=== PATIENT | male | born 1950 | race Caucasian/White ===

== ENCOUNTER 2017-05-22 08:31 | Inpatient (IN) | payer OTHER ==
[2017-05-22 10:48] VITALS: BMI 26.6
--- NOTE | 2017-05-22 13:13 | HP ---
CIWA Score - CIWA Score Nausea/Vomitin-No Nausea/No Vomiting Muscle Tremors: 4-Moderate,w/Arms Extend Anxiety: 3 Agitation: 4-Moderately Restless Paroxysmal Sweats: 3 Orientation: 0-Oriented Tacttile Disturbances: 0-None Auditory Disturbances: 0-None Visual Disturbances: 0-None Headache: 0-None Present CIWA-Ar Total Score: 14 Admission ROS BHS - HPI Chief Complaint: I am here for detox Allergies/Adverse Reactions: Allergies Allergy/AdvReac Type Severity Reaction Status Date / Time No Known Allergies Allergy Verified 05/22/17 10:59 History of Present Illness: pt is a 67yr old male with a history of alcohol dependence seeking detox for treatment. Exam Limitations: No Limitations - Ebola screening Have you traveled outside of the country in the last 21 days: No Have you had contact with anyone from an Ebola affected area: No Have you been sick,other than usual withdrawal symptoms: No Do you have a fever: No - Review of Systems Constitutional: Chills, Diaphoresis, Loss of Appetite, Night Sweats, Changes in sleep EENT: reports: No Symptoms Reported, Tearing Respiratory: reports: No Symptoms reported Cardiac: reports: No Symptoms Reported GI: reports: Diarrhea, Poor Appetite, Poor Fluid Intake, Indigestion : reports: No Symptoms Reported Musculoskeletal: reports: No Symptoms Reported Integumentary: reports: Flushing, Sweating Neuro: reports: Seizure (last seizure 2010), Tingling, Tremors Endocrine: reports: Excessive Sweating, Flushing, Intolerance to Cold, Intolerance to Heat Hematology: reports: No Symptoms Reported Psychiatric: reports: Judgement Intact, Mood/Affect Appropiate, Orientated x3, Agitated, Anxious, Depressed Other Systems: Reviewed and Negative Patient History - Patient Medical History Hx Anemia: No Hx Asthma: No Hx Chronic Obstructive Pulmonary Disease (COPD): No Hx Cancer: No Hx Cardiac Disorders: No Hx Congestive Heart Failure: No Hx Hypertension: Yes (on meds) Hx Hypercholesterolemia: Yes Hx Pacemaker: No HX Cerebrovascular Accident: No Hx Seizures: Yes (in 2010) Hx Dementia: No Hx Diabetes: No Hx Gastrointestinal Disorders: Yes (Hx of GERD) Hx Liver Disease: No Hx Genitourinary Disorders: No Hx Sexually Transmitted Disorders: No Hx Renal Disease (ESRD): No Hx Thyroid Disease: No Hx Human Immunodeficiency Virus (HIV): No (negative) Hx Hepatitis C: No (negative) Hx Depression: Yes Hx Suicide Attempt: No Hx Bipolar Disorder: No Hx Schizophrenia: No - Patient Surgical History Past Surgical History: Yes Hx Neurologic Surgery: Yes (Pituitary gland benigntumor removed in 2010) Anesthesia Reaction: No - PPD History Previous Implant?: Yes Documented Results: Negative w/o proof Implanted On Prior [facility] Admission?: No PPD to be Administered?: Yes - Reproductive History Patient is a Female of Child Bearing Age (11 -55 yrs old): No - Smoking Cessation Smoking history: Never smoked Hx Chewing Tobacco Use: No Initiated information on smoking cessation: No - Substance & Tx. History Hx Alcohol Use: Yes Hx Substance Use: No Substance Use Type: Alcohol Hx Substance Use Treatment: Yes (last detox 04/2017 [facility]) - Substances Abused Alcohol Route: Oral Frequency: Daily Amount used: 1 pint vodka Age of first use: 16 Date of Last Use: 05/21/17 Family Disease History - Family Disease History Family Disease History: Heart Disease: Father (), Other: Mother ( ) Admission Physical Exam [facility] - Vital Signs Vital Signs: Vital Signs - 24 hr 05/22/17 10:46 Temperature 97.2 F L Pulse Rate 73 Respiratory 20 Rate Blood Pressure 166/91 - Physical General Appearance: Yes: Appropriately Dressed, Moderate Distress, Tremorous, Irritable, Sweating, Anxious HEENTM: Yes: Hearing grossly Normal, Normal Voice Respiratory: Yes: Lungs Clear, Normal Breath Sounds, No Respiratory Distress Neck: Yes: No masses,lesions,Nodules Breast: Yes: Within Normal Limits Cardiology: Yes: Regular Rhythm, Regular Rate, S1, S2 Abdominal: Yes: Normal Bowel Sounds, Non Tender, Soft Back: Yes: Within Normal Limits Musculoskeletal: Yes: full range of Motion Extremities: Yes: Normal Capillary Refill, Normal Inspection, Tremors Neurological: Yes: Fully Oriented, Alert, Normal Response Integumentary: Yes: Normal Color, Diaphoresis Lymphatic: Yes: Within Normal Limits - Diagnostic (1) Alcohol dependence with uncomplicated withdrawal Current Visit: Yes Status: Chronic (2) Hypertension Current Visit: Yes Status: Chronic Qualifiers: Hypertension type: essential hypertension Qualified Code(s): I10 - Essential (primary) hypertension; I10 - Essential (primary) hypertension; I10 - Essential (primary) hypertension (3) Hyperlipidemia Current Visit: Yes Status: Chronic Qualifiers: Hyperlipidemia type: pure hypercholesterolemia Qualified Code(s): E78.00 - Pure hypercholesterolemia, unspecified; E78.00 - Pure hypercholesterolemia, unspecified; E78.00 - Pure hypercholesterolemia, unspecified; E78.0 - Pure hypercholesterolemia (4) GERD (gastroesophageal reflux disease) Current Visit: Yes Status: Chronic Qualifiers: Esophagitis presence: without esophagitis Qualified Code(s): K21.9 - Gastro-esophageal reflux disease without esophagitis; K21.9 - Gastro- esophageal reflux disease without esophagitis; K21.9 - Gastro-esophageal reflux disease without esophagitis Cleared for Admission BHS - Detox or Rehab S Level of Care: Medically Managed Detox Regimen/Protocol: Librium S Breath Alcohol Content Breath Alcohol Content: 0 Urine Drug Screen - Results Drug Screen Negative: No Urine Drug Screen Results: BZO-Benzodiazepines
[2017-05-22] MEDS ORDERED: ACETAMINOPHEN 325 MG TABLET (FP) PO PRN (13:16)
[2017-05-22] MEDS ORDERED: guaiFENesin/D-METHORPHAN HB 10 ML UNIT-DOSE CUPS PO PRN (13:16)
[2017-05-22] MEDS ORDERED: MAG HYDROX/AL HYDROX/SIMETH 30 ML UNIT-DOSE CUP PO PRN (13:16)
[2017-05-22] MEDS ORDERED: MAGNESIUM CITRATE 300 ML BOTTLE PO PRN (13:16)
[2017-05-22] MEDS ORDERED: IBUPROFEN 400 MG TABLET (FP) PO PRN (13:16)
[2017-05-22] MEDS ORDERED: chlordiazePOXIDE HCL 25 MG CAPSULE PO PRN (13:16)
[2017-05-22] MEDS ORDERED: LOPERAMIDE HCL 2 MG CAPSULE PO PRN (13:16)
[2017-05-22] MEDS ORDERED: P-EPHED 60MG/TRIPROLIDI 2.5MG TABLET PO PRN (13:16)
[2017-05-22] MEDS ORDERED: MENTHOL/PHENOL 1 EACH UD MM PRN (13:16)
[2017-05-22] MEDS ORDERED: hydrOXYzine PAMOATE 50 MG CAPSULE (FP) PO PRN (13:16)
[2017-05-22] MEDS ORDERED: diphenhydrAMINE HCL 50 MG CAPSULE PO PRN (13:16)
[2017-05-22] MEDS ORDERED: MAGNESIUM HYDROX 2400MG/30ML ORAL SUSPENSION 30 ML CUP PO PRN (13:16)
[2017-05-22] MEDS ORDERED: chlordiazePOXIDE HCL 25 MG CAPSULE PO ONE (13:37)
[2017-05-22] MEDS: chlordiazePOXIDE HCL 25 MG CAPSULE PO SCH ×2 (17:28→22:33)
[2017-05-22 20:25] LABS: URINE APPEARANCE CLEAR; URINE BILIRUBIN NEGATIVE (NEGATIVE); URINE BLOOD NEGATIVE (NEGATIVE); URINE COLOR LTYELLOW; URINE GLUCOSE (UA) NEGATIVE (NEGATIVE); URINE KETONE NEGATIVE (NEGATIVE); URINE NITRITE NEGATIVE (NEGATIVE); URINE PROTEIN NEGATIVE (NEGATIVE)
[2017-05-22] MEDS: DOXAZOSIN MESYLATE 4 MG TABLET PO SCH (22:34)
[2017-05-22] MEDS: THIAMINE HCL 100 MG TABLET (FP) PO SCH (22:34)
[2017-05-22 22:40] LABS: URINE LEUK ESTERASE Negative (NEGATIVE)
[2017-05-23] MEDS: chlordiazePOXIDE HCL 25 MG CAPSULE PO SCH ×4 (05:02→22:36)
--- NOTE | 2017-05-23 09:29 | EKG ---
Test Reason : Blood Pressure : / mmHG Vent. Rate : 054 BPM Atrial Rate : 054 BPM P-R Int : 160 ms QRS Dur : 092 ms QT Int : 422 ms P-R-T Axes : 011 -03 -02 degrees QTc Int : 400 ms SINUS BRADYCARDIA CANNOT RULE OUT ANTERIOR INFARCT , AGE UNDETERMINED NO PREVIOUS ECGS AVAILABLE Confirmed by HARRISON THOMAS MD ([id number]) on 05/23/2017 9:29:17 AM Referred By: Confirmed By:HARRISON THOMAS MD
[2017-05-23 09:51] LABS: MCH 26.2 pg (25.7-33.7); MCHC 32.3 g/dl (32.0-35.9); MEAN PLT VOLUME 9.1 fl (7.5-11.1); PLATELET COUNT 239 K/MM3 (134-434); RDW 15.7 % (11.9-15.9); WHITE BLOOD COUNT 5.1 K/mm3 (4.0-10.0)
[2017-05-23 09:53] LABS: ANION GAP 8 (8-16); CALCIUM 8.8 mg/dL (8.5-10.1); CO2 26 mmol/L (21-32); GLUCOSE,RANDOM 112 mg/dL (74-106)
[2017-05-23 09:56] LABS: ALK PHOS 57 U/L (45-117); CREATININE 1.1 mg/dL (0.7-1.3); SGOT/AST 15 U/L (15-37); SGPT/ALT 14 U/L (12-78); TOT PROT 7.7 g/dl (6.4-8.2)
[2017-05-23] MEDS: PANTOPRAZOLE 40 MG TABLET (FP) PO SCH (10:35)
[2017-05-23] MEDS: LISINOPRIL 10 MG TABLET (FP) PO SCH (10:35)
[2017-05-23] MEDS: FINASTERIDE 5 MG TABLET (FP) PO SCH (10:36)
[2017-05-23] MEDS: FENOFIBRIC ACID 135 MG CAP PO SCH (10:36)
[2017-05-23] MEDS: PRENATAL VITAMINS W/ FOLIC ACID TABLET (FP) PO SCH (10:37)
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
--- NOTE | 2017-05-23 12:49 | PN ---
[facility] CIWA - CIWA Score Nausea/Vomitin-No Nausea/No Vomiting Muscle Tremors: 4-Moderate,w/Arms Extend Anxiety: 3 Agitation: 2 Paroxysmal Sweats: 3 Orientation: 0-Oriented Tacttile Disturbances: 2-Mild Itch/Numbness/Burn Auditory Disturbances: 3-Moderate Harsh/Frighten Visual Disturbances: 0-None Headache: 0-None Present CIWA-Ar Total Score: 17 BHS Progress Note (SOAP) Subjective: Tremors, Sweating, Diarrhea. Objective: PT. A & O X 3, OBSERVED AMBULATING ON UNIT. NO ACUTE DISTRESS. 05/23/17 12:47 Vital Signs Temperature 98.4 F 05/23/17 10:00 Pulse Rate 96 H 05/23/17 10:00 Respiratory Rate 18 05/23/17 10:00 Blood Pressure 111/72 05/23/17 10:00 O2 Sat by Pulse Oximetry (%) Laboratory Tests 05/22/17 05/23/17 05/23/17 19:43 06:00 06:00 WBC 5.1 RBC 5.27 Hgb 13.8 Hct 42.7 MCV 81.0 MCH 26.2 MCHC 32.3 RDW 15.7 Plt Count 239 MPV 9.1 Sodium 137 Potassium 3.7 Chloride 103 Carbon Dioxide 26 Anion Gap 8 BUN 11 Creatinine 1.1 Creat Clearance w eGFR > 60 Random Glucose 112 H Calcium 8.8 Total Bilirubin 1.0 AST 15 ALT 14 Alkaline Phosphatase 57 Total Protein 7.7 Albumin 4.0 Urine Color Ltyellow Urine Appearance Clear Urine pH 7.0 Ur Specific [place] 1.010 Urine Protein Negative Urine Glucose (UA) Negative Urine Ketones Negative Urine Blood Negative Urine Nitrite Negative Urine Bilirubin Negative Urine Urobilinogen 2.0 Ur Leukocyte Esterase Negative RPR Titer 05/23/17 06:00 WBC RBC Hgb Hct MCV MCH MCHC RDW Plt Count MPV Sodium Potassium Chloride Carbon Dioxide Anion Gap BUN Creatinine Creat Clearance w eGFR Random Glucose Calcium Total Bilirubin AST ALT Alkaline Phosphatase Total Protein Albumin Urine Color Urine Appearance Urine pH Ur Specific [place] Urine Protein Urine Glucose (UA) Urine Ketones Urine Blood Urine Nitrite Urine Bilirubin Urine Urobilinogen Ur Leukocyte Esterase RPR Titer Nonreactive LABS NOTED. Assessment: 05/23/17 12:48 WITHDRAWAL SYMPTOMS. Plan: CONTINUE DETOX. PRN IMMODIUM FOR DIARRHEA. INCREASE DAILY PO FLUID INTAKE.
[2017-05-23] MEDS ORDERED: GABAPENTIN 100 MG CAPSULE (FP) PO SCH (14:00)
[2017-05-23] MEDS: ESCITALOPRAM OXALATE 10 MG TABLET (FP) PO SCH (15:07)
[2017-05-23] MEDS: THIAMINE HCL 100 MG TABLET (FP) PO SCH (22:35)
[2017-05-23] MEDS: DOXAZOSIN MESYLATE 4 MG TABLET PO SCH (22:36)
[2017-05-24] MEDS: chlordiazePOXIDE HCL 25 MG CAPSULE PO SCH ×2 (05:06→10:39)
[2017-05-24] MEDS: ESCITALOPRAM OXALATE 10 MG TABLET (FP) PO SCH (10:39)
[2017-05-24] MEDS: FINASTERIDE 5 MG TABLET (FP) PO SCH (10:39)
[2017-05-24] MEDS: PRENATAL VITAMINS W/ FOLIC ACID TABLET (FP) PO SCH (10:39)
[2017-05-24] MEDS: LISINOPRIL 10 MG TABLET (FP) PO SCH (10:39)
[2017-05-24] MEDS: FENOFIBRIC ACID 135 MG CAP PO SCH (10:39)
[2017-05-24] MEDS: PANTOPRAZOLE 40 MG TABLET (FP) PO SCH (10:40)
--- NOTE | 2017-05-24 16:09 | PN ---
S CIWA - CIWA Score Nausea/Vomitin Muscle Tremors: 4-Moderate,w/Arms Extend Anxiety: 3 Agitation: 2 Paroxysmal Sweats: 3 Orientation: 0-Oriented Tacttile Disturbances: 2-Mild Itch/Numbness/Burn Auditory Disturbances: 0-None Visual Disturbances: 0-None Headache: 0-None Present CIWA-Ar Total Score: 16 BHS Progress Note (SOAP) Subjective: Diarrhea, Sweating, Tremors. Objective: PT. A & O X 3, OBSERVED AMBULATING ON UNIT. NO ACUTE DISTRESS. 05/24/17 16:08 Vital Signs Temperature 96.2 F L 05/24/17 13:39 Pulse Rate 84 05/24/17 13:39 Respiratory Rate 18 05/24/17 13:39 Blood Pressure 118/70 05/24/17 13:39 O2 Sat by Pulse Oximetry (%) Laboratory Tests 05/22/17 05/23/17 05/23/17 19:43 06:00 06:00 WBC 5.1 RBC 5.27 Hgb 13.8 Hct 42.7 MCV 81.0 MCH 26.2 MCHC 32.3 RDW 15.7 Plt Count 239 MPV 9.1 Sodium 137 Potassium 3.7 Chloride 103 Carbon Dioxide 26 Anion Gap 8 BUN 11 Creatinine 1.1 Creat Clearance w eGFR > 60 Random Glucose 112 H Calcium 8.8 Total Bilirubin 1.0 AST 15 ALT 14 Alkaline Phosphatase 57 Total Protein 7.7 Albumin 4.0 Urine Color Ltyellow Urine Appearance Clear Urine pH 7.0 Ur Specific [place] 1.010 Urine Protein Negative Urine Glucose (UA) Negative Urine Ketones Negative Urine Blood Negative Urine Nitrite Negative Urine Bilirubin Negative Urine Urobilinogen 2.0 Ur Leukocyte Esterase Negative RPR Titer 05/23/17 06:00 WBC RBC Hgb Hct MCV MCH MCHC RDW Plt Count MPV Sodium Potassium Chloride Carbon Dioxide Anion Gap BUN Creatinine Creat Clearance w eGFR Random Glucose Calcium Total Bilirubin AST ALT Alkaline Phosphatase Total Protein Albumin Urine Color Urine Appearance Urine pH Ur Specific [place] Urine Protein Urine Glucose (UA) Urine Ketones Urine Blood Urine Nitrite Urine Bilirubin Urine Urobilinogen Ur Leukocyte Esterase RPR Titer Nonreactive LABS NOTED. Assessment: 05/24/17 16:08 WITHDRAWAL SYMPTOMS. Plan: CONTINUE DETOX. PRN IMMODIUM FOR DIARRHEA. INCREASE DAILY PO FLUID INTAKE.
[2017-05-24] MEDS: chlordiazePOXIDE 5 MG CAPSULE PO SCH ×2 (18:00→22:26)
[2017-05-24] MEDS: THIAMINE HCL 100 MG TABLET (FP) PO SCH (22:26)
[2017-05-24] MEDS: DOXAZOSIN MESYLATE 4 MG TABLET PO SCH (22:26)
[2017-05-25] MEDS: chlordiazePOXIDE 5 MG CAPSULE PO SCH ×2 (05:34→10:17)
[2017-05-25] MEDS: PRENATAL VITAMINS W/ FOLIC ACID TABLET (FP) PO SCH (10:17)
[2017-05-25] MEDS: LISINOPRIL 10 MG TABLET (FP) PO SCH (10:17)
[2017-05-25] MEDS: FENOFIBRIC ACID 135 MG CAP PO SCH (10:17)
[2017-05-25] MEDS: PANTOPRAZOLE 40 MG TABLET (FP) PO SCH (10:18)
[2017-05-25] MEDS: ESCITALOPRAM OXALATE 10 MG TABLET (FP) PO SCH (10:18)
[2017-05-25] MEDS: FINASTERIDE 5 MG TABLET (FP) PO SCH (10:18)
--- NOTE | 2017-05-25 12:28 | PN ---
BHS Progress Note (SOAP) Subjective: SLIGHT ANXIETY,SWEATS,FATIGUE. Objective: 05/25/17 12:27 Vital Signs Temperature 98.0 F 05/25/17 10:08 Pulse Rate 77 05/25/17 10:08 Respiratory Rate 18 05/25/17 10:08 Blood Pressure 141/74 05/25/17 10:08 O2 Sat by Pulse Oximetry (%) Laboratory Last Values WBC 5.1 K/mm3 (4.0-10.0) 05/23/17 06:00 RBC 5.27 M/mm3 (4.00-5.60) 05/23/17 06:00 Hgb 13.8 GM/dL (11.7-16.9) 05/23/17 06:00 Hct 42.7 % (35.4-49) 05/23/17 06:00 MCV 81.0 fl (80-96) 05/23/17 06:00 MCH 26.2 pg (25.7-33.7) 05/23/17 06:00 MCHC 32.3 g/dl (32.0-35.9) 05/23/17 06:00 RDW 15.7 % (11.9-15.9) 05/23/17 06:00 Plt Count 239 K/MM3 (134-434) 05/23/17 06:00 MPV 9.1 fl (7.5-11.1) 05/23/17 06:00 Sodium 137 mmol/L (136-145) 05/23/17 06:00 Potassium 3.7 mmol/L (3.5-5.1) 05/23/17 06:00 Chloride 103 mmol/L (98-107) 05/23/17 06:00 Carbon Dioxide 26 mmol/L (21-32) 05/23/17 06:00 Anion Gap 8 (8-16) 05/23/17 06:00 BUN 11 mg/dL (7-18) 05/23/17 06:00 Creatinine 1.1 mg/dL (0.7-1.3) 05/23/17 06:00 Creat Clearance w eGFR > 60 (>60) 05/23/17 06:00 Random Glucose 112 mg/dL (74-106) H 05/23/17 06:00 Calcium 8.8 mg/dL (8.5-10.1) 05/23/17 06:00 Total Bilirubin 1.0 mg/dL (0.2-1.0) 05/23/17 06:00 AST 15 U/L (15-37) 05/23/17 06:00 ALT 14 U/L (12-78) 05/23/17 06:00 Alkaline Phosphatase 57 U/L (45-117) 05/23/17 06:00 Total Protein 7.7 g/dl (6.4-8.2) 05/23/17 06:00 Albumin 4.0 g/dl (3.4-5.0) 05/23/17 06:00 Urine Color Ltyellow 05/22/17 19:43 Urine Appearance Clear 05/22/17 19:43 Urine pH 7.0 (5.0-8.0) 05/22/17 19:43 Ur Specific [place] 1.010 (1.005-1.025) 05/22/17 19:43 Urine Protein Negative (NEGATIVE) 05/22/17 19:43 Urine Glucose (UA) Negative (NEGATIVE) 05/22/17 19:43 Urine Ketones Negative (NEGATIVE) 05/22/17 19:43 Urine Blood Negative (NEGATIVE) 05/22/17 19:43 Urine Nitrite Negative (NEGATIVE) 05/22/17 19:43 Urine Bilirubin Negative (NEGATIVE) 05/22/17 19:43 Urine Urobilinogen 2.0 mg/dL (0.2-1.0) 05/22/17 19:43 Ur Leukocyte Esterase Negative (NEGATIVE) 05/22/17 19:43 RPR Titer Nonreactive (NONREACTIVE) 05/23/17 06:00 Assessment: 05/25/17 12:27 WITHDRAWAL SX Plan: CONTINUE DETOX
[2017-05-25] MEDS: chlordiazePOXIDE HCL 10 MG CAPSULE PO SCH ×2 (17:12→22:25)
[2017-05-25] MEDS: DOXAZOSIN MESYLATE 4 MG TABLET PO SCH (22:25)
[2017-05-25] MEDS: THIAMINE HCL 100 MG TABLET (FP) PO SCH (22:26)
[2017-05-26] MEDS: chlordiazePOXIDE HCL 10 MG CAPSULE PO SCH ×2 (05:44→10:26)
[2017-05-26 09:47] VITALS: BP 120/62; PULSE 89; TEMP 97.4
[2017-05-26] MEDS: ESCITALOPRAM OXALATE 10 MG TABLET (FP) PO SCH (10:26)
[2017-05-26] MEDS: PRENATAL VITAMINS W/ FOLIC ACID TABLET (FP) PO SCH (10:26)
[2017-05-26] MEDS: FENOFIBRIC ACID 135 MG CAP PO SCH (10:26)
[2017-05-26] MEDS: LISINOPRIL 10 MG TABLET (FP) PO SCH (10:26)
[2017-05-26] MEDS: PANTOPRAZOLE 40 MG TABLET (FP) PO SCH (10:26)
[2017-05-26] MEDS: FINASTERIDE 5 MG TABLET (FP) PO SCH (10:26)
--- NOTE | 2017-05-26 13:43 | DS ---
[facility] Detox Discharge Summary Admission Date: 05/22/17 Discharge Date: 05/26/17 - History Present History: Alcohol Dependence Additional Comments: PATIENT GOING HOME AT THIS TIME TO ATTEND TO PERSONAL BUSINESS, BUT REPORTS THAT HE WILL RETURN SOON FOR ADMISSION TO [facility]. PATIENT WAS DISCHARGED FROM DETOX UNIT IN STABLE MEDICAL CONDITION. Pertinent Past History: HTN, History of Seizures, GERD, Hyperlipidemia, Depression. - Physical Exam Results Vital Signs: Vital Signs Temperature 97.4 F L 05/26/17 09:47 Pulse Rate 89 05/26/17 09:47 Respiratory Rate 18 05/26/17 09:47 Blood Pressure 120/62 05/26/17 09:47 O2 Sat by Pulse Oximetry (%) Pertinent Admission Physical Exam Findings: WITHDRAWAL SYMPTOMS. Laboratory Tests 05/22/17 05/23/17 05/23/17 19:43 06:00 06:00 WBC 5.1 RBC 5.27 Hgb 13.8 Hct 42.7 MCV 81.0 MCH 26.2 MCHC 32.3 RDW 15.7 Plt Count 239 MPV 9.1 Sodium 137 Potassium 3.7 Chloride 103 Carbon Dioxide 26 Anion Gap 8 BUN 11 Creatinine 1.1 Creat Clearance w eGFR > 60 Random Glucose 112 H Calcium 8.8 Total Bilirubin 1.0 AST 15 ALT 14 Alkaline Phosphatase 57 Total Protein 7.7 Albumin 4.0 Urine Color Ltyellow Urine Appearance Clear Urine pH 7.0 Ur Specific [place] 1.010 Urine Protein Negative Urine Glucose (UA) Negative Urine Ketones Negative Urine Blood Negative Urine Nitrite Negative Urine Bilirubin Negative Urine Urobilinogen 2.0 Ur Leukocyte Esterase Negative RPR Titer 05/23/17 06:00 WBC RBC Hgb Hct MCV MCH MCHC RDW Plt Count MPV Sodium Potassium Chloride Carbon Dioxide Anion Gap BUN Creatinine Creat Clearance w eGFR Random Glucose Calcium Total Bilirubin AST ALT Alkaline Phosphatase Total Protein Albumin Urine Color Urine Appearance Urine pH Ur Specific [place] Urine Protein Urine Glucose (UA) Urine Ketones Urine Blood Urine Nitrite Urine Bilirubin Urine Urobilinogen Ur Leukocyte Esterase RPR Titer Nonreactive LABS NOTED. - Treatment Hospital Course: Detox Protocol Followed, Detoxed Safely, Responded well, Discharged Condition Good, Rehab Referral Accepted Patient has Accepted a Rehab Referral to: [facility]. - Medication Discharge Medications: Ambulatory Orders Escitalopram Oxalate [Lexapro -] 10 mg PO DAILY 05/22/17 Finasteride [Proscar -] 5 mg PO DAILY 05/22/17 Pantoprazole Sodium [Protonix -] 40 mg PO DAILY 05/22/17 Doxazosin Mesylate [Cardura -] 8 mg PO HS #30 mg 05/26/17 Fenofibrate Nanocrystallized [Fenofibrate] 145 mg PO DAILY #30 mg 05/26/17 Lisinopril [Zestril] 30 mg PO DAILY #30 mg 05/26/17 - Diagnosis (1) Alcohol dependence with uncomplicated withdrawal Status: Acute (2) Depressive disorder Status: Chronic (3) GERD (gastroesophageal reflux disease) Status: Chronic Qualifiers: Esophagitis presence: without esophagitis Qualified Code(s): K21.9 - Gastro-esophageal reflux disease without esophagitis; K21.9 - Gastro- esophageal reflux disease without esophagitis; K21.9 - Gastro-esophageal reflux disease without esophagitis (4) Hyperlipidemia Status: Chronic Qualifiers: Hyperlipidemia type: pure hypercholesterolemia Qualified Code(s): E78.00 - Pure hypercholesterolemia, unspecified; E78.00 - Pure hypercholesterolemia, unspecified; E78.00 - Pure hypercholesterolemia, unspecified; E78.0 - Pure hypercholesterolemia (5) Hypertension Status: Chronic Qualifiers: Hypertension type: essential hypertension Qualified Code(s): I10 - Essential (primary) hypertension; I10 - Essential (primary) hypertension; I10 - Essential (primary) hypertension (6) Alcohol-induced mood disorder Status: Suspected - AMA Did Patient Leave Against Medical Advice: No
== END 2017-05-26 09:35 | disposition home or self-care (01) | DRG 775 ==
LOC: YASAS 08:31 → Y3N 13:14
PROVIDERS: ADMIT Internal Medicine; ATTEND Internal Medicine
PROC: HZ2ZZZZ Detoxification Services for Substance Abuse Treatment (ICD-10-PCS; principal; 2017-05-22)
DX: F10.230 Alcohol dependence with withdrawal, uncomplicated (principal); F10.24 Alcohol dependence with alcohol-induced mood disorder; F32.9 Major depressive disorder, single episode, unspecified; I10 Essential (primary) hypertension; E78.00 Pure hypercholesterolemia, unspecified; K21.9 Gastro-esophageal reflux disease without esophagitis
CPT/HCPCS: 36415; 80053; 81003; 85027; 86593; 93005; 93010

== ENCOUNTER 2017-07-27 15:06 | Inpatient (IN) | payer OTHER ==
[2017-07-27 15:29] VITALS: BMI 25.8
[2017-07-27] MEDS ORDERED: MAG HYDROX/AL HYDROX/SIMETH 30 ML UNIT-DOSE CUP PO PRN (15:35)
[2017-07-27] MEDS ORDERED: LOPERAMIDE HCL 2 MG CAPSULE PO PRN (15:35)
[2017-07-27] MEDS ORDERED: P-EPHED 60MG/TRIPROLIDI 2.5MG TABLET PO PRN (15:35)
[2017-07-27] MEDS ORDERED: guaiFENesin/D-METHORPHAN HB 10 ML UNIT-DOSE CUPS PO PRN (15:35)
[2017-07-27] MEDS ORDERED: MAGNESIUM CITRATE 300 ML BOTTLE PO PRN (15:35)
[2017-07-27] MEDS ORDERED: ACETAMINOPHEN 325 MG TABLET (FP) PO PRN (15:35)
[2017-07-27] MEDS ORDERED: MAGNESIUM HYDROX 2400MG/30ML ORAL SUSPENSION 30 ML CUP PO PRN (15:35)
[2017-07-27] MEDS ORDERED: MENTHOL/PHENOL 1 EACH UD MM PRN (15:35)
--- NOTE | 2017-07-27 15:38 | HP ---
CIWA Score - CIWA Score Nausea/Vomitin Muscle Tremors: 3 Anxiety: 4-Mod. Anxious/Guarded Agitation: 4-Moderately Restless Paroxysmal Sweats: 1-Minimal Palms Moist Orientation: 0-Oriented Tacttile Disturbances: 0-None Auditory Disturbances: 0-None Visual Disturbances: 0-None Headache: 0-None Present CIWA-Ar Total Score: 14 Admission ROS BHS - HPI Chief Complaint: withdrawal sx Allergies/Adverse Reactions: Allergies Allergy/AdvReac Type Severity Reaction Status Date / Time No Known Allergies Allergy Verified 07/27/17 15:30 History of Present Illness: 67 years old male with long history of alcohol dependence has gerd hypertension bph hyperlipidemia and depression is admitted to detox Exam Limitations: No Limitations - Ebola screening Have you traveled outside of the country in the last 21 days: No Have you had contact with anyone from an Ebola affected area: No Have you been sick,other than usual withdrawal symptoms: No Do you have a fever: No - Review of Systems Constitutional: Changes in sleep, Weight Stable EENT: reports: No Symptoms Reported Respiratory: reports: No Symptoms reported Cardiac: reports: No Symptoms Reported GI: reports: Nausea, Poor Fluid Intake, Vomiting, Indigestion, Abdominal cramping : reports: Urgency Musculoskeletal: reports: No Symptoms Reported Integumentary: reports: No Symptoms Reported Neuro: reports: Seizure (2009 alcohol withdrawal), Tremors Endocrine: reports: No Symptoms Reported Hematology: reports: No Symptoms Reported Psychiatric: reports: Judgement Intact, Orientated x3, Anxious, Depressed Other Systems: Reviewed and Negative Patient History - Patient Medical History Hx Anemia: No Hx Asthma: No Hx Chronic Obstructive Pulmonary Disease (COPD): No Hx Cancer: No Hx Cardiac Disorders: No Hx Congestive Heart Failure: No Hx Hypertension: Yes (on meds) Hx Hypercholesterolemia: Yes Hx Pacemaker: No HX Cerebrovascular Accident: No Hx Seizures: Yes (in 2010) Hx Dementia: No Hx Diabetes: No Hx Gastrointestinal Disorders: Yes (Hx of GERD) Hx Liver Disease: No Hx Genitourinary Disorders: No Hx Sexually Transmitted Disorders: No Hx Renal Disease (ESRD): No Hx Thyroid Disease: No Hx Human Immunodeficiency Virus (HIV): No (negative) Hx Hepatitis C: No (negative) Hx Depression: Yes Hx Suicide Attempt: No Hx Bipolar Disorder: No Hx Schizophrenia: No - Patient Surgical History Past Surgical History: Yes Hx Neurologic Surgery: Yes (Pituitary gland benigntumor removed in 2010) Hx Cataract Extraction: No Hx Cardiac Surgery: No Hx Lung Surgery: No Hx Breast Surgery: No Hx Breast Biopsy: No Hx Abdominal Surgery: No Hx Appendectomy: No Hx Cholecystectomy: No Hx Genitourinary Surgery: No Hx Orthopedic Surgery: No Anesthesia Reaction: No - PPD History Previous Implant?: Yes Documented Results: Negative w/proof Implanted On Prior [facility] Admission?: Yes Date: 05/24/17 PPD to be Administered?: No - Smoking Cessation Smoking history: Never smoked Hx Chewing Tobacco Use: No Initiated information on smoking cessation: No - Substance & Tx. History Hx Alcohol Use: Yes Hx Substance Use: No Substance Use Type: Alcohol Hx Substance Use Treatment: Yes ([facility]07/13/17) - Substances Abused Alcohol Route: Oral Frequency: Daily Family Disease History - Family Disease History Family Disease History: Heart Disease: Father (), Brother, Other: Mother () Admission Physical Exam BHS - Vital Signs Vital Signs: Vital Signs - 24 hr 07/27/17 15:26 Temperature 97 F L Pulse Rate 108 H Respiratory 20 Rate Blood Pressure 110/65 - Physical General Appearance: Yes: Appropriately Dressed, Mild Distress, Thin, Tremorous, Irritable, Sweating, Anxious HEENTM: Yes: Hearing grossly Normal, Normal ENT Inspection, Normocephalic, Normal Voice Respiratory: Yes: Chest Non-Tender, Lungs Clear, Normal Breath Sounds, No Respiratory Distress, No Accessory Muscle Use Neck: Yes: Supple, Trachea in good position Breast: Yes: Breasts Symetrical Cardiology: Yes: Regular Rhythm, S1, S2, Tachycardia Abdominal: Yes: Normal Bowel Sounds, Non Tender, Soft Genitourinary: Yes: Within Normal Limits Back: Yes: Normal Inspection Musculoskeletal: Yes: full range of Motion, Gait Steady Extremities: Yes: Normal Range of Motion, Non-Tender, Tremors Neurological: Yes: Fully Oriented, Alert, Motor Strength 5/5, Normal Response, Depressed Affect Integumentary: Yes: Warm Lymphatic: Yes: Within Normal Limits - Diagnostic (1) Depression (emotion) Current Visit: Yes Status: Suspected Qualifiers: Depression Type: dysthymia Qualified Code(s): F34.1 - Dysthymic disorder (2) BPH (benign prostatic hyperplasia) Current Visit: Yes Status: Chronic Qualifiers: Lower urinary tract symptom presence: symptoms present Lower urinary tract symptom detail: post-void dribbling Qualified Code(s): N40.1 - Benign prostatic hyperplasia with lower urinary tract symptoms; N39.43 - Post-void dribbling; N39.43 - Post-void dribbling (3) Alcohol dependence with uncomplicated withdrawal Current Visit: Yes Status: Acute (4) GERD (gastroesophageal reflux disease) Current Visit: Yes Status: Chronic Qualifiers: Esophagitis presence: without esophagitis Qualified Code(s): K21.9 - Gastro -esophageal reflux disease without esophagitis (5) Hyperlipidemia Current Visit: Yes Status: Chronic Qualifiers: Hyperlipidemia type: pure hypercholesterolemia Qualified Code(s): E78.00 - Pure hypercholesterolemia, unspecified (6) Hypertension Current Visit: Yes Status: Chronic Qualifiers: Hypertension type: essential hypertension Qualified Code(s): I10 - Essential (primary) hypertension Cleared for Admission [facility] - Detox or Rehab [facility] Level of Care: Medically Managed Detox Regimen/Protocol: Librium S Breath Alcohol Content Breath Alcohol Content: 0.319 Urine Drug Screen - Results Drug Screen Negative: Yes
[2017-07-27] MEDS ORDERED: METHOCARBAMOL 500 MG TABLET PO ONE ×2 (15:43→22:15)
[2017-07-27] MEDS: chlordiazePOXIDE HCL 25 MG CAPSULE PO PRN (17:56)
[2017-07-27] MEDS ORDERED: DOXAZOSIN MESYLATE 8 MG TABLET PO SCH (22:00)
[2017-07-27] MEDS: THIAMINE HCL 100 MG TABLET (FP) PO SCH (22:09)
[2017-07-27] MEDS: chlordiazePOXIDE HCL 25 MG CAPSULE PO SCH (22:12)
[2017-07-27 22:50] LABS: URINE APPEARANCE SLCLOUDY; URINE BILIRUBIN NEGATIVE (NEGATIVE); URINE BLOOD NEGATIVE (NEGATIVE); URINE COLOR YELLOW; URINE GLUCOSE (UA) NEGATIVE (NEGATIVE); URINE KETONE NEGATIVE (NEGATIVE); URINE LEUK ESTERASE NEGATIVE (NEGATIVE); URINE NITRITE NEGATIVE (NEGATIVE); URINE PROTEIN NEGATIVE (NEGATIVE)
[2017-07-28] MEDS: chlordiazePOXIDE HCL 25 MG CAPSULE PO SCH ×4 (05:34→22:24)
--- NOTE | 2017-07-28 07:34 | CONSULT ---
[facility] Psychiatric Consult - Data Date of interview: 07/28/17 Admission source: [facility] Identifying data: This is 67 years old male with no psychiatric hosp[ italization history intoxicated with : Alcohol Substance Abuse History: - Smoking Cessation. Smoking history: Never smoked. Hx Chewing Tobacco Use: No. Initiated information on smoking cessation: No. - Substance & Tx. History. Hx Alcohol Use: Yes. Hx Substance Use: No. Substance Use Type: Alcohol. Hx Substance Use Treatment: Yes ([facility]07/13/17). - Substances Abused. Alcohol. Route: Oral. Frequency: Daily Medical History: HTN, BPH, Hyperlipidemia, GERD Psychiatric History: Patient reports history of depression, reports taking prior to admission: Celexa 20mg poqd. Trazodone 50mmg po qhs Physical/Sexual Abuse/Trauma History: Denies Additional Comment: Celexa 20mg poqd. Trazodone 50mmg po qhs Mental Status Exam - Mental Status Exam Alert and Oriented to: Time Cognitive Function: Fair Patient Appearance: Unkempt Mood: Sad Affect: Flat Patient Behavior: Sedated Speech Pattern: Delayed Voice Loudness: Mildly Soft/Quiet Thought Process: Circumstantial Thought Disorder: Being Controlled Hallucinations: Denies Suicidal Ideation: Denies Homicidal Ideation: Denies Insight/Judgement: Fair Sleep: Difficulty falling asleep Appetite: Weight loss Muscle strength/Tone: Mild Hypotonicity Gait/Station: Shuffling Additional Comments: Celexa 20mg poqd. Trazodone 50mmg po qhs Psychiatric Findings - Problem List ([place] 1, 2,3) (1) Alcohol dependence with uncomplicated withdrawal Current Visit: Yes Status: Acute (2) Depressive disorder Current Visit: No Status: Chronic (3) Alcohol-induced mood disorder Current Visit: No Status: Suspected - Initial Treatment Plan Initial Treatment Plan: Celexa 20mg poqd. Trazodone 50mmg po qhs
[2017-07-28 09:56] LABS: MCH 25.5 pg (25.7-33.7); MCHC 31.9 g/dl (32.0-35.9); MEAN CELL VOLUME 79.9 fl (80-96); MEAN PLT VOLUME 8.7 fl (7.5-11.1); PLATELET COUNT 180 K/MM3 (134-434); RDW 15.2 % (11.9-15.9); WHITE BLOOD COUNT 4.3 K/mm3 (4.0-10.0)
--- NOTE | 2017-07-28 10:03 | PN ---
S CIWA - CIWA Score Nausea/Vomitin-Mild Nausea/No Vomiting Muscle Tremors: 4-Moderate,w/Arms Extend Anxiety: 3 Agitation: 3 Paroxysmal Sweats: 3 Orientation: 0-Oriented Tacttile Disturbances: 0-None Auditory Disturbances: 0-None Visual Disturbances: 0-None Headache: 0-None Present CIWA-Ar Total Score: 14 BHS Progress Note (SOAP) Subjective: nausea irritable diarrhea sweats shakes Objective: 07/28/17 10:02 Vital Signs Temperature 98.2 F 07/28/17 06:32 Pulse Rate 101 H 07/28/17 06:32 Respiratory Rate 20 07/28/17 06:32 Blood Pressure 111/60 07/28/17 06:32 O2 Sat by Pulse Oximetry (%) Laboratory Tests 07/27/17 18:30 Urine Color Yellow Urine Appearance Slcloudy Urine pH 6.0 Ur Specific [place] 1.015 Urine Protein Negative Urine Glucose (UA) Negative Urine Ketones Negative Urine Blood Negative Urine Nitrite Negative Urine Bilirubin Negative Urine Urobilinogen 2.0 labs pending aaox3 ambulating no acute distress Assessment: 07/28/17 10:02 withdrawal sx Plan: continue detox increase fluids labs pending
[2017-07-28 10:04] LABS: ALBUMIN 3.3 g/dl (3.4-5.0); ALK PHOS 57 U/L (45-117); ANION GAP 12 (8-16); BILIRUBIN,TOTAL 1.7 mg/dL (0.2-1.0); CALCIUM 8.1 mg/dL (8.5-10.1); CO2 26 mmol/L (21-32); CREATININE 1.2 mg/dL (0.7-1.3); GLUCOSE,RANDOM 138 mg/dL (74-106); SGOT/AST 24 U/L (15-37); SGPT/ALT 20 U/L (12-78); TOT PROT 6.9 g/dl (6.4-8.2)
[2017-07-28] MEDS: PRENATAL VITAMINS W/ FOLIC ACID TABLET (FP) PO SCH (10:12)
[2017-07-28] MEDS: CITALOPRAM HYDROBROMIDE 20 MG TABLET (FP) PO SCH (10:13)
[2017-07-28] MEDS: PANTOPRAZOLE 40 MG TABLET (FP) PO SCH (10:13)
[2017-07-28] MEDS: LOSARTAN POTASSIUM 50 MG TABLET (FP) PO SCH (11:29)
[2017-07-28] MEDS: chlordiazePOXIDE HCL 25 MG CAPSULE PO PRN (12:37)
[2017-07-28 17:23] LABS: URINE LEUK ESTERASE Negative (NEGATIVE)
[2017-07-28] MEDS: DOXAZOSIN MESYLATE 4 MG TABLET PO SCH (22:24)
[2017-07-28] MEDS: traZODone HCL 50 MG TABLET (FP) PO SCH (22:24)
[2017-07-28] MEDS: THIAMINE HCL 100 MG TABLET (FP) PO SCH (22:24)
--- NOTE | 2017-07-29 01:55 | EKG ---
Test Reason : Blood Pressure : / mmHG Vent. Rate : 106 BPM Atrial Rate : 106 BPM P-R Int : 158 ms QRS Dur : 076 ms QT Int : 326 ms P-R-T Axes : 052 -24 018 degrees QTc Int : 433 ms SINUS TACHYCARDIA OTHERWISE NORMAL ECG WHEN COMPARED WITH ECG OF 22-MAY-2017 15:02, VENT. RATE HAS INCREASED BY 52 BPM Confirmed by MAGALYS MILLS MD ([id number]) on 07/29/2017 1:55:13 AM Referred By: Confirmed By:MAGALYS MILLS MD
[2017-07-29] MEDS: chlordiazePOXIDE HCL 25 MG CAPSULE PO SCH ×3 (06:37→17:08)
[2017-07-29] MEDS: CITALOPRAM HYDROBROMIDE 20 MG TABLET (FP) PO SCH (10:10)
[2017-07-29] MEDS: LOSARTAN POTASSIUM 50 MG TABLET (FP) PO SCH (10:10)
[2017-07-29] MEDS: PANTOPRAZOLE 40 MG TABLET (FP) PO SCH (10:10)
[2017-07-29] MEDS: PRENATAL VITAMINS W/ FOLIC ACID TABLET (FP) PO SCH (10:10)
--- NOTE | 2017-07-29 10:16 | PN ---
BHS Progress Note (SOAP) Subjective: feeling better little sweats Objective: 07/29/17 10:16 Vital Signs Temperature 98.3 F 07/29/17 06:17 Pulse Rate 72 07/29/17 06:17 Respiratory Rate 18 07/29/17 06:17 Blood Pressure 112/76 07/29/17 06:17 O2 Sat by Pulse Oximetry (%)
--- NOTE | 2017-07-29 10:20 | PN ---
S CIWA - CIWA Score Nausea/Vomitin-No Nausea/No Vomiting Muscle Tremors: 4-Moderate,w/Arms Extend Anxiety: 3 Agitation: 3 Paroxysmal Sweats: 3 Orientation: 0-Oriented Tacttile Disturbances: 0-None Auditory Disturbances: 0-None Visual Disturbances: 0-None Headache: 0-None Present CIWA-Ar Total Score: 13 BHS Progress Note (SOAP) Subjective: sweats shakes interrupted sleep body aches Objective: 07/29/17 10:18 Vital Signs Temperature 98.3 F 07/29/17 06:17 Pulse Rate 72 07/29/17 06:17 Respiratory Rate 18 07/29/17 06:17 Blood Pressure 112/76 07/29/17 06:17 O2 Sat by Pulse Oximetry (%) Laboratory Tests 07/27/17 07/28/17 07/28/17 18:30 07:00 07:00 WBC 4.3 RBC 5.45 Hgb 13.9 Hct 43.5 MCV 79.9 L MCH 25.5 L MCHC 31.9 L RDW 15.2 Plt Count 180 D MPV 8.7 Sodium 138 Potassium 3.8 Chloride 100 Carbon Dioxide 26 Anion Gap 12 BUN 18 D Creatinine 1.2 Creat Clearance w eGFR > 60 Random Glucose 138 H D Calcium 8.1 L Total Bilirubin 1.7 H D AST 24 D ALT 20 D Alkaline Phosphatase 57 Total Protein 6.9 Albumin 3.3 L Urine Color Yellow Urine Appearance Slcloudy Urine pH 6.0 Ur Specific [place] 1.015 Urine Protein Negative Urine Glucose (UA) Negative Urine Ketones Negative Urine Blood Negative Urine Nitrite Negative Urine Bilirubin Negative Urine Urobilinogen 2.0 Ur Leukocyte Esterase Negative RPR Titer 07/28/17 07:00 WBC RBC Hgb Hct MCV MCH MCHC RDW Plt Count MPV Sodium Potassium Chloride Carbon Dioxide Anion Gap BUN Creatinine Creat Clearance w eGFR Random Glucose Calcium Total Bilirubin AST ALT Alkaline Phosphatase Total Protein Albumin Urine Color Urine Appearance Urine pH Ur Specific [place] Urine Protein Urine Glucose (UA) Urine Ketones Urine Blood Urine Nitrite Urine Bilirubin Urine Urobilinogen Ur Leukocyte Esterase RPR Titer Nonreactive aaox3 ambulating no acute distress Assessment: 07/29/17 10:19 withdrawal sx Plan: continue detox increase fluids
[2017-07-29] MEDS: chlordiazePOXIDE 5 MG CAPSULE PO SCH (22:23)
[2017-07-29] MEDS: THIAMINE HCL 100 MG TABLET (FP) PO SCH (22:23)
[2017-07-29] MEDS: traZODone HCL 50 MG TABLET (FP) PO SCH (22:23)
[2017-07-29] MEDS: DOXAZOSIN MESYLATE 4 MG TABLET PO SCH (22:24)
[2017-07-30] MEDS: chlordiazePOXIDE 5 MG CAPSULE PO SCH ×3 (06:19→17:27)
--- NOTE | 2017-07-30 10:07 | PN ---
BHS Progress Note (SOAP) Subjective: sweats feeling better Objective: 07/30/17 10:05 Vital Signs Temperature 98.1 F 07/30/17 06:12 Pulse Rate 64 07/30/17 06:12 Respiratory Rate 16 07/30/17 06:12 Blood Pressure 122/58 07/30/17 06:12 O2 Sat by Pulse Oximetry (%) aaox3 ambulating no acute distress Assessment: 07/30/17 10:05 mild withdrawal sx Plan: continue detox d/c in am
[2017-07-30] MEDS: PRENATAL VITAMINS W/ FOLIC ACID TABLET (FP) PO SCH (10:12)
[2017-07-30] MEDS: LOSARTAN POTASSIUM 50 MG TABLET (FP) PO SCH (10:12)
[2017-07-30] MEDS: PANTOPRAZOLE 40 MG TABLET (FP) PO SCH (10:12)
[2017-07-30] MEDS: CITALOPRAM HYDROBROMIDE 20 MG TABLET (FP) PO SCH (10:12)
[2017-07-30] MEDS: chlordiazePOXIDE HCL 10 MG CAPSULE PO SCH (22:05)
[2017-07-30] MEDS: THIAMINE HCL 100 MG TABLET (FP) PO SCH (22:05)
[2017-07-30] MEDS: traZODone HCL 50 MG TABLET (FP) PO SCH (22:05)
[2017-07-30] MEDS: DOXAZOSIN MESYLATE 4 MG TABLET PO SCH (22:05)
[2017-07-31] MEDS: chlordiazePOXIDE HCL 10 MG CAPSULE PO SCH (05:30)
--- NOTE | 2017-07-31 08:06 | DS ---
[facility] Detox Discharge Summary Admission Date: 07/27/17 Discharge Date: 07/31/17 - History Present History: Alcohol Dependence - Physical Exam Results Vital Signs: Vital Signs Temperature 96.8 F L 07/31/17 06:27 Pulse Rate 66 07/31/17 06:27 Respiratory Rate 16 07/31/17 06:27 Blood Pressure 130/63 07/31/17 06:27 O2 Sat by Pulse Oximetry (%) - Treatment Hospital Course: Detox Protocol Followed, Detoxed Safely, Responded well, Discharged Condition Good, Rehab Referral Accepted - Medication Discharge Medications: Ambulatory Orders Pantoprazole Sodium [Protonix -] 40 mg PO DAILY 05/22/17 Doxazosin Mesylate [Cardura -] 8 mg PO HS #30 mg 05/26/17 Fenofibrate Nanocrystallized [Fenofibrate] 145 mg PO DAILY #30 mg 05/26/17 Losartan Potassium [Cozaar -] 50 mg PO DAILY 07/27/17 Citalopram Hydrobromide [Celexa -] 20 mg PO DAILY #30 tablet 07/28/17 Trazodone HCl [Desyrel -] 50 mg PO HS #30 tablet 07/28/17 - Diagnosis (1) Alcohol dependence with uncomplicated withdrawal Current Visit: Yes Status: Chronic (2) BPH (benign prostatic hyperplasia) Current Visit: Yes Status: Chronic Qualifiers: Lower urinary tract symptom presence: symptoms present Lower urinary tract symptom detail: post-void dribbling Qualified Code(s): N40.1 - Benign prostatic hyperplasia with lower urinary tract symptoms; N39.43 - Post-void dribbling; N39.43 - Post-void dribbling (3) GERD (gastroesophageal reflux disease) Current Visit: Yes Status: Chronic Qualifiers: Esophagitis presence: without esophagitis Qualified Code(s): K21.9 - Gastro -esophageal reflux disease without esophagitis (4) Hyperlipidemia Current Visit: Yes Status: Chronic Qualifiers: Hyperlipidemia type: pure hypercholesterolemia Qualified Code(s): E78.00 - Pure hypercholesterolemia, unspecified (5) Hypertension Current Visit: Yes Status: Chronic Qualifiers: Hypertension type: essential hypertension Qualified Code(s): I10 - Essential (primary) hypertension (6) Depression (emotion) Current Visit: Yes Status: Suspected Qualifiers: Depression Type: dysthymia Qualified Code(s): F34.1 - Dysthymic disorder (7) Depressive disorder Current Visit: No Status: Chronic (8) Alcohol-induced mood disorder Current Visit: No Status: Suspected - AMA Did Patient Leave Against Medical Advice: No
[2017-07-31 09:31] VITALS: BP 148/76; PULSE 99; TEMP 97
[2017-07-31] MEDS: CITALOPRAM HYDROBROMIDE 20 MG TABLET (FP) PO SCH (10:33)
[2017-07-31] MEDS: PRENATAL VITAMINS W/ FOLIC ACID TABLET (FP) PO SCH (10:33)
[2017-07-31] MEDS: LOSARTAN POTASSIUM 50 MG TABLET (FP) PO SCH (10:33)
[2017-07-31] MEDS: PANTOPRAZOLE 40 MG TABLET (FP) PO SCH (10:34)
== END 2017-07-31 09:18 | disposition home or self-care (01) | DRG 897 ==
LOC: YASAS 15:06 → Y6N 16:41
PROVIDERS: ADMIT Internal Medicine; ATTEND Internal Medicine
PROC: HZ2ZZZZ Detoxification Services for Substance Abuse Treatment (ICD-10-PCS; principal; 2017-07-27)
DX: F10.230 Alcohol dependence with withdrawal, uncomplicated (principal); F10.24 Alcohol dependence with alcohol-induced mood disorder; F34.1 Dysthymic disorder; F32.9 Major depressive disorder, single episode, unspecified; I10 Essential (primary) hypertension; E78.5 Hyperlipidemia, unspecified; N40.1 Benign prostatic hyperplasia with lower urinary tract symptoms; N39.43 Post-void dribbling; K21.9 Gastro-esophageal reflux disease without esophagitis; R00.0 Tachycardia, unspecified; Z86.69 Personal history of other diseases of the nervous system and sense organs
CPT/HCPCS: 36415; 80053; 81003; 85027; 86593; 93005; 93010

== ENCOUNTER 2018-09-04 13:18 | Inpatient (IN) | payer OTHER ==
[2018-09-04 14:55] VITALS: BMI 27.0
--- NOTE | 2018-09-04 17:33 | HP ---
CIWA Score Nausea/Vomitin-Int. Nausea w/Dry Heave Muscle Tremors: 4-Moderate,w/Arms Extend Anxiety: 4-Mod. Anxious/Guarded Agitation: 3 Paroxysmal Sweats: No Perspiration Orientation: 0-Oriented Tacttile Disturbances: 0-None Auditory Disturbances: 0-None Visual Disturbances: 0-None Headache: 0-None Present CIWA-Ar Total Score: 15 - Admission Criteria [facility] Guidelines: Admission for Medically Managed Detox: Requires at least one of the followin. CIWA greater than 12 2. Seizures within the past 24 hours 3. Delirium tremens within the past 24 hours 4. Hallucinations within the past 24 hours 5. Acute intervention needed for co occurring medical disorder 6. Acute intervention needed for co occurring psychiatric disorder 7. Severe withdrawal that cannot be handled at a lower level of care (continued vomiting, continued diarrhea, abnormal vital signs) requiring intravenous medication and/or fluids 8. Patient presents the following: CIWA greater than 12, Seizures, delirium tremens or hallucinations in the past 12 hours (HX ALCOHOL WITHDRAWAL SEIZURES.) Admission Criteria Met: Admission criteria met Admission ROS [facility] Chief Complaint: ALCOHOL WITHDRAWAL SX/INTOXICATION; " I WANT TO DETOX" Allergies/Adverse Reactions: Allergies Allergy/AdvReac Type Severity Reaction Status Date / Time No Known Allergies Allergy Verified 09/04/18 15:52 History of Present Illness: PT IS A 68 Y/O MALE WITH A HX OF EXTENDED PERIODS OF INTERMITTENT ALCOHOL BINGES, LAST DRANK TODAY AND SEEKING DETOX TREATMENT. PT REPORTS MULTIPLE CD TREATMENT EPISODES AND LAST TREATMENT AT [facility] . PT REPORTS HX OF HTN, GERD,HYPERLIPIDEMIA AND DEPRESSION. PT REPORTS HE GOES TO AN OUTPATIENT TREATMENT AT [facility] ON [address] [place] [address]. PT REPORTS HE HAS A PCP, DR. HECTOR SHIPMAN AT [facility] ON [address] [place] [address]. Exam Limitations: Intoxication - Ebola screening Have you traveled outside of the country in the last 21 days: No Have you had contact with anyone from an Ebola affected area: No Have you been sick,other than usual withdrawal symptoms: No Do you have a fever: No - Review of Systems Constitutional: Chills, Loss of Appetite, Night Sweats, Changes in sleep (TAKES TRAZODONE HS), Unintentional Wgt. Loss EENT: reports: No Symptoms Reported Respiratory: reports: No Symptoms reported Cardiac: reports: Lightheadedness (WHEN INTOXICATED) GI: reports: Nausea, Poor Appetite, Poor Fluid Intake : reports: Frequency (HX BPH), Urgency (HX BPH) Musculoskeletal: reports: Back Pain Integumentary: reports: No Symptoms Reported Neuro: reports: Seizure (DUE TO ALCOHOL WITHDRAWAL IN 2010-"WHEN I TRIED TO STOP DRINKING ON MY OWN".) Endocrine: reports: No Symptoms Reported Hematology: reports: No Symptoms Reported Psychiatric: reports: Orientated x3, Depressed Other Systems: Reviewed and Negative Patient History - Patient Medical History Hx Anemia: No Hx Asthma: No Hx Chronic Obstructive Pulmonary Disease (COPD): No Hx Cancer: No Hx Cardiac Disorders: No Hx Congestive Heart Failure: No Hx Hypertension: Yes (ON MEDS) Hx Hypercholesterolemia: Yes (ON MEDS) Hx Pacemaker: No HX Cerebrovascular Accident: No Hx Seizures: No Hx Dementia: No Hx Diabetes: No Hx Gastrointestinal Disorders: Yes (acid reflux) Hx Liver Disease: No Hx Genitourinary Disorders: Yes (HX BPH) Hx Sexually Transmitted Disorders: No (DENIES) Hx Renal Disease (ESRD): No Hx Thyroid Disease: No Hx Human Immunodeficiency Virus (HIV): No (negative) Hx Hepatitis C: No (negative) Hx Depression: Yes Hx Suicide Attempt: No (DENIES) Hx Bipolar Disorder: No Hx Schizophrenia: No - Patient Surgical History Past Surgical History: Yes Hx Neurologic Surgery: Yes (Pituitary gland benigntumor removed in 2010) Hx Cataract Extraction: No Hx Cardiac Surgery: No Hx Lung Surgery: No Hx Breast Surgery: No Hx Breast Biopsy: No Hx Abdominal Surgery: No Hx Appendectomy: No Hx Cholecystectomy: No Hx Genitourinary Surgery: No Hx Section: No Hx Orthopedic Surgery: No Anesthesia Reaction: No - PPD History Previous Implant?: Yes Documented Results: Negative w/proof Implanted On Prior R Admission?: Yes Date: 05/24/17 Results: 0 mm PPD to be Administered?: Yes - Reproductive History Patient is a Female of Child Bearing Age (11 -55 yrs old): No - Smoking Cessation Smoking history: Never smoked Have you smoked in the past 12 months: No Hx Chewing Tobacco Use: No Initiated information on smoking cessation: No - Substance & Tx. History Hx Alcohol Use: Yes Substance Use Type: Alcohol Hx Substance Use Treatment: Yes ([facility] ) - Substances Abused Alcohol-vodka Route: Oral Frequency: Daily Amount used: 1 pt. Age of first use: 16 Date of Last Use: 09/04/18 Family Disease History - Family Disease History Family Disease History: Heart Disease: Father (), Brother, Other: Mother () Admission Physical Exam [facility] - Vital Signs Vital Signs: Vital Signs - 24 hr 09/04/18 14:52 Temperature 98.9 F Pulse Rate 97 H Respiratory 18 Rate Blood Pressure 158/96 - Physical General Appearance: Yes: Moderate Distress, Alcohol on Breath, Intoxicated, Anxious HEENTM: Yes: EOMI, Normocephalic, SANTO, Pharynx Normal Respiratory: Yes: Chest Non-Tender, Lungs Clear, Normal Breath Sounds, No Respiratory Distress Neck: Yes: No masses,lesions,Nodules, Supple, Trachea in good position Breast: Yes: Breast Exam Deferred Cardiology: Yes: Regular Rhythm, Regular Rate, S1, S2 Abdominal: Yes: Normal Bowel Sounds, Non Tender, Soft, Protuberent Genitourinary: Yes: Frequency, Uregency (HX BPH) Back: Yes: Within Normal Limits Musculoskeletal: Yes: full range of Motion, Gait Steady Extremities: Yes: Normal Range of Motion, Non-Tender, Tremors Neurological: Yes: mechanical car checker II-XII NML intact, Fully Oriented, Alert, Motor Strength 5/5 Integumentary: Yes: Dry, Warm Lymphatic: Yes: Within Normal Limits - Diagnostic (1) Alcohol dependence with uncomplicated withdrawal Current Visit: Yes Status: Acute (2) BPH (benign prostatic hyperplasia) Current Visit: Yes Status: Chronic Qualifiers: Lower urinary tract symptom detail: urinary frequency (3) GERD (gastroesophageal reflux disease) Current Visit: Yes Status: Chronic Qualifiers: Esophagitis presence: esophagitis presence not specified Qualified Code(s) : K21.9 - Gastro-esophageal reflux disease without esophagitis (4) Hyperlipidemia Current Visit: Yes Status: Chronic Qualifiers: Hyperlipidemia type: pure hypercholesterolemia Qualified Code(s): E78.00 - Pure hypercholesterolemia, unspecified (5) Hypertension Current Visit: Yes Status: Chronic Qualifiers: Hypertension type: essential hypertension Qualified Code(s): I10 - Essential (primary) hypertension Cleared for Admission [facility] - Detox or Rehab [facility] Level of Care: Medically Managed Detox Regimen/Protocol: Librium [facility] Breath Alcohol Content Breath Alcohol Content: 0.336 Urine Drug Screen - Results Drug Screen Negative: No Urine Drug Screen Results: BZO-Benzodiazepines
[2018-09-04] MEDS ORDERED: MAG HYDROX/AL HYDROX/SIMETH 30 ML UNIT-DOSE CUP PO PRN (17:58)
[2018-09-04] MEDS ORDERED: MENTHOL/PHENOL 1 EACH UD MM PRN (17:58)
[2018-09-04] MEDS ORDERED: P-EPHED 60MG/TRIPROLIDI 2.5MG TABLET PO PRN (17:58)
[2018-09-04] MEDS ORDERED: MAGNESIUM CITRATE 300 ML BOTTLE PO PRN (17:58)
[2018-09-04] MEDS ORDERED: LOPERAMIDE HCL 2 MG CAPSULE PO PRN (17:58)
[2018-09-04] MEDS ORDERED: ACETAMINOPHEN 325 MG TABLET (FP) PO PRN (17:58)
[2018-09-04] MEDS ORDERED: IBUPROFEN 400 MG TABLET (FP) PO PRN (17:58)
[2018-09-04] MEDS ORDERED: guaiFENesin/D-METHORPHAN HB 10 ML UNIT-DOSE CUPS PO PRN (17:58)
[2018-09-04] MEDS ORDERED: MAGNESIUM HYDROX 2400MG/30ML ORAL SUSPENSION 30 ML CUP PO PRN (17:58)
[2018-09-04] MEDS: chlordiazePOXIDE HCL 25 MG CAPSULE PO PRN (19:30)
[2018-09-04] MEDS ORDERED: cloNIDine HCL 0.1 MG TABLET PO ONE ×2 (21:00→23:45)
[2018-09-04] MEDS ORDERED: DOXAZOSIN MESYLATE 8 MG TABLET PO SCH (22:00)
[2018-09-04] MEDS ORDERED: MELATONIN 5 MG TABLETS PO PRN (22:00)
[2018-09-04] MEDS: chlordiazePOXIDE HCL 25 MG CAPSULE PO SCH (22:02)
[2018-09-04] MEDS: THIAMINE HCL 100 MG TABLET (FP) PO SCH (22:02)
[2018-09-05] MEDS: chlordiazePOXIDE HCL 25 MG CAPSULE PO SCH ×4 (05:36→22:13)
[2018-09-05] MEDS ORDERED: cloNIDine HCL 0.1 MG TABLET PO PRN (07:32)
[2018-09-05] MEDS: chlordiazePOXIDE HCL 25 MG CAPSULE PO PRN (07:34)
--- NOTE | 2018-09-05 07:47 | PN ---
S Progress Note Note: restarted on hctz and hydralazine home meds noted on external med profile client does not recall last dose taken rx filled 08/25/2018 clonidine prn for residual withdrawal sx's Vital Signs (72 hours) 09/04/18 09/04/18 09/05/18 14:52 21:02 00:30 Temperature 98.9 F 98.5 F Pulse Rate 97 H 100 H Respiratory 18 18 18 Rate Blood Pressure 158/96 179/97 H 09/05/18 09/05/18 09/05/18 03:31 06:23 06:30 Temperature 97.6 F Pulse Rate 72 Respiratory 18 18 18 Rate Blood Pressure 186/83 H 09/05/18 07:16 Temperature 97.5 F L Pulse Rate 73 Respiratory 18 Rate Blood Pressure 177/89 H
[2018-09-05] MEDS ORDERED: PATIENT'S OWN MEDICATION (NON-FORMULARY) (Hydrochlorothiazide [Hydrochlorothiazide] 12.5 M PO SCH (10:00)
[2018-09-05] MEDS: PANTOPRAZOLE 40 MG TABLET (FP) PO SCH (10:24)
[2018-09-05] MEDS: LOSARTAN POTASSIUM 50 MG TABLET (FP) PO SCH (10:24)
[2018-09-05] MEDS: PRENATAL VITAMINS W/ FOLIC ACID TABLET (FP) PO SCH (10:25)
[2018-09-05 11:05] LABS: HEMATOCRIT 39.5 % (35.4-49); HEMOGLOBIN 13.5 GM/dL (11.7-16.9); MCH 27.2 pg (25.7-33.7); MCHC 34.1 g/dl (32.0-35.9); MEAN CELL VOLUME 79.7 fl (80-96); MEAN PLT VOLUME 8.2 fl (7.5-11.1); PLATELET COUNT 207 K/MM3 (134-434); RBC 4.95 M/mm3 (4.00-5.60); RDW 16.3 % (11.9-15.9)
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
[2018-09-05] MEDS: hydrALAZINE HCL 10 MG TABLET PO SCH ×4 (11:17→23:04)
[2018-09-05 11:19] LABS: ALBUMIN 3.6 g/dl (3.4-5.0); ALK PHOS 63 U/L (45-117); ANION GAP 11 MMOL/L (8-16); BILIRUBIN,TOTAL 0.9 mg/dL (0.2-1); BLOOD UREA NITROGEN 19 mg/dL (7-18); CALCIUM 7.6 mg/dL (8.5-10.1); CHLORIDE 103 mmol/L (98-107); CO2 24 mmol/L (21-32); CREATININE 1.3 mg/dL (0.55-1.3); GLUCOSE,RANDOM 126 mg/dL (74-106); POTASSIUM 3.7 mmol/L (3.5-5.1); SGOT/AST 197 U/L (15-37); SGPT/ALT 78 U/L (13-61); SODIUM 138 mmol/L (136-145); TOT PROT 7.4 g/dl (6.4-8.2)
[2018-09-05] MEDS: HYDROCHLOROTHIAZIDE 12.5 MG CAPSULE (FP) PO SCH (13:14)
--- NOTE | 2018-09-05 13:25 | EKG ---
Test Reason : Blood Pressure : / mmHG Vent. Rate : 095 BPM Atrial Rate : 095 BPM P-R Int : 162 ms QRS Dur : 088 ms QT Int : 350 ms P-R-T Axes : 037 -23 027 degrees QTc Int : 439 ms NORMAL SINUS RHYTHM MODERATE VOLTAGE CRITERIA FOR LVH, MAY BE NORMAL VARIANT WHEN COMPARED WITH ECG OF 27-JUL-2017 17:39, NO SIGNIFICANT CHANGE WAS FOUND Confirmed by HARRISON THOMAS MD ([id number]) on 09/05/2018 1:24:51 PM Referred By: Confirmed By:HARRISON THOMAS MD
[2018-09-05] MEDS ORDERED: ONDANSETRON *ODT* 4 MG TABLET SL PRN (13:30)
--- NOTE | 2018-09-05 13:37 | PN ---
S CIWA - CIWA Score Nausea/Vomitin Muscle Tremors: 4-Moderate,w/Arms Extend Anxiety: 2 Agitation: 0-Normal Activity Paroxysmal Sweats: No Perspiration Orientation: 0-Oriented Tacttile Disturbances: 2-Mild Itch/Numbness/Burn Auditory Disturbances: 2-Mild Harshness/Frighten Visual Disturbances: 0-None Headache: 0-None Present CIWA-Ar Total Score: 13 BHS Progress Note (SOAP) Subjective: Body Aches, Nausea, Tremors. Objective: PATIENT A & O X 3, OBSERVED AMBULATING ON UNIT. IN NO ACUTE DISTRESS. 09/05/18 13:32 Vital Signs Temperature 96.7 F L 09/05/18 13:15 Pulse Rate 76 09/05/18 13:15 Respiratory Rate 18 09/05/18 13:15 Blood Pressure 155/76 09/05/18 13:15 O2 Sat by Pulse Oximetry (%) Laboratory Tests 09/05/18 09/05/18 09/05/18 07:50 07:50 07:50 WBC 4.0 RBC 4.95 Hgb 13.5 Hct 39.5 MCV 79.7 L MCH 27.2 MCHC 34.1 RDW 16.3 H Plt Count 207 MPV 8.2 Sodium 138 Potassium 3.7 Chloride 103 Carbon Dioxide 24 Anion Gap 11 BUN 19 H Creatinine 1.3 Creat Clearance w eGFR 54.57 Random Glucose 126 H Calcium 7.6 L Total Bilirubin 0.9 AST 197 H ALT 78 H Alkaline Phosphatase 63 Total Protein 7.4 Albumin 3.6 RPR Titer Nonreactive LABS NOTED. Assessment: 09/05/18 13:34 WITHDRAWAL SYMPTOMS. HYPERTENSION. Plan: CONTINUE DETOX. CLONIDINE, 0.1 MG PO X 1 FOR ELEVATED BLOOD PRESSURE DESPITE TREATMENT. D/C IBUPROFEN AND MAGNESIUM-CONTAINING MEDS. FOR ABNORMAL ADMISSION RENAL LAB VALUES. REPEAT AST ON 09/07/2018 FOR ELEVATED ADMISSION VALUE.
[2018-09-05] MEDS ORDERED: cloNIDine HCL 0.1 MG TABLET PO ONE (13:45)
[2018-09-05] MEDS: traZODone HCL 50 MG TABLET (FP) PO SCH (22:13)
[2018-09-05] MEDS: CYCLOBENZAPRINE HCL 10 MG TABLET (FP) PO PRN (22:13)
[2018-09-05] MEDS: THIAMINE HCL 100 MG TABLET (FP) PO SCH (22:13)
[2018-09-05] MEDS: DOXAZOSIN MESYLATE 4 MG TABLET PO SCH (22:13)
[2018-09-05 23:38] LABS: URINE APPEARANCE CLEAR; URINE BILIRUBIN NEGATIVE (<2.0 mg/dL); URINE COLOR STRAW; URINE GLUCOSE (UA) NEGATIVE (NEGATIVE); URINE KETONE NEGATIVE (NEGATIVE); URINE LEUK ESTERASE NEGATIVE (NEGATIVE); URINE NITRITE NEGATIVE (NEGATIVE); URINE PROTEIN NEGATIVE (NEGATIVE); URINE UROBILINOGEN NEGATIVE mg/dL (0.2-1.0)
[2018-09-06] MEDS: hydrALAZINE HCL 10 MG TABLET PO SCH ×4 (05:30→23:01)
[2018-09-06] MEDS: chlordiazePOXIDE HCL 25 MG CAPSULE PO SCH ×3 (05:30→17:01)
[2018-09-06] MEDS: PANTOPRAZOLE 40 MG TABLET (FP) PO SCH (10:02)
[2018-09-06] MEDS: HYDROCHLOROTHIAZIDE 12.5 MG CAPSULE (FP) PO SCH (10:02)
[2018-09-06] MEDS: LOSARTAN POTASSIUM 50 MG TABLET (FP) PO SCH (10:02)
[2018-09-06] MEDS: PRENATAL VITAMINS W/ FOLIC ACID TABLET (FP) PO SCH (10:02)
--- NOTE | 2018-09-06 10:34 | PN ---
S CIWA - CIWA Score Nausea/Vomitin-Mild Nausea/No Vomiting Muscle Tremors: 3 Anxiety: 2 Agitation: 2 Paroxysmal Sweats: 1-Minimal Palms Moist Orientation: 0-Oriented Tacttile Disturbances: 0-None Auditory Disturbances: 0-None Visual Disturbances: 0-None Headache: 2-Mild CIWA-Ar Total Score: 11 S Progress Note (SOAP) Subjective: tremor sweating longest sobriety 1 + year, relapse during the holidays patient wants to be sober with the support of friends and family patient wants to go to out patient chemical rehab facility "works better for me " Objective: 09/06/18 10:33 Vital Signs Temperature 97.8 F 09/06/18 09:15 Pulse Rate 93 H 09/06/18 09:15 Respiratory Rate 20 09/06/18 09:15 Blood Pressure 118/72 09/06/18 09:15 O2 Sat by Pulse Oximetry (%) Laboratory Last Values WBC 4.0 K/mm3 (4.0-10.0) 09/05/18 07:50 RBC 4.95 M/mm3 (4.00-5.60) 09/05/18 07:50 Hgb 13.5 GM/dL (11.7-16.9) 09/05/18 07:50 Hct 39.5 % (35.4-49) 09/05/18 07:50 MCV 79.7 fl (80-96) L 09/05/18 07:50 MCH 27.2 pg (25.7-33.7) 09/05/18 07:50 MCHC 34.1 g/dl (32.0-35.9) 09/05/18 07:50 RDW 16.3 % (11.9-15.9) H 09/05/18 07:50 Plt Count 207 K/MM3 (134-434) 09/05/18 07:50 MPV 8.2 fl (7.5-11.1) 09/05/18 07:50 Sodium 138 mmol/L (136-145) 09/05/18 07:50 Potassium 3.7 mmol/L (3.5-5.1) 09/05/18 07:50 Chloride 103 mmol/L (98-107) 09/05/18 07:50 Carbon Dioxide 24 mmol/L (21-32) 09/05/18 07:50 Anion Gap 11 MMOL/L (8-16) 09/05/18 07:50 BUN 19 mg/dL (7-18) H 09/05/18 07:50 Creatinine 1.3 mg/dL (0.55-1.3) 09/05/18 07:50 Creat Clearance w eGFR 54.57 (>60) 09/05/18 07:50 Random Glucose 126 mg/dL (74-106) H 09/05/18 07:50 Calcium 7.6 mg/dL (8.5-10.1) L 09/05/18 07:50 Total Bilirubin 0.9 mg/dL (0.2-1) 09/05/18 07:50 AST 197 U/L (15-37) H 09/05/18 07:50 ALT 78 U/L (13-61) H 09/05/18 07:50 Alkaline Phosphatase 63 U/L (45-117) 09/05/18 07:50 Total Protein 7.4 g/dl (6.4-8.2) 09/05/18 07:50 Albumin 3.6 g/dl (3.4-5.0) 09/05/18 07:50 Urine Color Straw 09/05/18 18:01 Urine Appearance Clear 09/05/18 18:01 Urine pH 7.0 (5.0-8.0) 09/05/18 18:01 Ur Specific [place] 1.005 (1.010-1.035) L 09/05/18 18:01 Urine Protein Negative (NEGATIVE) 09/05/18 18:01 Urine Glucose (UA) Negative (NEGATIVE) 09/05/18 18:01 Urine Ketones Negative (NEGATIVE) 09/05/18 18:01 Urine Blood Negative (NEGATIVE) 09/05/18 18:01 Urine Nitrite Negative (NEGATIVE) 09/05/18 18:01 Urine Bilirubin Negative (<2.0 mg/dL) 09/05/18 18:01 Urine Urobilinogen Negative mg/dL (0.2-1.0) 09/05/18 18:01 Ur Leukocyte Esterase Negative (NEGATIVE) 09/05/18 18:01 RPR Titer Nonreactive (NONREACTIVE) 09/05/18 07:50 lab noted low calcium Assessment: 01/27/19 10:35 withdrawal sx hypocalcemia Plan: continue detox oscal supplement bid
[2018-09-06] MEDS: CALCIUM 250MG/VIT-D 125 UNITS 1 COMBO TABLET PO SCH ×2 (11:34→22:28)
[2018-09-06] MEDS: CYCLOBENZAPRINE HCL 10 MG TABLET (FP) PO PRN (17:30)
[2018-09-06] MEDS: traZODone HCL 50 MG TABLET (FP) PO SCH (22:28)
[2018-09-06] MEDS: THIAMINE HCL 100 MG TABLET (FP) PO SCH (22:28)
[2018-09-06] MEDS: chlordiazePOXIDE 5 MG CAPSULE PO SCH (22:28)
[2018-09-06] MEDS: DOXAZOSIN MESYLATE 4 MG TABLET PO SCH (22:56)
[2018-09-07] MEDS: chlordiazePOXIDE 5 MG CAPSULE PO SCH ×3 (05:46→17:29)
[2018-09-07] MEDS: hydrALAZINE HCL 10 MG TABLET PO SCH ×4 (05:46→23:07)
--- NOTE | 2018-09-07 09:36 | PN ---
BHS Progress Note (SOAP) Subjective: feeling better mild tremor less sweating social with peers in day room Objective: 09/07/18 09:35 Vital Signs Temperature 97.4 F L 09/07/18 09:23 Pulse Rate 91 H 09/07/18 09:23 Respiratory Rate 18 09/07/18 09:23 Blood Pressure 100/50 L 09/07/18 09:23 O2 Sat by Pulse Oximetry (%) Laboratory Last Values WBC 4.0 K/mm3 (4.0-10.0) 09/05/18 07:50 RBC 4.95 M/mm3 (4.00-5.60) 09/05/18 07:50 Hgb 13.5 GM/dL (11.7-16.9) 09/05/18 07:50 Hct 39.5 % (35.4-49) 09/05/18 07:50 MCV 79.7 fl (80-96) L 09/05/18 07:50 MCH 27.2 pg (25.7-33.7) 09/05/18 07:50 MCHC 34.1 g/dl (32.0-35.9) 09/05/18 07:50 RDW 16.3 % (11.9-15.9) H 09/05/18 07:50 Plt Count 207 K/MM3 (134-434) 09/05/18 07:50 MPV 8.2 fl (7.5-11.1) 09/05/18 07:50 Sodium 138 mmol/L (136-145) 09/05/18 07:50 Potassium 3.7 mmol/L (3.5-5.1) 09/05/18 07:50 Chloride 103 mmol/L (98-107) 09/05/18 07:50 Carbon Dioxide 24 mmol/L (21-32) 09/05/18 07:50 Anion Gap 11 MMOL/L (8-16) 09/05/18 07:50 BUN 19 mg/dL (7-18) H 09/05/18 07:50 Creatinine 1.3 mg/dL (0.55-1.3) 09/05/18 07:50 Creat Clearance w eGFR 54.57 (>60) 09/05/18 07:50 Random Glucose 126 mg/dL (74-106) H 09/05/18 07:50 Calcium 7.6 mg/dL (8.5-10.1) L 09/05/18 07:50 Total Bilirubin 0.9 mg/dL (0.2-1) 09/05/18 07:50 AST 197 U/L (15-37) H 09/05/18 07:50 ALT 78 U/L (13-61) H 09/05/18 07:50 Alkaline Phosphatase 63 U/L (45-117) 09/05/18 07:50 Total Protein 7.4 g/dl (6.4-8.2) 09/05/18 07:50 Albumin 3.6 g/dl (3.4-5.0) 09/05/18 07:50 Urine Color Straw 09/05/18 18:01 Urine Appearance Clear 09/05/18 18:01 Urine pH 7.0 (5.0-8.0) 09/05/18 18:01 Ur Specific [place] 1.005 (1.010-1.035) L 09/05/18 18:01 Urine Protein Negative (NEGATIVE) 09/05/18 18:01 Urine Glucose (UA) Negative (NEGATIVE) 09/05/18 18:01 Urine Ketones Negative (NEGATIVE) 09/05/18 18:01 Urine Blood Negative (NEGATIVE) 09/05/18 18:01 Urine Nitrite Negative (NEGATIVE) 09/05/18 18:01 Urine Bilirubin Negative (<2.0 mg/dL) 09/05/18 18:01 Urine Urobilinogen Negative mg/dL (0.2-1.0) 09/05/18 18:01 Ur Leukocyte Esterase Negative (NEGATIVE) 09/05/18 18:01 RPR Titer Nonreactive (NONREACTIVE) 09/05/18 07:50 lab noted Assessment: 09/07/18 09:35 mild withdrawal sx Plan: continue detox
[2018-09-07] MEDS: PRENATAL VITAMINS W/ FOLIC ACID TABLET (FP) PO SCH (10:12)
[2018-09-07] MEDS: PANTOPRAZOLE 40 MG TABLET (FP) PO SCH (10:12)
[2018-09-07] MEDS: CALCIUM 250MG/VIT-D 125 UNITS 1 COMBO TABLET PO SCH ×2 (10:12→22:12)
[2018-09-07] MEDS: LOSARTAN POTASSIUM 50 MG TABLET (FP) PO SCH (10:12)
[2018-09-07] MEDS: HYDROCHLOROTHIAZIDE 12.5 MG CAPSULE (FP) PO SCH (10:12)
[2018-09-07] MEDS: THIAMINE HCL 100 MG TABLET (FP) PO SCH (22:12)
[2018-09-07] MEDS: DOXAZOSIN MESYLATE 4 MG TABLET PO SCH (22:12)
[2018-09-07] MEDS: chlordiazePOXIDE HCL 10 MG CAPSULE PO SCH (22:12)
[2018-09-07] MEDS: traZODone HCL 50 MG TABLET (FP) PO SCH (22:15)
[2018-09-08] MEDS: chlordiazePOXIDE HCL 10 MG CAPSULE PO SCH (05:15)
[2018-09-08] MEDS: hydrALAZINE HCL 10 MG TABLET PO SCH (05:16)
[2018-09-08 09:06] VITALS: BP 146/79; PULSE 116; TEMP 97.5
--- NOTE | 2018-09-08 10:05 | DS ---
[facility] Detox Discharge Summary Admission Date: 09/04/18 Discharge Date: 09/08/18 - History Present History: Alcohol Dependence Additional Comments: 68 years old male admitted on 09/04/18 for alcohol withdrawal stabilization completed detox regimen [facility] Pertinent Past History: alcohol withdrawal sx Laboratory Last Values WBC 4.0 K/mm3 (4.0-10.0) 09/05/18 07:50 RBC 4.95 M/mm3 (4.00-5.60) 09/05/18 07:50 Hgb 13.5 GM/dL (11.7-16.9) 09/05/18 07:50 Hct 39.5 % (35.4-49) 09/05/18 07:50 MCV 79.7 fl (80-96) L 09/05/18 07:50 MCH 27.2 pg (25.7-33.7) 09/05/18 07:50 MCHC 34.1 g/dl (32.0-35.9) 09/05/18 07:50 RDW 16.3 % (11.9-15.9) H 09/05/18 07:50 Plt Count 207 K/MM3 (134-434) 09/05/18 07:50 MPV 8.2 fl (7.5-11.1) 09/05/18 07:50 Sodium 138 mmol/L (136-145) 09/05/18 07:50 Potassium 3.7 mmol/L (3.5-5.1) 09/05/18 07:50 Chloride 103 mmol/L (98-107) 09/05/18 07:50 Carbon Dioxide 24 mmol/L (21-32) 09/05/18 07:50 Anion Gap 11 MMOL/L (8-16) 09/05/18 07:50 BUN 19 mg/dL (7-18) H 09/05/18 07:50 Creatinine 1.3 mg/dL (0.55-1.3) 09/05/18 07:50 Creat Clearance w eGFR 54.57 (>60) 09/05/18 07:50 Random Glucose 126 mg/dL (74-106) H 09/05/18 07:50 Calcium 7.6 mg/dL (8.5-10.1) L 09/05/18 07:50 Total Bilirubin 0.9 mg/dL (0.2-1) 09/05/18 07:50 AST 92 U/L (15-37) H 09/07/18 07:00 ALT 78 U/L (13-61) H 09/05/18 07:50 Alkaline Phosphatase 63 U/L (45-117) 09/05/18 07:50 Total Protein 7.4 g/dl (6.4-8.2) 09/05/18 07:50 Albumin 3.6 g/dl (3.4-5.0) 09/05/18 07:50 Urine Color Straw 09/05/18 18:01 Urine Appearance Clear 09/05/18 18:01 Urine pH 7.0 (5.0-8.0) 09/05/18 18:01 Ur Specific [place] 1.005 (1.010-1.035) L 09/05/18 18:01 Urine Protein Negative (NEGATIVE) 09/05/18 18:01 Urine Glucose (UA) Negative (NEGATIVE) 09/05/18 18:01 Urine Ketones Negative (NEGATIVE) 09/05/18 18:01 Urine Blood Negative (NEGATIVE) 09/05/18 18:01 Urine Nitrite Negative (NEGATIVE) 09/05/18 18:01 Urine Bilirubin Negative (<2.0 mg/dL) 09/05/18 18:01 Urine Urobilinogen Negative mg/dL (0.2-1.0) 09/05/18 18:01 Ur Leukocyte Esterase Negative (NEGATIVE) 09/05/18 18:01 RPR Titer Nonreactive (NONREACTIVE) 09/05/18 07:50 lab noted calcium rich food - Physical Exam Results Vital Signs: Vital Signs Temperature 97.5 F L 09/08/18 09:05 Pulse Rate 116 H 09/08/18 09:05 Respiratory Rate 18 09/08/18 09:05 Blood Pressure 146/79 09/08/18 09:05 O2 Sat by Pulse Oximetry (%) Pertinent Admission Physical Exam Findings: copy of medication list as well as copy of lab to patient informed follow up with primary care provider in the community - Treatment Hospital Course: Detox Protocol Followed, Detoxed Safely, Responded well, Discharged Condition Good, Rehab Referral Accepted Patient has Accepted a Rehab Referral to: [facility] / [facility] - Medication Discharge Medications: Ambulatory Orders Pantoprazole Sodium [Protonix -] 40 mg PO DAILY 05/22/17 Doxazosin Mesylate [Cardura -] 8 mg PO HS #30 mg 05/26/17 Fenofibrate Nanocrystallized [Fenofibrate] 145 mg PO DAILY #30 mg 05/26/17 Citalopram Hydrobromide [Celexa -] 20 mg PO DAILY #30 tablet 07/28/17 traZODone HCL [Desyrel -] 50 mg PO HS #30 tablet 07/28/17 Hydralazine HCl 10 mg PO Q6H 09/05/18 Calcium 250Mg/Vit-D 125 Units [Oscal 250 mg+D -] 1 combo PO BID 09/06/18 Hydrochlorothiazide 12.5 mg PO DAILY #14 tablet 09/07/18 Losartan Potassium [Cozaar -] 50 mg PO DAILY #14 tablet 09/07/18 - Diagnosis (1) Alcohol dependence with uncomplicated withdrawal Current Visit: Yes Status: Acute (2) Hypocalcemia Current Visit: Yes Status: Chronic (3) BPH (benign prostatic hyperplasia) Current Visit: Yes Status: Chronic Qualifiers: Lower urinary tract symptom detail: urinary frequency (4) GERD (gastroesophageal reflux disease) Current Visit: Yes Status: Chronic Qualifiers: Esophagitis presence: esophagitis presence not specified Qualified Code(s) : K21.9 - Gastro-esophageal reflux disease without esophagitis (5) Hyperlipidemia Current Visit: Yes Status: Chronic Qualifiers: Hyperlipidemia type: pure hypercholesterolemia Qualified Code(s): E78.00 - Pure hypercholesterolemia, unspecified (6) Hypertension Current Visit: Yes Status: Chronic Qualifiers: Hypertension type: essential hypertension Qualified Code(s): I10 - Essential (primary) hypertension - AMA Did Patient Leave Against Medical Advice: No
== END 2018-09-08 10:43 | disposition home or self-care (01) | DRG 897 ==
LOC: YASAS 13:18 → Y3N 18:22
PROVIDERS: ADMIT Neuromusculoskeletal Medicine & OMM; ATTEND Neuromusculoskeletal Medicine & OMM
PROC: HZ2ZZZZ Detoxification Services for Substance Abuse Treatment (ICD-10-PCS; principal; 2018-09-08)
DX: F10.230 Alcohol dependence with withdrawal, uncomplicated (principal); F10.24 Alcohol dependence with alcohol-induced mood disorder; F32.9 Major depressive disorder, single episode, unspecified; G47.00 Insomnia, unspecified; I10 Essential (primary) hypertension; E83.51 Hypocalcemia; E78.00 Pure hypercholesterolemia, unspecified; N40.0 Benign prostatic hyperplasia without lower urinary tract symptoms
CPT/HCPCS: 36415; 80053; 81003; 84450; 85027; 86593; 93005; 93010; J0735

== ENCOUNTER 2019-08-13 11:07 | Inpatient (IN) | payer OTHER ==
[2019-08-13 11:57] VITALS: BMI 28.0
--- NOTE | 2019-08-13 12:55 | HP ---
CIWA Score Nausea/Vomitin Muscle Tremors: 3 Anxiety: 3 Agitation: 3 Paroxysmal Sweats: 1-Minimal Palms Moist Orientation: 0-Oriented Tacttile Disturbances: 1-Very Mild Itch/Numbness Auditory Disturbances: 0-None Visual Disturbances: 0-None Headache: 2-Mild CIWA-Ar Total Score: 15 - Admission Criteria OASAS Guidelines: Admission for Medically Managed Detox: Requires at least one of the followin. CIWA greater than 12 2. Seizures within the past 24 hours 3. Delirium tremens within the past 24 hours 4. Hallucinations within the past 24 hours 5. Acute intervention needed for co occurring medical disorder 6. Acute intervention needed for co occurring psychiatric disorder 7. Severe withdrawal that cannot be handled at a lower level of care (continued vomiting, continued diarrhea, abnormal vital signs) requiring intravenous medication and/or fluids 8. 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 Cardiovascular: Yes: HTN, Hyperlipdemia Psych: Yes: Depression - Smoking History Smoking history: Never smoked Have you smoked in the past 12 months: No - Alcohol/Substance Use Hx Alcohol Use: Yes - Social History Usual Living Arrangement: Yes: Alone Occupation: retired Admission [facility] Chief Complaint: i need help to stop drinking alcohol Allergies/Adverse Reactions: Allergies Allergy/AdvReac Type Severity Reaction Status Date / Time No Known Allergies Allergy Verified 08/13/19 11:45 History of Present Illness: this 69 years old male with alcohol dependence,seeking help,last admission 09/04 to 09/08/18 alcohol related seizure syncope hypertension depression Exam Limitations: No Limitations - Ebola screening Have you traveled outside of the country in the last 21 days: No Have you had contact with anyone from an Ebola affected area: No - Review of Systems Constitutional: Loss of Appetite, Malaise, Night Sweats, Changes in sleep EENT: reports: No Symptoms Reported Respiratory: reports: No Symptoms reported Cardiac: reports: No Symptoms Reported GI: reports: No Symptoms Reported : reports: No Symptoms Reported Musculoskeletal: reports: Back Pain, Muscle Pain Integumentary: reports: Dryness Neuro: reports: Headache, Tremors Endocrine: reports: No Symptoms Reported Hematology: reports: No Symptoms Reported Psychiatric: reports: Judgement Intact, Mood/Affect Appropiate, Orientated x3, Depressed Other Systems: Reviewed and Negative Patient History - Patient Medical History Hx Anemia: No Hx Asthma: No Hx Chronic Obstructive Pulmonary Disease (COPD): No Hx Cancer: No Hx Cardiac Disorders: No Hx Congestive Heart Failure: No Hx Hypertension: Yes (ON MEDS) Hx Hypercholesterolemia: Yes (ON MEDS) Hx Pacemaker: No HX Cerebrovascular Accident: No Hx Seizures: No Hx Dementia: No Hx Diabetes: No Hx Gastrointestinal Disorders: Yes (acid reflux) Hx Liver Disease: No Hx Genitourinary Disorders: Yes (HX BPH) Hx Sexually Transmitted Disorders: No (DENIES) Hx Renal Disease (ESRD): No Hx Thyroid Disease: No Hx Human Immunodeficiency Virus (HIV): No (never been tested ,do not want to be tested) Hx Hepatitis C: No (negative) Hx Depression: Yes Hx Suicide Attempt: No (DENIES) Hx Bipolar Disorder: No Hx Schizophrenia: No Other Medical History: no suicidal,no homicidal - Patient Surgical History Past Surgical History: Yes Hx Neurologic Surgery: Yes (Pituitary gland benigntumor removed in 2010) Hx Cataract Extraction: No Hx Cardiac Surgery: No Hx Lung Surgery: No Hx Breast Surgery: No Hx Breast Biopsy: No Hx Abdominal Surgery: No Hx Appendectomy: No Hx Cholecystectomy: No Hx Genitourinary Surgery: No Hx Section: No Hx Orthopedic Surgery: No Anesthesia Reaction: No - PPD History Previous Implant?: Yes Documented Results: Negative w/proof Implanted On Prior [facility] Admission?: Yes Date: 09/06/18 Results: 0 mm PPD to be Administered?: No - Smoking Cessation Smoking history: Never smoked Have you smoked in the past 12 months: No Hx Chewing Tobacco Use: No - Substance & Tx. History Hx Alcohol Use: Yes Hx Substance Use: No Substance Use Type: Alcohol Hx Substance Use Treatment: Yes ([facility] 09/04/18 to 09/08/18) - Substances abused Alcohol Substance route: Oral Amount used: VODKA 1 PINT A DAY Age of first use: 16 Date of last use: 08/13/19 Admission Physical Exam BHS - Vital Signs Vital Signs: Vital Signs - 24 hr 01/03/20 11:42 Temperature 97.6 F Pulse Rate 95 H Respiratory 16 Rate Blood Pressure 166/81 - Physical General Appearance: Yes: Moderate Distress, Tremorous, Irritable, Sweating, Anxious HEENTM: Yes: Normal ENT Inspection, SANTO, Pharynx Normal Respiratory: Yes: Lungs Clear, Normal Breath Sounds, No Respiratory Distress Neck: Yes: Within Normal Limits, Supple, Trachea in good position Breast: Yes: Within Normal Limits Cardiology: Yes: Within Normal Limits, Regular Rhythm, Regular Rate, S1, S2 Abdominal: Yes: Within Normal Limits, Normal Bowel Sounds, Non Tender, Flat, Soft Genitourinary: Yes: Within Normal Limits Back: Yes: Muscle Spasm Musculoskeletal: Yes: Back pain, Muscle Pain Extremities: Yes: Tremors 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, Fully Oriented, Alert, Motor Strength 5/5 Integumentary: Yes: Dry Lymphatic: Yes: Within Normal Limits - Diagnostic (1) Alcohol dependence with uncomplicated withdrawal Current Visit: Yes Status: Acute (2) Alcohol intoxication Current Visit: Yes Status: Acute (3) Alcohol related seizure Current Visit: Yes Status: Acute (4) Syncope Current Visit: Yes Status: Acute (5) BPH (benign prostatic hyperplasia) Current Visit: No Status: Chronic Qualifiers: Lower urinary tract symptom detail: urinary frequency (6) GERD (gastroesophageal reflux disease) Current Visit: No Status: Chronic Qualifiers: Esophagitis presence: esophagitis presence not specified Qualified Code(s) : K21.9 - Gastro-esophageal reflux disease without esophagitis (7) Hyperlipidemia Current Visit: No Status: Chronic Qualifiers: Hyperlipidemia type: pure hypercholesterolemia Qualified Code(s): E78.00 - Pure hypercholesterolemia, unspecified (8) Hypertension Current Visit: No Status: Chronic Qualifiers: Hypertension type: essential hypertension Qualified Code(s): I10 - Essential (primary) hypertension (9) Depression (emotion) Current Visit: No Status: Suspected Qualifiers: Depression Type: dysthymia Qualified Code(s): F34.1 - Dysthymic disorder Cleared for Admission S - Detox or Rehab [facility] Level of Care: Medically Managed Detox Regimen/Protocol: Librium Breathalyzer - Breathalyzer Breathalyzer: 0.227 Urine Drug Screen - Test Device Lot number: [id number] Expiration date: 05/10/21 - Control Is test valid?: Yes - Results Drug screen NEGATIVE: No Urine drug screen results: BZO-Benzodiazepines Inpatient Rehab Admission - Rehab Decision to Admit Inpatient rehab admission?: No
[2019-08-13] MEDS ORDERED: MAG HYDROX/AL HYDROX/SIMETH 30 ML UNIT-DOSE CUP PO PRN (13:11)
[2019-08-13] MEDS ORDERED: MAGNESIUM CITRATE 300 ML BOTTLE PO PRN (13:11)
[2019-08-13] MEDS ORDERED: MENTHOL/PHENOL 1 EACH UD MM PRN (13:11)
[2019-08-13] MEDS ORDERED: IBUPROFEN 400 MG TABLET (FP) PO PRN (13:11)
[2019-08-13] MEDS ORDERED: METHOCARBAMOL 500 MG TABLET PO PRN (13:11)
[2019-08-13] MEDS ORDERED: BISMUTH SUBSALICYLATE 262 MG/15 ML BTL PO PRN (13:11)
[2019-08-13] MEDS ORDERED: MELATONIN 5 MG TABLETS PO PRN (13:11)
[2019-08-13] MEDS ORDERED: MAGNESIUM HYDROX 2400MG/30ML ORAL SUSPENSION 30 ML CUP PO PRN (13:11)
[2019-08-13] MEDS ORDERED: ACETAMINOPHEN 325 MG TABLET (FP) PO PRN ×2 (13:11)
[2019-08-13] MEDS ORDERED: hydrOXYzine PAMOATE 25 MG CAPSULE (FP) PO PRN (13:11)
[2019-08-13] MEDS: LOSARTAN POTASSIUM 50 MG TABLET (FP) PO SCH (15:13)
[2019-08-13] MEDS: HYDROCHLOROTHIAZIDE 12.5 MG CAPSULE (FP) PO SCH (15:13)
[2019-08-13] MEDS: chlordiazePOXIDE HCL 25 MG CAPSULE PO PRN (15:14)
[2019-08-13] MEDS: chlordiazePOXIDE HCL 25 MG CAPSULE PO SCH ×2 (17:22→22:15)
[2019-08-13 17:33] LABS: HEMATOCRIT 46.4 % (35.4-49); HEMOGLOBIN 14.9 GM/dL (11.7-16.9); MCHC 32.1 g/dl (32.0-35.9); MEAN PLT VOLUME 8.3 fl (7.5-11.1); PLATELET COUNT 363 K/MM3 (134-434); RBC 5.72 M/mm3 (4.00-5.60); RDW 16.4 % (11.9-15.9); WHITE BLOOD COUNT 4.4 K/mm3 (4.0-10.0)
[2019-08-13 17:44] LABS: ALBUMIN 4.2 g/dl (3.4-5.0); BILIRUBIN,TOTAL 0.3 mg/dL (0.2-1); BLOOD UREA NITROGEN 18.9 mg/dL (7-18); CALCIUM 8.5 mg/dL (8.5-10.1); CREATININE 1.5 mg/dL (0.55-1.3); POTASSIUM 3.8 mmol/L (3.5-5.1); TOT PROT 8.6 g/dl (6.4-8.2)
[2019-08-13] MEDS: THIAMINE HCL 100 MG TABLET (FP) PO SCH (22:15)
[2019-08-13] MEDS: CALCIUM 250MG/VIT-D 125 UNITS 1 COMBO TABLET PO SCH (22:15)
[2019-08-13] MEDS: DOXAZOSIN MESYLATE 4 MG TABLET PO SCH (22:15)
[2019-08-14] MEDS: chlordiazePOXIDE HCL 25 MG CAPSULE PO SCH ×4 (05:57→22:49)
[2019-08-14] MEDS: LOSARTAN POTASSIUM 50 MG TABLET (FP) PO SCH (10:32)
[2019-08-14] MEDS: PRENATAL VITAMINS W/ FOLIC ACID TABLET (FP) PO SCH (10:32)
[2019-08-14] MEDS: HYDROCHLOROTHIAZIDE 12.5 MG CAPSULE (FP) PO SCH (10:32)
[2019-08-14] MEDS: FAMOTIDINE 20 MG TABLET PO SCH (10:32)
[2019-08-14] MEDS: CALCIUM 250MG/VIT-D 125 UNITS 1 COMBO TABLET PO SCH ×2 (10:33→22:49)
[2019-08-14] MEDS: FENOFIBRIC ACID 135 MG CAP PO SCH (10:33)
[2019-08-14 10:35] LABS: URINE APPEARANCE CLEAR; URINE BILIRUBIN NEGATIVE (NEGATIVE); URINE COLOR YELLOW; URINE GLUCOSE (UA) NEGATIVE (NEGATIVE); URINE KETONE NEGATIVE (NEGATIVE); URINE LEUK ESTERASE NEGATIVE (NEGATIVE); URINE NITRITE NEGATIVE (NEGATIVE); URINE PROTEIN TRACE (NEGATIVE)
--- NOTE | 2019-08-14 12:18 | PN ---
S CIWA - CIWA Score Nausea/Vomitin Muscle Tremors: 4-Moderate,w/Arms Extend Anxiety: 3 Agitation: 3 Paroxysmal Sweats: 2 Orientation: 0-Oriented Tacttile Disturbances: 0-None Auditory Disturbances: 0-None Visual Disturbances: 0-None Headache: 1-Very Mild CIWA-Ar Total Score: 15 BHS Progress Note (SOAP) Subjective: pt states he still feels shaky- admitted yesterday for alcohol detox O: Vital Signs - 24 hr 08/13/19 08/13/19 08/13/19 14:46 17:24 21:46 Temperature 98.1 F 97.9 F 98.7 F Pulse Rate 85 90 92 H Respiratory 20 18 18 Rate Blood Pressure 160/120 H 167/91 130/72 08/14/19 08/14/19 08/14/19 00:30 03:39 07:20 Temperature 98.1 F Pulse Rate 84 Respiratory 18 18 18 Rate Blood Pressure 138/79 08/14/19 09:57 Temperature 97.1 F L Pulse Rate 79 Respiratory 16 Rate Blood Pressure 135/70 Laboratory Tests 08/13/19 08/13/19 08/14/19 13:05 13:05 07:20 WBC 4.4 RBC 5.72 H Hgb 14.9 Hct 46.4 D MCV 81.0 MCH 26.0 MCHC 32.1 RDW 16.4 H Plt Count 363 D MPV 8.3 Sodium 140 Potassium 3.8 Chloride 107 Carbon Dioxide 24 Anion Gap 9 BUN 18.9 H Creatinine 1.5 H Est GFR (CKD-EPI)AfAm 53.52 Est GFR (CKD-EPI)NonAf 46.17 POC Glucometer Random Glucose 115 H Calcium 8.5 Total Bilirubin 0.3 AST 109 H ALT 53 Alkaline Phosphatase 60 Total Protein 8.6 H Albumin 4.2 Urine Color Yellow Urine Appearance Clear Urine pH 7.0 Ur Specific [place] 1.024 Urine Protein Trace Urine Glucose (UA) Negative Urine Ketones Negative Urine Blood Negative Urine Nitrite Negative Urine Bilirubin Negative Urine Urobilinogen 1.0 Ur Leukocyte Esterase Negative 08/14/19 07:39 WBC RBC Hgb Hct MCV MCH MCHC RDW Plt Count MPV Sodium Potassium Chloride Carbon Dioxide Anion Gap BUN Creatinine Est GFR (CKD-EPI)AfAm Est GFR (CKD-EPI)NonAf POC Glucometer 115 Random Glucose Calcium Total Bilirubin AST ALT Alkaline Phosphatase Total Protein Albumin Urine Color Urine Appearance Urine pH Ur Specific [place] Urine Protein Urine Glucose (UA) Urine Ketones Urine Blood Urine Nitrite Urine Bilirubin Urine Urobilinogen Ur Leukocyte Esterase decreased GFR a/p AUD- continue alcohol detox protocol prn meds as needed
[2019-08-14] MEDS: chlordiazePOXIDE HCL 25 MG CAPSULE PO PRN (12:36)
--- NOTE | 2019-08-14 13:25 | PN ---
S CIWA - CIWA Score Nausea/Vomitin-Mild Nausea/No Vomiting Muscle Tremors: 3 Anxiety: 3 Agitation: 3 Paroxysmal Sweats: 2 Orientation: 0-Oriented Tacttile Disturbances: 0-None Auditory Disturbances: 0-None Visual Disturbances: 0-None Headache: 0-None Present CIWA-Ar Total Score: 12 BHS Progress Note (SOAP) Subjective: pt states he still feels tremulous- here for alcohol detox O: Vital Signs - 24 hr 08/13/19 08/13/19 08/13/19 14:46 17:24 21:46 Temperature 98.1 F 97.9 F 98.7 F Pulse Rate 85 90 92 H Respiratory 20 18 18 Rate Blood Pressure 160/120 H 167/91 130/72 08/14/19 08/14/19 08/14/19 00:30 03:39 07:20 Temperature 98.1 F Pulse Rate 84 Respiratory 18 18 18 Rate Blood Pressure 138/79 08/14/19 09:57 Temperature 97.1 F L Pulse Rate 79 Respiratory 16 Rate Blood Pressure 135/70 Laboratory Tests 08/13/19 08/13/19 08/14/19 13:05 13:05 07:20 WBC 4.4 RBC 5.72 H Hgb 14.9 Hct 46.4 D MCV 81.0 MCH 26.0 MCHC 32.1 RDW 16.4 H Plt Count 363 D MPV 8.3 Sodium 140 Potassium 3.8 Chloride 107 Carbon Dioxide 24 Anion Gap 9 BUN 18.9 H Creatinine 1.5 H Est GFR (CKD-EPI)AfAm 53.52 Est GFR (CKD-EPI)NonAf 46.17 POC Glucometer Random Glucose 115 H Calcium 8.5 Total Bilirubin 0.3 AST 109 H ALT 53 Alkaline Phosphatase 60 Total Protein 8.6 H Albumin 4.2 Urine Color Yellow Urine Appearance Clear Urine pH 7.0 Ur Specific [place] 1.024 Urine Protein Trace Urine Glucose (UA) Negative Urine Ketones Negative Urine Blood Negative Urine Nitrite Negative Urine Bilirubin Negative Urine Urobilinogen 1.0 Ur Leukocyte Esterase Negative 08/14/19 07:39 WBC RBC Hgb Hct MCV MCH MCHC RDW Plt Count MPV Sodium Potassium Chloride Carbon Dioxide Anion Gap BUN Creatinine Est GFR (CKD-EPI)AfAm Est GFR (CKD-EPI)NonAf POC Glucometer 115 Random Glucose Calcium Total Bilirubin AST ALT Alkaline Phosphatase Total Protein Albumin Urine Color Urine Appearance Urine pH Ur Specific [place] Urine Protein Urine Glucose (UA) Urine Ketones Urine Blood Urine Nitrite Urine Bilirubin Urine Urobilinogen Ur Leukocyte Esterase a/p AUD- continue alcohol detox prn meds for symptom management low GFR- hydration
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
[2019-08-14] MEDS: traZODone HCL 50 MG TABLET (FP) PO SCH (22:40)
[2019-08-14] MEDS: DOXAZOSIN MESYLATE 4 MG TABLET PO SCH (22:49)
[2019-08-14] MEDS: THIAMINE HCL 100 MG TABLET (FP) PO SCH (22:49)
--- NOTE | 2019-08-14 23:25 | EKG ---
Test Reason : Blood Pressure : / mmHG Vent. Rate : 075 BPM Atrial Rate : 075 BPM P-R Int : 188 ms QRS Dur : 092 ms QT Int : 394 ms P-R-T Axes : 043 -17 036 degrees QTc Int : 439 ms NORMAL SINUS RHYTHM MINIMAL VOLTAGE CRITERIA FOR LVH, MAY BE NORMAL VARIANT SEPTAL INFARCT , AGE UNDETERMINED ABNORMAL ECG WHEN COMPARED WITH ECG OF 04-SEP-2018 18:44, NO SIGNIFICANT CHANGE WAS FOUND Confirmed by LINA GLEZ, MAGALYS ([id number]) on 08/14/2019 11:25:08 PM Referred By: Confirmed By:MAGALYS MILLS MD
[2019-08-15] MEDS: chlordiazePOXIDE HCL 25 MG CAPSULE PO SCH ×4 (05:40→22:13)
[2019-08-15] MEDS: HYDROCHLOROTHIAZIDE 12.5 MG CAPSULE (FP) PO SCH (10:21)
[2019-08-15] MEDS: FAMOTIDINE 20 MG TABLET PO SCH (10:21)
[2019-08-15] MEDS: LOSARTAN POTASSIUM 50 MG TABLET (FP) PO SCH (10:21)
[2019-08-15] MEDS: PRENATAL VITAMINS W/ FOLIC ACID TABLET (FP) PO SCH (10:21)
[2019-08-15] MEDS: CALCIUM 250MG/VIT-D 125 UNITS 1 COMBO TABLET PO SCH ×2 (10:21→22:13)
[2019-08-15] MEDS: FENOFIBRIC ACID 135 MG CAP PO SCH (10:22)
--- NOTE | 2019-08-15 15:12 | PN ---
S CIWA - CIWA Score Nausea/Vomitin-Mild Nausea/No Vomiting Muscle Tremors: 2 Anxiety: 3 Agitation: 2 Paroxysmal Sweats: 2 Orientation: 0-Oriented Tacttile Disturbances: 0-None Auditory Disturbances: 0-None Visual Disturbances: 0-None Headache: 0-None Present CIWA-Ar Total Score: 10 S Progress Note (SOAP) Subjective: Tremor Objective: 08/15/19 15:10 Last Vital Signs Temp Pulse Resp BP Pulse Ox 98.2 F 104 H 16 131/72 08/15/19 13:58 08/15/19 13:58 08/15/19 13:58 08/15/19 13:58 Laboratory Tests 08/13/19 08/13/19 08/13/19 13:05 13:05 13:05 WBC 4.4 RBC 5.72 H Hgb 14.9 Hct 46.4 D MCV 81.0 MCH 26.0 MCHC 32.1 RDW 16.4 H Plt Count 363 D MPV 8.3 Sodium 140 Potassium 3.8 Chloride 107 Carbon Dioxide 24 Anion Gap 9 BUN 18.9 H Creatinine 1.5 H Est GFR (CKD-EPI)AfAm 53.52 Est GFR (CKD-EPI)NonAf 46.17 POC Glucometer Random Glucose 115 H Calcium 8.5 Total Bilirubin 0.3 AST 109 H ALT 53 Alkaline Phosphatase 60 Total Protein 8.6 H Albumin 4.2 Urine Color Urine Appearance Urine pH Ur Specific [place] Urine Protein Urine Glucose (UA) Urine Ketones Urine Blood Urine Nitrite Urine Bilirubin Urine Urobilinogen Ur Leukocyte Esterase RPR Titer Nonreactive 08/14/19 08/14/19 08/15/19 07:20 07:39 05:38 WBC RBC Hgb Hct MCV MCH MCHC RDW Plt Count MPV Sodium Potassium Chloride Carbon Dioxide Anion Gap BUN Creatinine Est GFR (CKD-EPI)AfAm Est GFR (CKD-EPI)NonAf POC Glucometer 115 154 Random Glucose Calcium Total Bilirubin AST ALT Alkaline Phosphatase Total Protein Albumin Urine Color Yellow Urine Appearance Clear Urine pH 7.0 Ur Specific [place] 1.024 Urine Protein Trace Urine Glucose (UA) Negative Urine Ketones Negative Urine Blood Negative Urine Nitrite Negative Urine Bilirubin Negative Urine Urobilinogen 1.0 Ur Leukocyte Esterase Negative RPR Titer Labs reviewed: UMM noted, hyperglycemia Assessment: 08/15/19 15:11 Withdrawal sxs Noted with UMM and hyperglycemia Plan: Continue detox UMM: encouraged PO water intake, repeat BMP Hyperglycemia: denies DM, repeat fasting glucose, check A1c
[2019-08-15] MEDS: DOXAZOSIN MESYLATE 4 MG TABLET PO SCH (22:13)
[2019-08-15] MEDS: THIAMINE HCL 100 MG TABLET (FP) PO SCH (22:13)
[2019-08-15] MEDS: traZODone HCL 50 MG TABLET (FP) PO SCH (22:13)
[2019-08-16] MEDS ORDERED: chlordiazePOXIDE HCL 10 MG CAPSULE PO PRN
[2019-08-16] MEDS: chlordiazePOXIDE HCL 10 MG CAPSULE PO SCH ×4 (06:15→22:07)
[2019-08-16 10:06] LABS: BLOOD UREA NITROGEN 23.6 mg/dL (7-18); CALCIUM 9.6 mg/dL (8.5-10.1); CREATININE 1.4 mg/dL (0.55-1.3); POTASSIUM 3.7 mmol/L (3.5-5.1)
--- NOTE | 2019-08-16 10:47 | PN ---
S CIWA - CIWA Score Nausea/Vomitin-Mild Nausea/No Vomiting Muscle Tremors: 1-None Visible, but [place] Anxiety: 1-Mildly Anxious Agitation: 1-Slight > Activity Paroxysmal Sweats: No Perspiration Orientation: 0-Oriented Tacttile Disturbances: 1-Very Mild Itch/Numbness Auditory Disturbances: 0-None Visual Disturbances: 1-Very Mild Sensitivity Headache: 2-Mild CIWA-Ar Total Score: 8 S Progress Note (SOAP) Subjective: alert,irritable,anxious,interrupted sleep,painin the body Objective: 08/16/19 10:45 Vital Signs Temperature 96.5 F L 08/16/19 09:17 Pulse Rate 108 H 08/16/19 09:17 Respiratory Rate 18 08/16/19 09:17 Blood Pressure 137/72 08/16/19 09:17 O2 Sat by Pulse Oximetry (%) Assessment: 08/16/19 10:47 withdrawal symptom Plan: continue detox librium regimen,diet modification advise,bgm bid
[2019-08-16] MEDS: CALCIUM 250MG/VIT-D 125 UNITS 1 COMBO TABLET PO SCH ×2 (10:48→22:07)
[2019-08-16] MEDS: FENOFIBRIC ACID 135 MG CAP PO SCH (10:48)
[2019-08-16] MEDS: LOSARTAN POTASSIUM 50 MG TABLET (FP) PO SCH (10:48)
[2019-08-16] MEDS: PRENATAL VITAMINS W/ FOLIC ACID TABLET (FP) PO SCH (10:48)
[2019-08-16] MEDS: HYDROCHLOROTHIAZIDE 12.5 MG CAPSULE (FP) PO SCH (10:48)
[2019-08-16] MEDS: FAMOTIDINE 20 MG TABLET PO SCH (10:48)
[2019-08-16] MEDS: DOXAZOSIN MESYLATE 4 MG TABLET PO SCH (22:07)
[2019-08-16] MEDS: THIAMINE HCL 100 MG TABLET (FP) PO SCH (22:07)
[2019-08-16] MEDS: traZODone HCL 50 MG TABLET (FP) PO SCH (22:09)
[2019-08-17] MEDS: chlordiazePOXIDE HCL 10 MG CAPSULE PO SCH ×2 (05:54→17:57)
--- NOTE | 2019-08-17 08:54 | PN ---
S CIWA - CIWA Score Nausea/Vomitin-No Nausea/No Vomiting Muscle Tremors: 1-None Visible, but [place] Anxiety: 1-Mildly Anxious Agitation: 1-Slight > Activity Paroxysmal Sweats: No Perspiration Orientation: 0-Oriented Tacttile Disturbances: 0-None Auditory Disturbances: 0-None Visual Disturbances: 0-None Headache: 0-None Present CIWA-Ar Total Score: 3 BHS Progress Note (SOAP) Subjective: pt states he is feeling fine- going home tomorrow- O: Vital Signs - 24 hr 08/16/19 08/16/19 08/16/19 09:17 17:18 21:10 Temperature 96.5 F L 97.9 F 97.7 F Pulse Rate 108 H 89 81 Respiratory 18 16 18 Rate Blood Pressure 137/72 131/67 143/78 08/17/19 08/17/19 08/17/19 00:30 03:30 06:19 Temperature 97.3 F L Pulse Rate 101 H Respiratory 18 18 18 Rate Blood Pressure 123/66 Laboratory Tests 08/13/19 08/13/19 08/13/19 13:05 13:05 13:05 WBC 4.4 RBC 5.72 H Hgb 14.9 Hct 46.4 D MCV 81.0 MCH 26.0 MCHC 32.1 RDW 16.4 H Plt Count 363 D MPV 8.3 Sodium 140 Potassium 3.8 Chloride 107 Carbon Dioxide 24 Anion Gap 9 BUN 18.9 H Creatinine 1.5 H Est GFR (CKD-EPI)AfAm 53.52 Est GFR (CKD-EPI)NonAf 46.17 POC Glucometer Random Glucose 115 H Hemoglobin A1c % Calcium 8.5 Total Bilirubin 0.3 AST 109 H ALT 53 Alkaline Phosphatase 60 Total Protein 8.6 H Albumin 4.2 Urine Color Urine Appearance Urine pH Ur Specific [place] Urine Protein Urine Glucose (UA) Urine Ketones Urine Blood Urine Nitrite Urine Bilirubin Urine Urobilinogen Ur Leukocyte Esterase RPR Titer Nonreactive 08/14/19 08/14/19 08/15/19 07:20 07:39 05:38 WBC RBC Hgb Hct MCV MCH MCHC RDW Plt Count MPV Sodium Potassium Chloride Carbon Dioxide Anion Gap BUN Creatinine Est GFR (CKD-EPI)AfAm Est GFR (CKD-EPI)NonAf POC Glucometer 115 154 Random Glucose Hemoglobin A1c % Calcium Total Bilirubin AST ALT Alkaline Phosphatase Total Protein Albumin Urine Color Yellow Urine Appearance Clear Urine pH 7.0 Ur Specific [place] 1.024 Urine Protein Trace Urine Glucose (UA) Negative Urine Ketones Negative Urine Blood Negative Urine Nitrite Negative Urine Bilirubin Negative Urine Urobilinogen 1.0 Ur Leukocyte Esterase Negative RPR Titer 08/16/19 08/16/19 08/16/19 08:15 08:15 16:34 WBC RBC Hgb Hct MCV MCH MCHC RDW Plt Count MPV Sodium 134 L Potassium 3.7 Chloride 101 Carbon Dioxide 21 Anion Gap 11 BUN 23.6 H Creatinine 1.4 H Est GFR (CKD-EPI)AfAm 58.17 Est GFR (CKD-EPI)NonAf 50.19 POC Glucometer 133 Random Glucose 136 H Hemoglobin A1c % 6.2 Calcium 9.6 Total Bilirubin AST ALT Alkaline Phosphatase Total Protein Albumin Urine Color Urine Appearance Urine pH Ur Specific [place] Urine Protein Urine Glucose (UA) Urine Ketones Urine Blood Urine Nitrite Urine Bilirubin Urine Urobilinogen Ur Leukocyte Esterase RPR Titer 08/17/19 05:53 WBC RBC Hgb Hct MCV MCH MCHC RDW Plt Count MPV Sodium Potassium Chloride Carbon Dioxide Anion Gap BUN Creatinine Est GFR (CKD-EPI)AfAm Est GFR (CKD-EPI)NonAf POC Glucometer 126 Random Glucose Hemoglobin A1c % Calcium Total Bilirubin AST ALT Alkaline Phosphatase Total Protein Albumin Urine Color Urine Appearance Urine pH Ur Specific [place] Urine Protein Urine Glucose (UA) Urine Ketones Urine Blood Urine Nitrite Urine Bilirubin Urine Urobilinogen Ur Leukocyte Esterase RPR Titer a/p: AUD- detox protocol- pt to be discharged tomorrow d/w counselor [employer] 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
[2019-08-17] MEDS: FAMOTIDINE 20 MG TABLET PO SCH (10:07)
[2019-08-17] MEDS: PRENATAL VITAMINS W/ FOLIC ACID TABLET (FP) PO SCH (10:07)
[2019-08-17] MEDS: HYDROCHLOROTHIAZIDE 12.5 MG CAPSULE (FP) PO SCH (10:07)
[2019-08-17] MEDS: FENOFIBRIC ACID 135 MG CAP PO SCH (10:07)
[2019-08-17] MEDS: CALCIUM 250MG/VIT-D 125 UNITS 1 COMBO TABLET PO SCH ×2 (10:07→21:57)
[2019-08-17] MEDS: LOSARTAN POTASSIUM 50 MG TABLET (FP) PO SCH (10:45)
[2019-08-17] MEDS: THIAMINE HCL 100 MG TABLET (FP) PO SCH (21:57)
[2019-08-17] MEDS: traZODone HCL 50 MG TABLET (FP) PO SCH (21:57)
[2019-08-17] MEDS: DOXAZOSIN MESYLATE 4 MG TABLET PO SCH (21:57)
[2019-08-18] MEDS ORDERED: chlordiazePOXIDE HCL 10 MG CAPSULE PO ONE (05:00)
--- NOTE | 2019-08-18 08:34 | DS ---
[facility] Detox Discharge Summary Admission Date: 08/13/19 Discharge Date: 08/18/19 - History Present History: Alcohol Dependence - Physical Exam Results Vital Signs: Vital Signs Temperature 97.2 F L 08/18/19 06:29 Pulse Rate 74 08/18/19 06:29 Respiratory Rate 18 08/18/19 06:29 Blood Pressure 140/85 08/18/19 06:29 O2 Sat by Pulse Oximetry (%) Pertinent Admission Physical Exam Findings: Vital Signs Temperature 97.2 F L 08/18/19 06:29 Pulse Rate 74 08/18/19 06:29 Respiratory Rate 18 08/18/19 06:29 Blood Pressure 140/85 08/18/19 06:29 O2 Sat by Pulse Oximetry (%) Laboratory Tests 08/13/19 08/13/19 08/13/19 13:05 13:05 13:05 WBC 4.4 RBC 5.72 H Hgb 14.9 Hct 46.4 D MCV 81.0 MCH 26.0 MCHC 32.1 RDW 16.4 H Plt Count 363 D MPV 8.3 Sodium 140 Potassium 3.8 Chloride 107 Carbon Dioxide 24 Anion Gap 9 BUN 18.9 H Creatinine 1.5 H Est GFR (CKD-EPI)AfAm 53.52 Est GFR (CKD-EPI)NonAf 46.17 POC Glucometer Random Glucose 115 H Hemoglobin A1c % Calcium 8.5 Total Bilirubin 0.3 AST 109 H ALT 53 Alkaline Phosphatase 60 Total Protein 8.6 H Albumin 4.2 Urine Color Urine Appearance Urine pH Ur Specific [place] Urine Protein Urine Glucose (UA) Urine Ketones Urine Blood Urine Nitrite Urine Bilirubin Urine Urobilinogen Ur Leukocyte Esterase RPR Titer Nonreactive 08/14/19 08/14/19 08/15/19 07:20 07:39 05:38 WBC RBC Hgb Hct MCV MCH MCHC RDW Plt Count MPV Sodium Potassium Chloride Carbon Dioxide Anion Gap BUN Creatinine Est GFR (CKD-EPI)AfAm Est GFR (CKD-EPI)NonAf POC Glucometer 115 154 Random Glucose Hemoglobin A1c % Calcium Total Bilirubin AST ALT Alkaline Phosphatase Total Protein Albumin Urine Color Yellow Urine Appearance Clear Urine pH 7.0 Ur Specific [place] 1.024 Urine Protein Trace Urine Glucose (UA) Negative Urine Ketones Negative Urine Blood Negative Urine Nitrite Negative Urine Bilirubin Negative Urine Urobilinogen 1.0 Ur Leukocyte Esterase Negative RPR Titer 08/16/19 08/16/1908/16/20 08:15 08:15 16:34 WBC RBC Hgb Hct MCV MCH MCHC RDW Plt Count MPV Sodium 134 L Potassium 3.7 Chloride 101 Carbon Dioxide 21 Anion Gap 11 BUN 23.6 H Creatinine 1.4 H Est GFR (CKD-EPI)AfAm 58.17 Est GFR (CKD-EPI)NonAf 50.19 POC Glucometer 133 Random Glucose 136 H Hemoglobin A1c % 6.2 Calcium 9.6 Total Bilirubin AST ALT Alkaline Phosphatase Total Protein Albumin Urine Color Urine Appearance Urine pH Ur Specific [place] Urine Protein Urine Glucose (UA) Urine Ketones Urine Blood Urine Nitrite Urine Bilirubin Urine Urobilinogen Ur Leukocyte Esterase RPR Titer 08/17/19 08/17/19 08/18/19 05:53 16:34 05:52 WBC RBC Hgb Hct MCV MCH MCHC RDW Plt Count MPV Sodium Potassium Chloride Carbon Dioxide Anion Gap BUN Creatinine Est GFR (CKD-EPI)AfAm Est GFR (CKD-EPI)NonAf POC Glucometer 126 142 144 Random Glucose Hemoglobin A1c % Calcium Total Bilirubin AST ALT Alkaline Phosphatase Total Protein Albumin Urine Color Urine Appearance Urine pH Ur Specific [place] Urine Protein Urine Glucose (UA) Urine Ketones Urine Blood Urine Nitrite Urine Bilirubin Urine Urobilinogen Ur Leukocyte Esterase RPR Titer aaox3 ambulating no acute distress - Treatment Hospital Course: Detox Protocol Followed, Detoxed Safely, Responded well, Discharged Condition Good, Rehab Referral Accepted Patient has Accepted a Rehab Referral to: pt referred to [facility] inpatient rehab - Medication Discharge Medications: Ambulatory Orders Pantoprazole Sodium [Protonix -] 40 mg PO DAILY 05/22/17 Doxazosin Mesylate [Cardura -] 8 mg PO HS #30 mg 05/26/17 Fenofibrate Nanocrystallized [Fenofibrate] 145 mg PO DAILY #30 mg 05/26/17 Citalopram Hydrobromide [Celexa -] 20 mg PO DAILY #30 tablet 07/28/17 traZODone HCL [Desyrel -] 50 mg PO HS #30 tablet 07/28/17 Hydralazine HCl 10 mg PO Q6H 09/05/18 Calcium 250Mg/Vit-D 125 Units [Oscal 250 mg+D -] 1 combo PO BID 09/06/18 Hydrochlorothiazide 12.5 mg PO DAILY #14 tablet 09/07/18 Losartan Potassium [Cozaar -] 50 mg PO DAILY #14 tablet 09/07/18 - Diagnosis (1) Alcohol dependence with uncomplicated withdrawal Current Visit: Yes Status: Chronic (2) Alcohol related seizure Current Visit: Yes Status: Acute (3) Syncope Current Visit: Yes Status: Acute (4) History of depression Current Visit: Yes Status: Chronic (5) Insomnia Current Visit: Yes Status: Chronic (6) Non-compliance Current Visit: Yes Status: Chronic (7) Alcohol-induced mood disorder Current Visit: Yes Status: Suspected (8) Alcohol dependence with uncomplicated withdrawal Current Visit: Yes Status: Chronic (9) BPH (benign prostatic hyperplasia) Current Visit: No Status: Chronic Qualifiers: Lower urinary tract symptom detail: urinary frequency (10) Depressive disorder Current Visit: No Status: Chronic (11) GERD (gastroesophageal reflux disease) Current Visit: No Status: Chronic Qualifiers: Esophagitis presence: esophagitis presence not specified Qualified Code(s) : K21.9 - Gastro-esophageal reflux disease without esophagitis (12) Hyperlipidemia Current Visit: No Status: Chronic Qualifiers: Hyperlipidemia type: pure hypercholesterolemia Qualified Code(s): E78.00 - Pure hypercholesterolemia, unspecified (13) Hypertension Current Visit: No Status: Chronic Qualifiers: Hypertension type: essential hypertension Qualified Code(s): I10 - Essential (primary) hypertension (14) Hypocalcemia Current Visit: No Status: Chronic (15) Depression (emotion) Current Visit: No Status: Suspected Qualifiers: Depression Type: dysthymia Qualified Code(s): F34.1 - Dysthymic disorder - AMA Did Patient Leave Against Medical Advice: No
[2019-08-18 09:12] VITALS: BP 144/76; PULSE 98; TEMP 96.6
[2019-08-18] MEDS: LOSARTAN POTASSIUM 50 MG TABLET (FP) PO SCH (10:11)
[2019-08-18] MEDS: PRENATAL VITAMINS W/ FOLIC ACID TABLET (FP) PO SCH (10:11)
[2019-08-18] MEDS: FENOFIBRIC ACID 135 MG CAP PO SCH (10:11)
[2019-08-18] MEDS: HYDROCHLOROTHIAZIDE 12.5 MG CAPSULE (FP) PO SCH (10:11)
[2019-08-18] MEDS: FAMOTIDINE 20 MG TABLET PO SCH (10:11)
[2019-08-18] MEDS: CALCIUM 250MG/VIT-D 125 UNITS 1 COMBO TABLET PO SCH (10:11)
== END 2019-08-18 13:15 | disposition other institution (70) | DRG 897 ==
LOC: YASAS 11:07 → Y6N 13:19
PROVIDERS: ADMIT Allergy & Immunology; ATTEND Allergy & Immunology
PROC: HZ2ZZZZ Detoxification Services for Substance Abuse Treatment (ICD-10-PCS; principal; 2019-08-13)
DX: F10.230 Alcohol dependence with withdrawal, uncomplicated (principal); G40.509 Epileptic seizures related to external causes, not intractable, without status epilepticus; N17.9 Acute kidney failure, unspecified; F10.24 Alcohol dependence with alcohol-induced mood disorder; F34.1 Dysthymic disorder; F32.9 Major depressive disorder, single episode, unspecified; E83.51 Hypocalcemia; E78.00 Pure hypercholesterolemia, unspecified; I10 Essential (primary) hypertension; K21.9 Gastro-esophageal reflux disease without esophagitis; N40.1 Benign prostatic hyperplasia with lower urinary tract symptoms; R35.0 Frequency of micturition; G47.00 Insomnia, unspecified; R73.9 Hyperglycemia, unspecified; Z91.19 Patient's noncompliance with other medical treatment and regimen
CPT/HCPCS: 36415; 80048; 80053; 81003; 82962; 83036; 85027; 86593; 93005; 93010

== ENCOUNTER 2019-09-14 09:45 | Inpatient (IN) | payer OTHER ==
[2019-09-14 10:28] VITALS: BMI 22.7
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
[2019-09-14] MEDS ORDERED: MAG HYDROX/AL HYDROX/SIMETH 30 ML UNIT-DOSE CUP PO PRN (11:28)
[2019-09-14] MEDS ORDERED: hydrOXYzine PAMOATE 25 MG CAPSULE (FP) PO PRN (11:28)
[2019-09-14] MEDS ORDERED: METHOCARBAMOL 500 MG TABLET PO PRN (11:28)
[2019-09-14] MEDS ORDERED: MAGNESIUM HYDROX 2400MG/30ML ORAL SUSPENSION 30 ML CUP PO PRN (11:28)
[2019-09-14] MEDS ORDERED: IBUPROFEN 400 MG TABLET (FP) PO PRN (11:28)
[2019-09-14] MEDS ORDERED: BISMUTH SUBSALICYLATE 262 MG/15 ML BTL PO PRN (11:28)
[2019-09-14] MEDS ORDERED: MAGNESIUM CITRATE 300 ML BOTTLE PO PRN (11:28)
[2019-09-14] MEDS ORDERED: chlordiazePOXIDE HCL 25 MG CAPSULE PO PRN (11:28)
[2019-09-14] MEDS ORDERED: MENTHOL/PHENOL 1 EACH UD MM PRN (11:28)
[2019-09-14] MEDS ORDERED: ACETAMINOPHEN 325 MG TABLET (FP) PO PRN ×2 (11:28)
[2019-09-14] MEDS: FLUCONAZOLE 100 MG TABLET (UD) PO SCH (12:31)
[2019-09-14] MEDS: CALCIUM 250MG/VIT-D 125 UNITS 1 COMBO TABLET PO SCH ×2 (12:31→22:05)
--- NOTE | 2019-09-14 14:10 | EKG ---
Test Reason : Blood Pressure : / mmHG Vent. Rate : 068 BPM Atrial Rate : 068 BPM P-R Int : 180 ms QRS Dur : 090 ms QT Int : 382 ms P-R-T Axes : 053 -25 008 degrees QTc Int : 406 ms NORMAL SINUS RHYTHM MODERATE VOLTAGE CRITERIA FOR LVH, MAY BE NORMAL VARIANT BORDERLINE ECG WHEN COMPARED WITH ECG OF 13-AUG-2019 13:38, NO SIGNIFICANT CHANGE WAS FOUND Confirmed by MD Wai, Venkata ([id number]) on 09/14/2019 2:09:49 PM Referred By: Confirmed By:Venkata Carreno MD
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
[2019-09-14 15:53] LABS: HEMATOCRIT 46.7 % (35.4-49); HEMOGLOBIN 15.4 GM/dL (11.7-16.9); MCH 26.6 pg (25.7-33.7); MCHC 32.9 g/dl (32.0-35.9); MEAN CELL VOLUME 80.9 fl (80-96); MEAN PLT VOLUME 8.5 fl (7.5-11.1); PLATELET COUNT 266 K/MM3 (134-434); RBC 5.77 M/mm3 (4.00-5.60); RDW 16.6 % (11.9-15.9); WHITE BLOOD COUNT 3.3 K/mm3 (4.0-10.0)
[2019-09-14 16:00] LABS: BILIRUBIN,TOTAL 0.4 mg/dL (0.2-1); BLOOD UREA NITROGEN 34.3 mg/dL (7-18); CALCIUM 8.5 mg/dL (8.5-10.1); POTASSIUM 4.1 mmol/L (3.5-5.1); TOT PROT 8.3 g/dl (6.4-8.2)
[2019-09-14] MEDS: chlordiazePOXIDE HCL 25 MG CAPSULE PO SCH ×2 (17:19→22:05)
[2019-09-14] MEDS: THIAMINE HCL 100 MG TABLET (FP) PO SCH (22:05)
[2019-09-14] MEDS: DOXAZOSIN MESYLATE 4 MG TABLET PO SCH (22:05)
[2019-09-14] MEDS: traZODone HCL 50 MG TABLET (FP) PO SCH (22:06)
[2019-09-15] MEDS: chlordiazePOXIDE HCL 25 MG CAPSULE PO SCH ×4 (05:34→22:09)
[2019-09-15] MEDS ORDERED: ONDANSETRON *ODT* 4 MG TABLET SL ONE (09:13)
--- NOTE | 2019-09-15 09:16 | PN ---
S CIWA - CIWA Score Nausea/Vomitin Muscle Tremors: 4-Moderate,w/Arms Extend Anxiety: 3 Agitation: 0-Normal Activity Paroxysmal Sweats: 2 Orientation: 0-Oriented Tacttile Disturbances: 0-None Auditory Disturbances: 0-None Visual Disturbances: 1-Very Mild Sensitivity Headache: 1-Very Mild CIWA-Ar Total Score: 14 S Progress Note (SOAP) Subjective: 69 years old male admitted on 09/14/19 for alcohol withdrawal sx management treating with librium detox regiment reports vomiting x 1 after breakfast undigested food zofran 4mg sl x 1 Objective: 09/15/19 09:16 Vital Signs Temperature 98.3 F 09/15/19 08:43 Pulse Rate 108 H 09/15/19 08:43 Respiratory Rate 18 09/15/19 08:43 Blood Pressure 166/86 09/15/19 08:43 O2 Sat by Pulse Oximetry (%) Laboratory Last Values WBC 3.3 K/mm3 (4.0-10.0) L 09/14/19 12:05 RBC 5.77 M/mm3 (4.00-5.60) H 09/14/19 12:05 Hgb 15.4 GM/dL (11.7-16.9) 09/14/19 12:05 Hct 46.7 % (35.4-49) 09/14/19 12:05 MCV 80.9 fl (80-96) 09/14/19 12:05 MCH 26.6 pg (25.7-33.7) 09/14/19 12:05 MCHC 32.9 g/dl (32.0-35.9) 09/14/19 12:05 RDW 16.6 % (11.9-15.9) H 09/14/19 12:05 Plt Count 266 K/MM3 (134-434) D 09/14/19 12:05 MPV 8.5 fl (7.5-11.1) 09/14/19 12:05 Sodium 134 mmol/L (136-145) L 09/14/19 12:05 Potassium 4.1 mmol/L (3.5-5.1) 09/14/19 12:05 Chloride 97 mmol/L (98-107) L 09/14/19 12:05 Carbon Dioxide 25 mmol/L (21-32) 09/14/19 12:05 Anion Gap 12 MMOL/L (8-16) 09/14/19 12:05 BUN 34.3 mg/dL (7-18) H 09/14/19 12:05 Creatinine 2.0 mg/dL (0.55-1.3) H 09/14/19 12:05 Est GFR (CKD-EPI)AfAm 37.79 09/14/19 12:05 Est GFR (CKD-EPI)NonAf 32.61 09/14/19 12:05 Random Glucose 142 mg/dL (74-106) H 09/14/19 12:05 Calcium 8.5 mg/dL (8.5-10.1) 09/14/19 12:05 Total Bilirubin 0.4 mg/dL (0.2-1) 09/14/19 12:05 AST 30 U/L (15-37) 09/14/19 12:05 ALT 21 U/L (13-61) 09/14/19 12:05 Alkaline Phosphatase 48 U/L (45-117) 09/14/19 12:05 Total Protein 8.3 g/dl (6.4-8.2) H 09/14/19 12:05 Albumin 4.0 g/dl (3.4-5.0) 09/14/19 12:05 RPR Titer Nonreactive (NONREACTIVE) 09/14/19 12:05 lab noted bun + creatinine elevation 09/15/19 09:21 patient has history of bun elevatoin since Aug 2018 and creatinine elevation since Aug 2019 repeat bun and creatinine Assessment: 09/15/19 09:21 alcohol withdrawal Plan: librium regiment
[2019-09-15] MEDS ORDERED: FENOFIBRIC ACID 135 MG CAP PO SCH ×2 (10:00→12:25)
[2019-09-15] MEDS: PRENATAL VITAMINS W/ FOLIC ACID TABLET (FP) PO SCH (10:07)
[2019-09-15] MEDS: FLUCONAZOLE 100 MG TABLET (UD) PO SCH (10:07)
[2019-09-15] MEDS: CALCIUM 250MG/VIT-D 125 UNITS 1 COMBO TABLET PO SCH ×2 (10:07→22:10)
[2019-09-15] MEDS: LOSARTAN POTASSIUM 50 MG TABLET (FP) PO SCH (10:08)
[2019-09-15] MEDS: PANTOPRAZOLE 40 MG TABLET PO SCH (10:08)
[2019-09-15] MEDS: HYDROCHLOROTHIAZIDE 12.5 MG CAPSULE (FP) PO SCH (10:08)
[2019-09-15] MEDS ORDERED: CITALOPRAM HYDROBROMIDE 20 MG TABLET PO SCH (11:45)
[2019-09-15] MEDS: hydrALAZINE HCL 10 MG TABLET PO SCH ×3 (12:13→23:07)
[2019-09-15] MEDS: traZODone HCL 50 MG TABLET (FP) PO SCH (22:09)
[2019-09-15] MEDS: DOXAZOSIN MESYLATE 4 MG TABLET PO SCH (22:09)
[2019-09-15] MEDS: THIAMINE HCL 100 MG TABLET (FP) PO SCH (22:09)
[2019-09-16] MEDS: hydrALAZINE HCL 10 MG TABLET PO SCH ×4 (06:07→23:31)
[2019-09-16] MEDS: chlordiazePOXIDE HCL 25 MG CAPSULE PO SCH ×4 (06:07→22:19)
--- NOTE | 2019-09-16 09:47 | PN ---
[facility] CIWA - CIWA Score Nausea/Vomitin-No Nausea/No Vomiting Muscle Tremors: 3 Anxiety: 3 Agitation: 1-Slight > Activity Paroxysmal Sweats: 2 Orientation: 0-Oriented Tacttile Disturbances: 0-None Auditory Disturbances: 0-None Visual Disturbances: 1-Very Mild Sensitivity Headache: 1-Very Mild CIWA-Ar Total Score: 11 S Progress Note (SOAP) Subjective: 69 years old male admitted on 09/14/19 for alcohol withdrawal sx management treating with librium detox regiment feeling ok today slept better last night encourage the patient returning to primary care provider for fenofabric dosage adjustment and renal function evaluation Objective: 09/16/19 09:48 Vital Signs Temperature 97.4 F L 09/16/19 06:31 Pulse Rate 98 H 09/16/19 06:31 Respiratory Rate 18 09/16/19 06:31 Blood Pressure 127/71 09/16/19 06:31 O2 Sat by Pulse Oximetry (%) Laboratory Last Values WBC 3.3 K/mm3 (4.0-10.0) L 09/14/19 12:05 RBC 5.77 M/mm3 (4.00-5.60) H 09/14/19 12:05 Hgb 15.4 GM/dL (11.7-16.9) 09/14/19 12:05 Hct 46.7 % (35.4-49) 09/14/19 12:05 MCV 80.9 fl (80-96) 09/14/19 12:05 MCH 26.6 pg (25.7-33.7) 09/14/19 12:05 MCHC 32.9 g/dl (32.0-35.9) 09/14/19 12:05 RDW 16.6 % (11.9-15.9) H 09/14/19 12:05 Plt Count 266 K/MM3 (134-434) D 09/14/19 12:05 MPV 8.5 fl (7.5-11.1) 09/14/19 12:05 Sodium 134 mmol/L (136-145) L 09/14/19 12:05 Potassium 4.1 mmol/L (3.5-5.1) 09/14/19 12:05 Chloride 97 mmol/L (98-107) L 09/14/19 12:05 Carbon Dioxide 25 mmol/L (21-32) 09/14/19 12:05 Anion Gap 12 MMOL/L (8-16) 09/14/19 12:05 BUN 34.3 mg/dL (7-18) H 09/14/19 12:05 Creatinine 2.0 mg/dL (0.55-1.3) H 09/14/19 12:05 Est GFR (CKD-EPI)AfAm 37.79 09/14/19 12:05 Est GFR (CKD-EPI)NonAf 32.61 09/14/19 12:05 Random Glucose 142 mg/dL (74-106) H 09/14/19 12:05 Calcium 8.5 mg/dL (8.5-10.1) 09/14/19 12:05 Total Bilirubin 0.4 mg/dL (0.2-1) 09/14/19 12:05 AST 30 U/L (15-37) 09/14/19 12:05 ALT 21 U/L (13-61) 09/14/19 12:05 Alkaline Phosphatase 48 U/L (45-117) 09/14/19 12:05 Total Protein 8.3 g/dl (6.4-8.2) H 09/14/19 12:05 Albumin 4.0 g/dl (3.4-5.0) 09/14/19 12:05 RPR Titer Nonreactive (NONREACTIVE) 09/14/19 12:05 lab noted bun and creatinine repeat pending Assessment: 09/16/19 09:48 alcohol withdrawal Plan: libirum regiment
[2019-09-16 10:04] LABS: BLOOD UREA NITROGEN 21.6 mg/dL (7-18); CREATININE 1.7 mg/dL (0.55-1.3)
[2019-09-16] MEDS: LOSARTAN POTASSIUM 50 MG TABLET (FP) PO SCH (10:17)
[2019-09-16] MEDS: HYDROCHLOROTHIAZIDE 12.5 MG CAPSULE (FP) PO SCH (10:17)
[2019-09-16] MEDS: PANTOPRAZOLE 40 MG TABLET PO SCH (10:17)
[2019-09-16] MEDS: PRENATAL VITAMINS W/ FOLIC ACID TABLET (FP) PO SCH (10:17)
[2019-09-16] MEDS: FLUCONAZOLE 100 MG TABLET (UD) PO SCH (10:18)
[2019-09-16] MEDS: FENOFIBRIC ACID 45 MG CAP PO SCH (10:18)
[2019-09-16] MEDS: CALCIUM 250MG/VIT-D 125 UNITS 1 COMBO TABLET PO SCH ×2 (10:18→22:19)
[2019-09-16] MEDS: THIAMINE HCL 100 MG TABLET (FP) PO SCH (22:19)
[2019-09-16] MEDS: DOXAZOSIN MESYLATE 4 MG TABLET PO SCH (22:19)
--- NOTE | 2019-09-16 23:04 | PN ---
[facility] Progress Note Note: Psychiatry Attending's note : Nurse called. Requested order for trazodone. Chart reviewed. Medication is confirmed. Trazodone 25 mg po hs. Re-ordered.
[2019-09-16] MEDS: traZODone HCL 50 MG TABLET (FP) PO SCH (23:13)
[2019-09-17] MEDS ORDERED: chlordiazePOXIDE HCL 10 MG CAPSULE PO PRN
[2019-09-17] MEDS: hydrALAZINE HCL 10 MG TABLET PO SCH ×4 (05:20→23:14)
[2019-09-17] MEDS: chlordiazePOXIDE HCL 10 MG CAPSULE PO SCH ×4 (05:20→22:22)
[2019-09-17] MEDS: PRENATAL VITAMINS W/ FOLIC ACID TABLET (FP) PO SCH (10:10)
[2019-09-17] MEDS: CALCIUM 250MG/VIT-D 125 UNITS 1 COMBO TABLET PO SCH ×2 (10:11→22:22)
[2019-09-17] MEDS: LOSARTAN POTASSIUM 50 MG TABLET (FP) PO SCH (10:11)
[2019-09-17] MEDS: PANTOPRAZOLE 40 MG TABLET PO SCH (10:11)
[2019-09-17] MEDS: HYDROCHLOROTHIAZIDE 12.5 MG CAPSULE (FP) PO SCH (10:11)
[2019-09-17] MEDS: FENOFIBRIC ACID 45 MG CAP PO SCH (10:14)
[2019-09-17] MEDS: FLUCONAZOLE 100 MG TABLET (UD) PO SCH (12:15)
--- NOTE | 2019-09-17 13:50 | PN ---
[facility] CIWA - CIWA Score Muscle Tremors: None Anxiety: 1-Mildly Anxious Agitation: 0-Normal Activity Paroxysmal Sweats: No Perspiration Orientation: 2-Disoriented Date<2 days Tacttile Disturbances: 0-None Auditory Disturbances: 0-None Visual Disturbances: 0-None Headache: 0-None Present S Progress Note (SOAP) Subjective: No complaints, asking if he is getting medication for thrush/tongue Objective: 09/17/19 13:49 Laboratory Tests 09/14/19 09/14/19 09/14/19 12:05 12:05 12:05 WBC 3.3 L RBC 5.77 H Hgb 15.4 Hct 46.7 MCV 80.9 MCH 26.6 MCHC 32.9 RDW 16.6 H Plt Count 266 D MPV 8.5 Sodium 134 L Potassium 4.1 Chloride 97 L Carbon Dioxide 25 Anion Gap 12 BUN 34.3 H Creatinine 2.0 H Est GFR (CKD-EPI)AfAm 37.79 Est GFR (CKD-EPI)NonAf 32.61 Random Glucose 142 H Calcium 8.5 Total Bilirubin 0.4 AST 30 ALT 21 Alkaline Phosphatase 48 Total Protein 8.3 H Albumin 4.0 RPR Titer Nonreactive 09/16/19 08:00 WBC RBC Hgb Hct MCV MCH MCHC RDW Plt Count MPV Sodium Potassium Chloride Carbon Dioxide Anion Gap BUN 21.6 H Creatinine 1.7 H Est GFR (CKD-EPI)AfAm 46.00 Est GFR (CKD-EPI)NonAf 39.69 Random Glucose Calcium Total Bilirubin AST ALT Alkaline Phosphatase Total Protein Albumin RPR Titer Vital Signs (72 hours) 09/14/19 09/14/19 09/15/19 16:30 20:32 00:31 Temperature 98.2 F 98.6 F Pulse Rate 92 H 94 H Respiratory 18 18 18 Rate Blood Pressure 129/75 150/86 09/15/19 09/15/19 09/15/19 03:34 06:01 08:43 Temperature 98.9 F 98.3 F Pulse Rate 107 H 108 H Respiratory 18 18 18 Rate Blood Pressure 142/82 166/86 09/15/19 09/15/19 09/15/19 12:09 12:57 16:41 Temperature 98.4 F 98.4 F Pulse Rate 118 H 113 H 114 H Respiratory 18 18 18 Rate Blood Pressure 152/83 145/92 144/80 09/15/19 09/16/19 09/16/19 20:56 00:35 03:45 Temperature 98.7 F Pulse Rate 110 H Respiratory 18 18 18 Rate Blood Pressure 158/85 09/16/19 09/16/19 09/16/19 06:31 08:56 12:41 Temperature 97.4 F L 97.3 F L 98.8 F Pulse Rate 98 H 108 H 97 H Respiratory 18 17 18 Rate Blood Pressure 127/71 113/72 125/70 09/16/19 09/16/19 09/17/19 16:36 21:28 00:30 Temperature 97.5 F L 98.4 F Pulse Rate 93 H 96 H Respiratory 18 18 18 Rate Blood Pressure 129/70 134/78 09/17/19 09/17/19 09/17/19 06:30 06:33 08:53 Temperature 97.0 F L 97.1 F L Pulse Rate 90 88 Respiratory 18 18 18 Rate Blood Pressure 107/69 124/69 PE 09/17/19 13:53 Gnl: WDWN, in no distress MS: awake, alert, normal language function HEENT: significant impovement in thrush on tongue Motor: moves all limbs symmetrically Gait: nl 09/17/19 13:54 Assessment: 09/17/19 13:54 1. Alcohol use disorder 09/17/19 13:54 2. oral lester on diflucan Plan: 1. continue alcohol withdrawal protocol 2. continue diflucan
--- NOTE | 2019-09-17 18:26 | PN ---
[facility] Progress Note Note: Psychiatry Attending's note (follow-up) : Chart reviewed. Patient is active and sociable. Doing well. Ambulatory and visble on the unit. Well-groomed. Remarkably improved. Adherent to treatment. Euthymic mood with normal range affect. Cognitively intact. Benign hospital course. No somatic complaints offered at this time. Slept well on trazodone 25 mg po hs. No adverse effects reported. Warm In Worker contacted [id number] # [id number] at [phone] : Unable to establish contact with the pharmacist. Kept indefinitely on hold. Patient declines to resume citalopram.
[2019-09-17] MEDS: THIAMINE HCL 100 MG TABLET (FP) PO SCH (22:22)
[2019-09-17] MEDS: MELATONIN 5 MG TABLETS PO PRN (22:23)
[2019-09-17] MEDS: traZODone HCL 50 MG TABLET (FP) PO SCH (22:24)
[2019-09-17] MEDS: DOXAZOSIN MESYLATE 4 MG TABLET PO SCH (22:24)
[2019-09-18] MEDS: hydrALAZINE HCL 10 MG TABLET PO SCH ×4 (05:37→23:40)
[2019-09-18] MEDS: chlordiazePOXIDE HCL 10 MG CAPSULE PO SCH ×2 (05:37→17:40)
[2019-09-18] MEDS: PRENATAL VITAMINS W/ FOLIC ACID TABLET (FP) PO SCH (10:06)
[2019-09-18] MEDS: CALCIUM 250MG/VIT-D 125 UNITS 1 COMBO TABLET PO SCH ×2 (10:06→22:07)
[2019-09-18] MEDS: FENOFIBRIC ACID 45 MG CAP PO SCH (10:06)
[2019-09-18] MEDS: HYDROCHLOROTHIAZIDE 12.5 MG CAPSULE (FP) PO SCH (10:06)
[2019-09-18] MEDS: PANTOPRAZOLE 40 MG TABLET PO SCH (10:06)
[2019-09-18] MEDS: LOSARTAN POTASSIUM 50 MG TABLET (FP) PO SCH (10:09)
[2019-09-18] MEDS: FLUCONAZOLE 100 MG TABLET (UD) PO SCH (10:51)
--- NOTE | 2019-09-18 10:59 | PN ---
S CIWA - CIWA Score Nausea/Vomitin-No Nausea/No Vomiting Muscle Tremors: None Anxiety: 2 Agitation: 0-Normal Activity Paroxysmal Sweats: 1-Minimal Palms Moist Orientation: 0-Oriented Tacttile Disturbances: 0-None Auditory Disturbances: 0-None Visual Disturbances: 0-None Headache: 0-None Present CIWA-Ar Total Score: 3 [facility] Progress Note (SOAP) Subjective: c/o mild withdrawal symptoms. Objective: 09/18/19 10:58 Vital Signs 09/18/19 09/18/19 09/18/19 03:30 06:37 08:37 Temperature 97.0 F L 96.5 F L Pulse Rate 73 81 Respiratory 16 18 18 Rate Blood Pressure 98/64 135/67 Laboratory Last Values WBC 3.3 K/mm3 (4.0-10.0) L 09/14/19 12:05 RBC 5.77 M/mm3 (4.00-5.60) H 09/14/19 12:05 Hgb 15.4 GM/dL (11.7-16.9) 09/14/19 12:05 Hct 46.7 % (35.4-49) 09/14/19 12:05 MCV 80.9 fl (80-96) 09/14/19 12:05 MCH 26.6 pg (25.7-33.7) 09/14/19 12:05 MCHC 32.9 g/dl (32.0-35.9) 09/14/19 12:05 RDW 16.6 % (11.9-15.9) H 09/14/19 12:05 Plt Count 266 K/MM3 (134-434) D 09/14/19 12:05 MPV 8.5 fl (7.5-11.1) 09/14/19 12:05 Sodium 134 mmol/L (136-145) L 09/14/19 12:05 Potassium 4.1 mmol/L (3.5-5.1) 09/14/19 12:05 Chloride 97 mmol/L (98-107) L 09/14/19 12:05 Carbon Dioxide 25 mmol/L (21-32) 09/14/19 12:05 Anion Gap 12 MMOL/L (8-16) 09/14/19 12:05 BUN 21.6 mg/dL (7-18) H 09/16/19 08:00 Creatinine 1.7 mg/dL (0.55-1.3) H 09/16/19 08:00 Est GFR (CKD-EPI)AfAm 46.00 09/16/19 08:00 Est GFR (CKD-EPI)NonAf 39.69 09/16/19 08:00 Random Glucose 142 mg/dL (74-106) H 09/14/19 12:05 Calcium 8.5 mg/dL (8.5-10.1) 09/14/19 12:05 Total Bilirubin 0.4 mg/dL (0.2-1) 09/14/19 12:05 AST 30 U/L (15-37) 09/14/19 12:05 ALT 21 U/L (13-61) 09/14/19 12:05 Alkaline Phosphatase 48 U/L (45-117) 09/14/19 12:05 Total Protein 8.3 g/dl (6.4-8.2) H 09/14/19 12:05 Albumin 4.0 g/dl (3.4-5.0) 09/14/19 12:05 RPR Titer Nonreactive (NONREACTIVE) 09/14/19 12:05 Labs noted. Assessment: 09/18/19 10:58 AOX 3, in no respiratory distress. Full ROM, ambulating in the unit. Mild Withdrawal symptoms. For d/c tomorrow. Plan: continue detox. D/C in AM.
[2019-09-18] MEDS: traZODone HCL 50 MG TABLET (FP) PO SCH (22:06)
[2019-09-18] MEDS: MELATONIN 5 MG TABLETS PO PRN (22:07)
[2019-09-18] MEDS: THIAMINE HCL 100 MG TABLET (FP) PO SCH (22:07)
[2019-09-18] MEDS: DOXAZOSIN MESYLATE 4 MG TABLET PO SCH (22:08)
[2019-09-19] MEDS ORDERED: chlordiazePOXIDE HCL 10 MG CAPSULE PO ONE (05:00)
[2019-09-19] MEDS: hydrALAZINE HCL 10 MG TABLET PO SCH (05:45)
[2019-09-19 06:57] VITALS: BP 114/70; PULSE 67; TEMP 96.9
--- NOTE | 2019-09-19 08:52 | DS ---
[facility] Detox Discharge Summary Admission Date: 09/14/19 Discharge Date: 09/19/19 - History Present History: Alcohol Dependence Additional Comments: 69 years old male admitted on 09/14/19 for alcohol withdrawal sx management treated with librium detox regiment patient has completed the librim regiment and tolerated well seen by psychiatrist mane kauffmanzaviktoriya patient is alert oriented x 3 speech clearly coherently ambulating steady gait cardiac s1s2 regular rate rhythm ekg indicated left ventricular hypertrophy patient is asypmtomatic no chest pain no shortness of breath no dizziness respiratory clear lungs bilaterally on auscultation skin warm and dry Pertinent Past History: time for discharge: 30 minutes - Physical Exam Results Vital Signs: Vital Signs Temperature 96.9 F L 09/19/19 06:56 Pulse Rate 67 09/19/19 06:56 Respiratory Rate 18 09/19/19 06:56 Blood Pressure 114/70 09/19/19 06:56 O2 Sat by Pulse Oximetry (%) Pertinent Admission Physical Exam Findings: alcohol withdrawal Laboratory Last Values WBC 3.3 K/mm3 (4.0-10.0) L 09/14/19 12:05 RBC 5.77 M/mm3 (4.00-5.60) H 09/14/19 12:05 Hgb 15.4 GM/dL (11.7-16.9) 09/14/19 12:05 Hct 46.7 % (35.4-49) 09/14/19 12:05 MCV 80.9 fl (80-96) 09/14/19 12:05 MCH 26.6 pg (25.7-33.7) 09/14/19 12:05 MCHC 32.9 g/dl (32.0-35.9) 09/14/19 12:05 RDW 16.6 % (11.9-15.9) H 09/14/19 12:05 Plt Count 266 K/MM3 (134-434) D 09/14/19 12:05 MPV 8.5 fl (7.5-11.1) 09/14/19 12:05 Sodium 134 mmol/L (136-145) L 09/14/19 12:05 Potassium 4.1 mmol/L (3.5-5.1) 09/14/19 12:05 Chloride 97 mmol/L (98-107) L 09/14/19 12:05 Carbon Dioxide 25 mmol/L (21-32) 09/14/19 12:05 Anion Gap 12 MMOL/L (8-16) 09/14/19 12:05 BUN 21.6 mg/dL (7-18) H 09/16/19 08:00 Creatinine 1.7 mg/dL (0.55-1.3) H 09/16/19 08:00 Est GFR (CKD-EPI)AfAm 46.00 09/16/19 08:00 Est GFR (CKD-EPI)NonAf 39.69 09/16/19 08:00 Random Glucose 142 mg/dL (74-106) H 09/14/19 12:05 Calcium 8.5 mg/dL (8.5-10.1) 09/14/19 12:05 Total Bilirubin 0.4 mg/dL (0.2-1) 09/14/19 12:05 AST 30 U/L (15-37) 09/14/19 12:05 ALT 21 U/L (13-61) 09/14/19 12:05 Alkaline Phosphatase 48 U/L (45-117) 09/14/19 12:05 Total Protein 8.3 g/dl (6.4-8.2) H 09/14/19 12:05 Albumin 4.0 g/dl (3.4-5.0) 09/14/19 12:05 RPR Titer Nonreactive (NONREACTIVE) 09/14/19 12:05 lab noted - Treatment Hospital Course: Detox Protocol Followed, Detoxed Safely, Responded well, Discharged Condition Good, Rehab Referral Accepted Patient has Accepted a Rehab Referral to: [facility] - Medication Discharge Medications: Ambulatory Orders Pantoprazole Sodium [Protonix -] 40 mg PO DAILY 05/22/17 Doxazosin Mesylate [Cardura -] 8 mg PO HS #30 mg 05/26/17 Fenofibrate Nanocrystallized [Fenofibrate] 145 mg PO DAILY #30 mg 05/26/17 Citalopram Hydrobromide [Celexa -] 20 mg PO DAILY #30 tablet 07/28/17 traZODone HCL [Desyrel -] 50 mg PO HS #30 tablet 07/28/17 Hydralazine HCl 10 mg PO Q6H 09/05/18 Calcium 250Mg/Vit-D 125 Units [Oscal 250 mg+D -] 1 combo PO BID 09/06/18 Hydrochlorothiazide 12.5 mg PO DAILY #14 tablet 09/07/18 Losartan Potassium [Cozaar -] 50 mg PO DAILY #14 tablet 09/07/18 - Diagnosis (1) Substance induced mood disorder Status: Suspected (2) Alcohol dependence with uncomplicated withdrawal Status: Acute (3) Renal insufficiency, mild Status: Chronic (4) BPH (benign prostatic hyperplasia) Status: Chronic Qualifiers: Lower urinary tract symptom presence: symptoms present Lower urinary tract symptom detail: urinary hesitancy Qualified Code(s): N40.1 - Benign prostatic hyperplasia with lower urinary tract symptoms; R39.11 - Hesitancy of micturition (5) GERD (gastroesophageal reflux disease) Status: Chronic Qualifiers: Esophagitis presence: esophagitis presence not specified Qualified Code(s) : K21.9 - Gastro-esophageal reflux disease without esophagitis (6) Hyperlipidemia Status: Chronic Qualifiers: Hyperlipidemia type: pure hypercholesterolemia Qualified Code(s): E78.00 - Pure hypercholesterolemia, unspecified (7) Hypertension Status: Chronic Qualifiers: Hypertension type: essential hypertension Qualified Code(s): I10 - Essential (primary) hypertension (8) Hypocalcemia Status: Chronic - AMA Did Patient Leave Against Medical Advice: No CIWA Score - CIWA Score Nausea/Vomitin-No Nausea/No Vomiting Muscle Tremors: None Anxiety: 1-Mildly Anxious Agitation: 0-Normal Activity Paroxysmal Sweats: No Perspiration Orientation: 0-Oriented Tacttile Disturbances: 0-None Auditory Disturbances: 0-None Visual Disturbances: 0-None Headache: 0-None Present CIWA-Ar Total Score: 1
== END 2019-09-19 08:40 | disposition home or self-care (01) | DRG 897 ==
LOC: YASAS 09:45 → Y3N 11:56
PROVIDERS: ADMIT Allergy & Immunology; ATTEND Allergy & Immunology
PROC: HZ2ZZZZ Detoxification Services for Substance Abuse Treatment (ICD-10-PCS; principal; 2019-09-14)
DX: F10.230 Alcohol dependence with withdrawal, uncomplicated (principal); B37.0 Candidal stomatitis; F19.24 Other psychoactive substance dependence with psychoactive substance-induced mood disorder; F32.9 Major depressive disorder, single episode, unspecified; I10 Essential (primary) hypertension; E78.5 Hyperlipidemia, unspecified; N40.0 Benign prostatic hyperplasia without lower urinary tract symptoms; N28.9 Disorder of kidney and ureter, unspecified; K21.9 Gastro-esophageal reflux disease without esophagitis; G47.00 Insomnia, unspecified; Z86.69 Personal history of other diseases of the nervous system and sense organs
CPT/HCPCS: 36415; 80053; 82565; 84520; 85027; 86593; 93005; 93010; Q0162

== ENCOUNTER 2020-05-15 11:14 | Inpatient (IN) | payer OTHER ==
--- NOTE | 2020-05-15 11:40 | BHS.RME ---
Substance Use & Tx History - Substance Use History Alcohol Substance amount: 1 pint vodka Frequency of use: Daily Substance route: Oral Date of Last Use: 05/15/20 (started age 16) Physical/Psych/Mental Status - Behavior General Behavior: Increased activity (restlessness, agitation) Eye Contact: Normal - Cooperativeness Cooperativeness: Cooperative - Thinking Thought Processes: Tight, Logical, Goal Directed - Physical Health Problems Is patient presently having any pain?: No Does patient presently have any injuries (include location): No Does patient currently have a fever: No Is patient : No CIWA Nausea/Vomitin Muscle Tremors: 3 Anxiety: 3 Agitation: 2 Paroxysmal Sweats: 2 Orientation: 2-Disoriented Date<2 days Tacttile Disturbances: 1-Very Mild Itch/Numbness Auditory Disturbances: 0-None Visual Disturbances: 0-None Headache: 1-Very Mild CIWA-Ar Total Score: 16
--- NOTE | 2020-05-15 12:14 | HP ---
CIWA Score Nausea/Vomitin Muscle Tremors: 3 Anxiety: 3 Agitation: 2 Paroxysmal Sweats: 2 Orientation: 2-Disoriented Date<2 days Tacttile Disturbances: 1-Very Mild Itch/Numbness Auditory Disturbances: 0-None Visual Disturbances: 0-None Headache: 1-Very Mild CIWA-Ar Total Score: 16 - Admission Criteria OASAS Guidelines: Admission for Medically Managed Detox: Requires at least one of the followin. CIWA greater than 12 2. Seizures within the past 24 hours 3. Delirium tremens within the past 24 hours 4. Hallucinations within the past 24 hours 5. Acute intervention needed for co occurring medical disorder 6. Acute intervention needed for co occurring psychiatric disorder 7. Severe withdrawal that cannot be handled at a lower level of care (continued vomiting, continued diarrhea, abnormal vital signs) requiring intravenous medication and/or fluids 8. Admitting History and Physical - Admission Chief Complaint: Mr. Howard presents to [facility] stating he is here because "I need to do this because I can't control my drinking right now". He requests admission to detox. History of Present Illness: Mr. Howard presents to [facility] stating he is here because "I need to do this because I can't control my drinking right now". He requests admission to detox. He was last here in October of 2019 when he completed detox. Post discharge he went home and was abstinent for 6 months. 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, Syncope Cardiovascular: Yes: HTN, Hyperlipdemia Psych: Yes: Depression - Smoking History Smoking history: Never smoked Have you smoked in the past 12 months: No - Alcohol/Substance Use Hx Alcohol Use: Yes History of Substance Use: reports: None - Social History ADL: Independent Occupation: retired History of Recent Travel: No Admission ROS S - HPI Allergies/Adverse Reactions: Allergies Allergy/AdvReac Type Severity Reaction Status Date / Time No Known Allergies Allergy Verified 10/22/19 11:36 Exam Limitations: No Limitations - Ebola screening Have you traveled outside of the country in the last 21 days: No Have you been sick,other than usual withdrawal symptoms: No Do you have a fever: No - Review of Systems Constitutional: Changes in sleep (trouble staying asleep) EENT: reports: No Symptoms Reported Respiratory: reports: No Symptoms reported Cardiac: reports: No Symptoms Reported GI: reports: No Symptoms Reported : reports: No Symptoms Reported Musculoskeletal: reports: No Symptoms Reported Integumentary: reports: No Symptoms Reported Neuro: reports: No Symptoms reported Endocrine: reports: No Symptoms Reported Hematology: reports: No Symptoms Reported Psychiatric: reports: Anxious Patient History - Patient Medical History Hx Anemia: No Hx Asthma: No Hx Chronic Obstructive Pulmonary Disease (COPD): No Hx Cancer: No Hx Cardiac Disorders: No Hx Congestive Heart Failure: No Hx Hypertension: Yes Hx Hypercholesterolemia: Yes (ON MEDS) Hx Pacemaker: No HX Cerebrovascular Accident: No Hx Seizures: Yes (ALCOHOL RLT SEIZURE 2010) Hx Dementia: No Hx Diabetes: No Hx Gastrointestinal Disorders: No Hx Liver Disease: No Hx Genitourinary Disorders: No Hx Sexually Transmitted Disorders: No Hx Renal Disease (ESRD): No Hx Thyroid Disease: No Hx Human Immunodeficiency Virus (HIV): No (never been tested,do not want the test) Hx Hepatitis C: No (negative) Hx Depression: Yes Hx Suicide Attempt: No Hx Bipolar Disorder: No Hx Schizophrenia: No - Patient Surgical History Past Surgical History: Yes Hx Neurologic Surgery: Yes (Pituitary gland benigntumor removed in 2010) Hx Cataract Extraction: No Hx Cardiac Surgery: No Hx Lung Surgery: No Hx Breast Surgery: No Hx Breast Biopsy: No Hx Abdominal Surgery: No Hx Appendectomy: No Hx Cholecystectomy: No Hx Genitourinary Surgery: No Hx Section: No Hx Orthopedic Surgery: No Anesthesia Reaction: No - PPD History Date: 10/24/19 Results: 0 mm - Smoking Cessation Smoking history: Never smoked Have you smoked in the past 12 months: No Hx Chewing Tobacco Use: No Initiated information on smoking cessation: No Admission Physical Exam S - Physical General Appearance: Yes: Nourished, Appropriately Dressed, Tremorous HEENTM: Yes: EOMI, Hearing grossly Normal, Normocephalic, Normal Voice Respiratory: Yes: Lungs Clear, No Respiratory Distress, No Accessory Muscle Use Neck: Yes: Within Normal Limits, Supple Breast: Yes: Breast Exam Deferred Cardiology: Yes: Regular Rhythm, Regular Rate Abdominal: Yes: Normal Bowel Sounds, Non Tender, Soft, Protuberent Genitourinary: Yes: Other Back: Yes: Normal Inspection Musculoskeletal: Yes: Gait Steady Extremities: Yes: Normal Inspection, Non-Tender Neurological: Yes: Alert, Normal Response Integumentary: Yes: Within Normal Limits - Diagnostic (1) Alcohol dependence with uncomplicated withdrawal Current Visit: Yes Status: Acute (2) Depressive disorder Current Visit: Yes Status: Chronic Comment: By history. (3) Hypertension Current Visit: Yes Status: Chronic Qualifiers: Hypertension type: essential hypertension Qualified Code(s): I10 - Essential (primary) hypertension Cleared for Admission [facility] - Detox or Rehab [facility] Level of Care: Medically Managed Detox Regimen/Protocol: Librium Breathalyzer - Breathalyzer Breathalyzer: 0.241 Urine Drug Screen - Test Device Lot number: [id number] Expiration date: 07/10/21 - Control Is test valid?: Yes - Results Drug screen NEGATIVE: No Inpatient Rehab Admission - Rehab Decision to Admit Inpatient rehab admission?: No
[2020-05-15 12:20] VITALS: BMI 29.2
[2020-05-15] MEDS ORDERED: ACETAMINOPHEN 325 MG TABLET (FP) PO PRN ×2 (12:25)
[2020-05-15] MEDS ORDERED: ONDANSETRON *ODT* 4 MG TABLET SL PRN (12:25)
[2020-05-15] MEDS ORDERED: BISMUTH SUBSALICYLATE 262 MG/15 ML BTL PO PRN (12:25)
[2020-05-15] MEDS ORDERED: MAGNESIUM HYDROX 2400MG/30ML ORAL SUSPENSION 30 ML CUP PO PRN (12:25)
[2020-05-15] MEDS ORDERED: IBUPROFEN 400 MG TABLET (FP) PO PRN (12:25)
[2020-05-15] MEDS ORDERED: MAGNESIUM CITRATE 300 ML BOTTLE PO PRN (12:25)
[2020-05-15] MEDS ORDERED: METHOCARBAMOL 500 MG TABLET PO PRN (12:25)
[2020-05-15] MEDS ORDERED: MAG HYDROX/AL HYDROX/SIMETH 30 ML UNIT-DOSE CUP PO PRN (12:25)
[2020-05-15] MEDS ORDERED: MENTHOL/PHENOL 1 EACH UD MM PRN (12:25)
[2020-05-15] MEDS ORDERED: chlordiazePOXIDE HCL 25 MG CAPSULE PO PRN (12:25)
[2020-05-15] MEDS ORDERED: chlordiazePOXIDE HCL 25 MG CAPSULE ONE (12:31)
[2020-05-15] MEDS ORDERED: chlordiazePOXIDE HCL 25 MG CAPSULE PO ONE (12:33)
[2020-05-15] MEDS ORDERED: PATIENT'S OWN MEDICATION (NON-FORMULARY) (Sitagliptin Phos/Metformin Hcl [Janumet 50-1,000 PO SCH (13:15)
[2020-05-15] MEDS: metFORMIN HCL 500 MG TABLET (FP) PO SCH (13:39)
[2020-05-15] MEDS: LOSARTAN POTASSIUM 50 MG TABLET PO SCH (13:39)
[2020-05-15] MEDS: TAMSULOSIN HCL 0.4 MG CAP PO SCH (13:39)
[2020-05-15] MEDS: amLODIPine BESYLATE 5 MG TABLET (FP) PO SCH (13:39)
[2020-05-15] MEDS: PANTOPRAZOLE 40 MG TABLET PO SCH (13:39)
[2020-05-15] MEDS: HYDROCHLOROTHIAZIDE 12.5 MG CAPSULE (FP) PO SCH (13:39)
[2020-05-15] MEDS ORDERED: hydrOXYzine PAMOATE 25 MG CAPSULE (FP) PO SCH (14:00)
[2020-05-15] MEDS ORDERED: hydrOXYzine PAMOATE 25 MG CAPSULE (FP) PO PRN (15:18)
[2020-05-15] MEDS: sitaGLIPtin PHOSPHATE 50 MG TABLET PO SCH (15:34)
[2020-05-15] MEDS: chlordiazePOXIDE HCL 25 MG CAPSULE PO SCH ×2 (16:37→22:06)
[2020-05-15 18:04] LABS: HEMATOCRIT 42.9 % (35.4-49); HEMOGLOBIN 14.2 GM/dL (11.7-16.9); MCH 26.8 pg (25.7-33.7); MCHC 33.2 g/dl (32.0-35.9); MEAN CELL VOLUME 80.9 fl (80-96); MEAN PLT VOLUME 8.2 fl (7.5-11.1); PLATELET COUNT 311 K/MM3 (134-434); RDW 18.3 % (11.9-15.9); WHITE BLOOD COUNT 5.2 K/mm3 (4.0-10.0)
[2020-05-15 18:17] LABS: ALBUMIN 4.5 g/dl (3.4-5.0); BILIRUBIN,TOTAL 0.6 mg/dL (0.2-1); BLOOD UREA NITROGEN 33.7 mg/dL (7-18); CREATININE 3.9 mg/dL (0.55-1.3); POTASSIUM 4.1 mmol/L (3.5-5.1); TOT PROT 8.4 g/dl (6.4-8.2)
[2020-05-15] MEDS: MELATONIN 5 MG TABLETS PO SCH (22:06)
[2020-05-15] MEDS: THIAMINE HCL 100 MG TABLET (FP) PO SCH (22:06)
[2020-05-16] MEDS: chlordiazePOXIDE HCL 25 MG CAPSULE PO SCH ×4 (05:44→22:14)
[2020-05-16] MEDS: sitaGLIPtin PHOSPHATE 50 MG TABLET PO SCH (07:52)
[2020-05-16] MEDS: metFORMIN HCL 500 MG TABLET (FP) PO SCH (07:52)
--- NOTE | 2020-05-16 09:45 | CONSULT ---
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 Refer to addiction counselor's summary for further information Medical History: Significant for hypertension, obesity, dyslipidemia, GERD, withdrawal-related seizures, BPH (benign prostatic hyperplasia) and a history of neurosurgery (excision of a benign pituitary tumor) in 2010 Psychiatric History: Patient is known for multiple previous admissions to this facility. He reports that after the of his ex in 2017, he was started on Gabapentin and antidepressant medication by his primary care physician for depression. Reports only one previous psychiatric hospitalization in 2017 at [facility] for depression. He continues to have his psychotropic medications prescribed by his primary care physician. He is currently on Pristiq 50 mg/day and Trazadone 50 mg/hs. Denies previous suicidal attempt. At present, denies depressive symptoms, S/H ideations. However, reports feeling anxious and sleeping poorly Physical/Sexual Abuse/Trauma History: Denies history of abuse as a child or DV relationship as an adult. of ex in 2017 is reported by patient as a significant stressor. Told card writer hand that even though they were , they remained friends Mental Status Exam - Mental Status Exam Alert and Oriented to: Time, Place, Person Cognitive Function: Fair Patient Appearance: Disheveled Mood: Anxious Affect: Appropriate Patient Behavior: Cooperative Speech Pattern: Clear Voice Loudness: Normal Thought Process: Intact, Goal Oriented Hallucinations: Denies Suicidal Ideation: Denies Homicidal Ideation: Denies Insight/Judgement: Poor Sleep: Poorly Appetite: Poor Muscle strength/Tone: Normal Gait/Station: Normal Psychiatric Findings - Problem List ([place] 1, 2,3) (1) MDD (major depressive disorder), recurrent episode, moderate Current Visit: No Status: Chronic (2) Alcohol-induced sleep disorder Current Visit: No Status: Acute (3) Hypertension Current Visit: Yes Status: Chronic Qualifiers: Hypertension type: essential hypertension Qualified Code(s): I10 - Essential (primary) hypertension (4) BPH (benign prostatic hyperplasia) Current Visit: No Status: Chronic Qualifiers: Lower urinary tract symptom presence: symptoms present Lower urinary tract symptom detail: urinary hesitancy Qualified Code(s): N40.1 - Benign prostatic hyperplasia with lower urinary tract symptoms; R39.11 - Hesitancy of micturition (5) GERD (gastroesophageal reflux disease) Current Visit: No Status: Chronic Qualifiers: Esophagitis presence: esophagitis presence not specified Qualified Code(s): K21.9 - Gastro-esophageal reflux disease without esophagitis (6) Hyperlipidemia Current Visit: No Status: Chronic Qualifiers: Hyperlipidemia type: pure hypercholesterolemia Qualified Code(s): E78.00 - Pure hypercholesterolemia, unspecified (7) Alcohol related seizure Current Visit: No Status: Resolved (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 2) Start Effexor XR 75 mg po daily(equivalent to Pristiq 50 mg not formulary at this facility). 3) Continue inpatient detoxification
--- NOTE | 2020-05-16 09:48 | PN ---
S CIWA - CIWA Score Nausea/Vomitin-Mild Nausea/No Vomiting Muscle Tremors: 2 Anxiety: 2 Agitation: 2 Paroxysmal Sweats: No Perspiration Orientation: 0-Oriented Tacttile Disturbances: 0-None Auditory Disturbances: 0-None Visual Disturbances: 0-None Headache: 2-Mild CIWA-Ar Total Score: 9 BHS Progress Note (SOAP) Subjective: alert,irritable,anxious,interrupted sleep,tremor,aching pain Objective: 05/16/20 12:31 Vital Signs Temperature 98.7 F 05/16/20 09:16 Pulse Rate 106 H 05/16/20 09:16 Respiratory Rate 18 05/16/20 09:16 Blood Pressure 156/91 05/16/20 09:16 O2 Sat by Pulse Oximetry (%) 98 05/16/20 09:16 05/16/20 12:31 Laboratory Last Values WBC 5.2 K/mm3 (4.0-10.0) 05/15/20 12:30 RBC 5.30 M/mm3 (4.00-5.60) 05/15/20 12:30 Hgb 14.2 GM/dL (11.7-16.9) 05/15/20 12:30 Hct 42.9 % (35.4-49) 05/15/20 12:30 MCV 80.9 fl (80-96) 05/15/20 12:30 MCH 26.8 pg (25.7-33.7) 05/15/20 12:30 MCHC 33.2 g/dl (32.0-35.9) 05/15/20 12:30 RDW 18.3 % (11.9-15.9) H 05/15/20 12:30 Plt Count 311 K/MM3 (134-434) 05/15/20 12:30 MPV 8.2 fl (7.5-11.1) 05/15/20 12:30 Sodium 135 mmol/L (136-145) L 05/15/20 12:30 Potassium 4.1 mmol/L (3.5-5.1) 05/15/20 12:30 Chloride 101 mmol/L (98-107) 05/15/20 12:30 Carbon Dioxide 20 mmol/L (21-32) L 05/15/20 12:30 Anion Gap 14 MMOL/L (8-16) 05/15/20 12:30 BUN 33.7 mg/dL (7-18) H 05/15/20 12:30 Creatinine 3.9 mg/dL (0.55-1.3) H 05/15/20 12:30 Est GFR (CKD-EPI)AfAm 16.74 05/15/20 12:30 Est GFR (CKD-EPI)NonAf 14.44 05/15/20 12:30 POC Glucometer 134 UNITS (80-120) 05/16/20 05:46 Random Glucose 111 mg/dL (74-106) H 05/15/20 12:30 Calcium 8.0 mg/dL (8.5-10.1) L 05/15/20 12:30 Total Bilirubin 0.6 mg/dL (0.2-1) 05/15/20 12:30 AST 41 U/L (15-37) H 05/15/20 12:30 ALT 23 U/L (13-61) 05/15/20 12:30 Alkaline Phosphatase 52 U/L (45-117) 05/15/20 12:30 Total Protein 8.4 g/dl (6.4-8.2) H 05/15/20 12:30 Albumin 4.5 g/dl (3.4-5.0) 05/15/20 12:30 Syphilis Serology Non-reactive (NONREACTIVE) 05/15/20 12:30 COVID-19 (RADHA) Not detected (Not Detected) 05/15/20 13:35 HIV Ag/Ab Combo Qual Negative (NEGATIVE) 05/15/20 12:30 Assessment: 05/16/20 12:32 withdrawal symptom Plan: continue detox librium regimen,bun 33.7,creatinine 3.9,r/o renal insufficiency will d/c metformin,bgm achs with insulin coverage sliding scale, repeat bmp in am
[2020-05-16] MEDS: amLODIPine BESYLATE 5 MG TABLET (FP) PO SCH (10:25)
[2020-05-16] MEDS: LOSARTAN POTASSIUM 50 MG TABLET PO SCH (10:25)
[2020-05-16] MEDS: HYDROCHLOROTHIAZIDE 12.5 MG CAPSULE (FP) PO SCH (10:25)
[2020-05-16] MEDS: VENLAFAXINE HCL 75 MG E.R. CAPSULES PO SCH (10:25)
[2020-05-16] MEDS: PRENATAL VITAMINS W/ FOLIC ACID TABLET (FP) PO SCH (10:26)
[2020-05-16] MEDS: TAMSULOSIN HCL 0.4 MG CAP PO SCH (10:26)
[2020-05-16] MEDS: PANTOPRAZOLE 40 MG TABLET PO SCH (10:26)
--- NOTE | 2020-05-16 12:52 | PN ---
BHS Progress Note Note: due to renal insufficiency,d/c ibuprofen,diet luis felipe,no concentrated sweet,januvia adjusted to25 mgs instead of 50 mgs po daily,d/c metformin,d/c magnesium product, bgm achs with insulin coverage sliding scale,repeat bpm in am,close monitoring
[2020-05-16] MEDS: INSULIN (NOVOLOG) ASPART 100 UNITS/ML 10ML VIAL SQ SCH ×2 (17:00→22:15)
[2020-05-16] MEDS: THIAMINE HCL 100 MG TABLET (FP) PO SCH (22:14)
[2020-05-16] MEDS: MELATONIN 5 MG TABLETS PO SCH (22:15)
[2020-05-16] MEDS: traZODone HCL 50 MG TABLET (FP) PO SCH (22:16)
[2020-05-17] MEDS: chlordiazePOXIDE HCL 25 MG CAPSULE PO SCH ×4 (05:33→22:21)
[2020-05-17] MEDS: INSULIN (NOVOLOG) ASPART 100 UNITS/ML 10ML VIAL SQ SCH ×4 (06:35→22:22)
[2020-05-17] MEDS: VENLAFAXINE HCL 75 MG E.R. CAPSULES PO SCH (10:51)
[2020-05-17] MEDS: amLODIPine BESYLATE 5 MG TABLET (FP) PO SCH (10:51)
[2020-05-17] MEDS: PRENATAL VITAMINS W/ FOLIC ACID TABLET (FP) PO SCH (10:51)
[2020-05-17] MEDS: TAMSULOSIN HCL 0.4 MG CAP PO SCH (10:51)
[2020-05-17] MEDS: LOSARTAN POTASSIUM 50 MG TABLET PO SCH (10:51)
[2020-05-17] MEDS: HYDROCHLOROTHIAZIDE 12.5 MG CAPSULE (FP) PO SCH (10:51)
[2020-05-17] MEDS: PANTOPRAZOLE 40 MG TABLET PO SCH (10:51)
--- NOTE | 2020-05-17 11:14 | PN ---
S CIWA - CIWA Score Nausea/Vomitin-No Nausea/No Vomiting Muscle Tremors: 2 Anxiety: 1-Mildly Anxious Agitation: 2 Paroxysmal Sweats: 2 Orientation: 0-Oriented Tacttile Disturbances: 0-None Auditory Disturbances: 0-None Visual Disturbances: 0-None Headache: 0-None Present CIWA-Ar Total Score: 7 BHS Progress Note (SOAP) Subjective: restless mild shakes Objective: 05/17/20 11:13 Vital Signs Temperature 97.5 F L 05/17/20 05:54 Pulse Rate 93 H 05/17/20 05:54 Respiratory Rate 18 05/17/20 05:54 Blood Pressure 125/81 05/17/20 05:54 O2 Sat by Pulse Oximetry (%) 97 05/17/20 05:54 Laboratory Tests 05/15/20 05/15/20 05/15/20 12:30 12:30 12:30 WBC 5.2 RBC 5.30 Hgb 14.2 Hct 42.9 MCV 80.9 MCH 26.8 MCHC 33.2 RDW 18.3 H Plt Count 311 MPV 8.2 Sodium 135 L Potassium 4.1 Chloride 101 Carbon Dioxide 20 L Anion Gap 14 BUN 33.7 H Creatinine 3.9 H Est GFR (CKD-EPI)AfAm 16.74 Est GFR (CKD-EPI)NonAf 14.44 POC Glucometer Random Glucose 111 H Calcium 8.0 L Total Bilirubin 0.6 AST 41 H ALT 23 Alkaline Phosphatase 52 Total Protein 8.4 H Albumin 4.5 Syphilis Serology Non-reactive COVID-19 (RADHA) HIV Ag/Ab Combo Qual 05/15/20 05/15/20 05/15/20 12:30 13:02 13:35 WBC RBC Hgb Hct MCV MCH MCHC RDW Plt Count MPV Sodium Potassium Chloride Carbon Dioxide Anion Gap BUN Creatinine Est GFR (CKD-EPI)AfAm Est GFR (CKD-EPI)NonAf POC Glucometer 104 Random Glucose Calcium Total Bilirubin AST ALT Alkaline Phosphatase Total Protein Albumin Syphilis Serology COVID-19 (RADHA) Not detected HIV Ag/Ab Combo Qual Negative 05/15/20 05/16/20 05/16/20 16:35 05:46 16:45 WBC RBC Hgb Hct MCV MCH MCHC RDW Plt Count MPV Sodium Potassium Chloride Carbon Dioxide Anion Gap BUN Creatinine Est GFR (CKD-EPI)AfAm Est GFR (CKD-EPI)NonAf POC Glucometer 133 134 136 Random Glucose Calcium Total Bilirubin AST ALT Alkaline Phosphatase Total Protein Albumin Syphilis Serology COVID-19 (RADHA) HIV Ag/Ab Combo Qual 05/17/20 05:31 WBC RBC Hgb Hct MCV MCH MCHC RDW Plt Count MPV Sodium Potassium Chloride Carbon Dioxide Anion Gap BUN Creatinine Est GFR (CKD-EPI)AfAm Est GFR (CKD-EPI)NonAf POC Glucometer 115 Random Glucose Calcium Total Bilirubin AST ALT Alkaline Phosphatase Total Protein Albumin Syphilis Serology COVID-19 (RADHA) HIV Ag/Ab Combo Qual labs noted; repeated labs pending results aaox3 ambulating no acute distress Assessment: 05/17/20 11:13 withdrawals Plan: continue detox pending labs results
[2020-05-17 11:40] LABS: BLOOD UREA NITROGEN 25.3 mg/dL (7-18); CALCIUM 8.7 mg/dL (8.5-10.1); CREATININE 1.9 mg/dL (0.55-1.3); POTASSIUM 3.9 mmol/L (3.5-5.1)
[2020-05-17] MEDS ORDERED: INSULIN SLIDING SCALE (NOVOLOG) 1 VIAL SQ ONE (17:38)
[2020-05-17] MEDS: traZODone HCL 50 MG TABLET (FP) PO SCH (22:21)
[2020-05-17] MEDS: THIAMINE HCL 100 MG TABLET (FP) PO SCH (22:22)
[2020-05-17] MEDS: MELATONIN 5 MG TABLETS PO SCH (22:24)
[2020-05-18] MEDS ORDERED: chlordiazePOXIDE HCL 10 MG CAPSULE PO PRN
[2020-05-18] MEDS: chlordiazePOXIDE HCL 10 MG CAPSULE PO SCH ×4 (06:50→22:06)
[2020-05-18] MEDS: INSULIN (NOVOLOG) ASPART 100 UNITS/ML 10ML VIAL SQ SCH ×4 (06:51→22:07)
[2020-05-18] MEDS: TAMSULOSIN HCL 0.4 MG CAP PO SCH (10:16)
[2020-05-18] MEDS: amLODIPine BESYLATE 5 MG TABLET (FP) PO SCH (10:16)
[2020-05-18] MEDS: PRENATAL VITAMINS W/ FOLIC ACID TABLET (FP) PO SCH (10:16)
[2020-05-18] MEDS: LOSARTAN POTASSIUM 50 MG TABLET PO SCH (10:16)
[2020-05-18] MEDS: VENLAFAXINE HCL 75 MG E.R. CAPSULES PO SCH (10:16)
[2020-05-18] MEDS: HYDROCHLOROTHIAZIDE 12.5 MG CAPSULE (FP) PO SCH (10:16)
[2020-05-18] MEDS: PANTOPRAZOLE 40 MG TABLET PO SCH (10:16)
--- NOTE | 2020-05-18 10:48 | PN ---
S CIWA - CIWA Score Nausea/Vomitin-No Nausea/No Vomiting Muscle Tremors: 2 Anxiety: 1-Mildly Anxious Agitation: 1-Slight > Activity Paroxysmal Sweats: No Perspiration Orientation: 0-Oriented Tacttile Disturbances: 0-None Auditory Disturbances: 0-None Visual Disturbances: 0-None Headache: 0-None Present CIWA-Ar Total Score: 4 BHS Progress Note (SOAP) Subjective: feeling better little sweats Objective: 05/18/20 10:47 Vital Signs Temperature 97.3 F L 05/18/20 08:54 Pulse Rate 99 H 05/18/20 08:54 Respiratory Rate 18 05/18/20 08:54 Blood Pressure 127/73 05/18/20 08:54 O2 Sat by Pulse Oximetry (%) 96 05/18/20 08:54 Laboratory Tests 05/15/20 05/15/20 05/15/20 12:30 12:30 12:30 WBC 5.2 RBC 5.30 Hgb 14.2 Hct 42.9 MCV 80.9 MCH 26.8 MCHC 33.2 RDW 18.3 H Plt Count 311 MPV 8.2 Sodium 135 L Potassium 4.1 Chloride 101 Carbon Dioxide 20 L Anion Gap 14 BUN 33.7 H Creatinine 3.9 H Est GFR (CKD-EPI)AfAm 16.74 Est GFR (CKD-EPI)NonAf 14.44 POC Glucometer Random Glucose 111 H Calcium 8.0 L Total Bilirubin 0.6 AST 41 H ALT 23 Alkaline Phosphatase 52 Total Protein 8.4 H Albumin 4.5 Syphilis Serology Non-reactive COVID-19 (RADHA) HIV Ag/Ab Combo Qual 05/15/20 05/15/20 05/15/20 12:30 13:02 13:35 WBC RBC Hgb Hct MCV MCH MCHC RDW Plt Count MPV Sodium Potassium Chloride Carbon Dioxide Anion Gap BUN Creatinine Est GFR (CKD-EPI)AfAm Est GFR (CKD-EPI)NonAf POC Glucometer 104 Random Glucose Calcium Total Bilirubin AST ALT Alkaline Phosphatase Total Protein Albumin Syphilis Serology COVID-19 (RADHA) Not detected HIV Ag/Ab Combo Qual Negative 05/15/20 05/16/20 05/16/20 16:35 05:46 07:00 WBC RBC Hgb Hct MCV MCH MCHC RDW Plt Count MPV Sodium 132 L Potassium 3.9 Chloride 97 L Carbon Dioxide 27 Anion Gap 8 BUN 25.3 H Creatinine 1.9 H Est GFR (CKD-EPI)AfAm 39.93 Est GFR (CKD-EPI)NonAf 34.45 POC Glucometer 133 134 Random Glucose 119 H Calcium 8.7 Total Bilirubin AST ALT Alkaline Phosphatase Total Protein Albumin Syphilis Serology COVID-19 (RADHA) HIV Ag/Ab Combo Qual 05/16/20 05/17/20 05/17/20 16:45 05:31 11:48 WBC RBC Hgb Hct MCV MCH MCHC RDW Plt Count MPV Sodium Potassium Chloride Carbon Dioxide Anion Gap BUN Creatinine Est GFR (CKD-EPI)AfAm Est GFR (CKD-EPI)NonAf POC Glucometer 136 115 132 Random Glucose Calcium Total Bilirubin AST ALT Alkaline Phosphatase Total Protein Albumin Syphilis Serology COVID-19 (RADHA) HIV Ag/Ab Combo Qual 05/17/20 05/18/20 16:44 05:57 WBC RBC Hgb Hct MCV MCH MCHC RDW Plt Count MPV Sodium Potassium Chloride Carbon Dioxide Anion Gap BUN Creatinine Est GFR (CKD-EPI)AfAm Est GFR (CKD-EPI)NonAf POC Glucometer 157 108 Random Glucose Calcium Total Bilirubin AST ALT Alkaline Phosphatase Total Protein Albumin Syphilis Serology COVID-19 (RADHA) HIV Ag/Ab Combo Qual repeated labs showing improvement aaox3 ambulating no acute distress Assessment: 05/18/20 10:48 withdrawals Plan: continue detox increase fluids
[2020-05-18] MEDS ORDERED: INSULIN SLIDING SCALE (NOVOLOG) 1 VIAL SQ ONE (17:48)
[2020-05-18] MEDS: traZODone HCL 50 MG TABLET (FP) PO SCH (22:06)
[2020-05-18] MEDS: THIAMINE HCL 100 MG TABLET (FP) PO SCH (22:07)
[2020-05-18] MEDS: MELATONIN 5 MG TABLETS PO SCH (23:22)
[2020-05-19] MEDS ORDERED: chlordiazePOXIDE HCL 10 MG CAPSULE PO SCH (05:00)
[2020-05-19] MEDS: INSULIN (NOVOLOG) ASPART 100 UNITS/ML 10ML VIAL SQ SCH ×2 (07:27→12:03)
[2020-05-19 10:00] VITALS: BP 163/75; PULSE 54; TEMP 98.6
[2020-05-19] MEDS: PRENATAL VITAMINS W/ FOLIC ACID TABLET (FP) PO SCH (10:35)
[2020-05-19] MEDS: HYDROCHLOROTHIAZIDE 12.5 MG CAPSULE (FP) PO SCH (10:35)
[2020-05-19] MEDS: amLODIPine BESYLATE 5 MG TABLET (FP) PO SCH (10:35)
[2020-05-19] MEDS: PANTOPRAZOLE 40 MG TABLET PO SCH (10:35)
[2020-05-19] MEDS: VENLAFAXINE HCL 75 MG E.R. CAPSULES PO SCH (10:35)
[2020-05-19] MEDS: TAMSULOSIN HCL 0.4 MG CAP PO SCH (10:35)
--- NOTE | 2020-05-19 10:49 | DS ---
[facility] Detox Discharge Summary Admission Date: 05/15/20 Discharge Date: 05/19/20 - History Present History: Alcohol Dependence - Physical Exam Results Vital Signs: Vital Signs Temperature 98.6 F 05/19/20 09:15 Pulse Rate 54 L 05/19/20 09:15 Respiratory Rate 17 05/19/20 09:15 Blood Pressure 163/75 05/19/20 09:15 O2 Sat by Pulse Oximetry (%) 100 05/19/20 09:15 Pertinent Admission Physical Exam Findings: Vital Signs Temperature 98.6 F 05/19/20 09:15 Pulse Rate 54 L 05/19/20 09:15 Respiratory Rate 17 05/19/20 09:15 Blood Pressure 163/75 05/19/20 09:15 O2 Sat by Pulse Oximetry (%) 100 05/19/20 09:15 Laboratory Tests 05/15/20 05/15/20 05/15/20 12:30 12:30 12:30 WBC 5.2 RBC 5.30 Hgb 14.2 Hct 42.9 MCV 80.9 MCH 26.8 MCHC 33.2 RDW 18.3 H Plt Count 311 MPV 8.2 Sodium 135 L Potassium 4.1 Chloride 101 Carbon Dioxide 20 L Anion Gap 14 BUN 33.7 H Creatinine 3.9 H Est GFR (CKD-EPI)AfAm 16.74 Est GFR (CKD-EPI)NonAf 14.44 POC Glucometer Random Glucose 111 H Calcium 8.0 L Total Bilirubin 0.6 AST 41 H ALT 23 Alkaline Phosphatase 52 Total Protein 8.4 H Albumin 4.5 Syphilis Serology Non-reactive COVID-19 (RADHA) HIV Ag/Ab Combo Qual 05/15/20 05/15/20 05/15/20 12:30 13:02 13:35 WBC RBC Hgb Hct MCV MCH MCHC RDW Plt Count MPV Sodium Potassium Chloride Carbon Dioxide Anion Gap BUN Creatinine Est GFR (CKD-EPI)AfAm Est GFR (CKD-EPI)NonAf POC Glucometer 104 Random Glucose Calcium Total Bilirubin AST ALT Alkaline Phosphatase Total Protein Albumin Syphilis Serology COVID-19 (RADHA) Not detected HIV Ag/Ab Combo Qual Negative 05/15/20 05/16/20 05/16/20 16:35 05:46 07:00 WBC RBC Hgb Hct MCV MCH MCHC RDW Plt Count MPV Sodium 132 L Potassium 3.9 Chloride 97 L Carbon Dioxide 27 Anion Gap 8 BUN 25.3 H Creatinine 1.9 H Est GFR (CKD-EPI)AfAm 39.93 Est GFR (CKD-EPI)NonAf 34.45 POC Glucometer 133 134 Random Glucose 119 H Calcium 8.7 Total Bilirubin AST ALT Alkaline Phosphatase Total Protein Albumin Syphilis Serology COVID-19 (RADHA) HIV Ag/Ab Combo Qual 05/16/20 05/17/20 05/17/20 16:45 05:31 11:48 WBC RBC Hgb Hct MCV MCH MCHC RDW Plt Count MPV Sodium Potassium Chloride Carbon Dioxide Anion Gap BUN Creatinine Est GFR (CKD-EPI)AfAm Est GFR (CKD-EPI)NonAf POC Glucometer 136 115 132 Random Glucose Calcium Total Bilirubin AST ALT Alkaline Phosphatase Total Protein Albumin Syphilis Serology COVID-19 (RADHA) HIV Ag/Ab Combo Qual 05/17/20 05/18/20 05/18/20 16:44 05:57 11:19 WBC RBC Hgb Hct MCV MCH MCHC RDW Plt Count MPV Sodium Potassium Chloride Carbon Dioxide Anion Gap BUN Creatinine Est GFR (CKD-EPI)AfAm Est GFR (CKD-EPI)NonAf POC Glucometer 157 108 126 Random Glucose Calcium Total Bilirubin AST ALT Alkaline Phosphatase Total Protein Albumin Syphilis Serology COVID-19 (RADHA) HIV Ag/Ab Combo Qual 05/18/20 05/19/20 16:48 05:27 WBC RBC Hgb Hct MCV MCH MCHC RDW Plt Count MPV Sodium Potassium Chloride Carbon Dioxide Anion Gap BUN Creatinine Est GFR (CKD-EPI)AfAm Est GFR (CKD-EPI)NonAf POC Glucometer 160 114 Random Glucose Calcium Total Bilirubin AST ALT Alkaline Phosphatase Total Protein Albumin Syphilis Serology COVID-19 (RADHA) HIV Ag/Ab Combo Qual labs noted aaox3 ambulating no acute distress lungs CTA - Treatment Hospital Course: Detox Protocol Followed, Detoxed Safely, Responded well, Discharged Condition Good, Rehab Referral Accepted - Medication Discharge Medications: Ambulatory Orders Pantoprazole Sodium [Protonix -] 40 mg PO DAILY 05/22/17 traZODone HCL [Desyrel -] 50 mg PO HS #30 tablet 07/28/17 Hydrochlorothiazide 12.5 mg PO DAILY #14 tablet 09/07/18 Losartan Potassium [Cozaar -] 50 mg PO DAILY #14 tablet 09/07/18 Desvenlafaxine Succinate [Pristiq] 50 mg PO DAILY 10/22/19 Amlodipine Besylate 5 mg PO DAILY 05/15/20 Fenofibrate Nanocrystallized [Fenofibrate] 145 mg PO DAILY 05/15/20 Gabapentin [Neurontin -] 100 mg PO Q8H 05/15/20 Sitagliptin Phos/Metformin HCl [Janumet 50-1,000 mg Tablet] 1 each PO DAILY 05/15/20 Tamsulosin HCl [Flomax] 0.4 mg PO DAILY 05/15/20 - Diagnosis (1) Alcohol dependence with uncomplicated withdrawal Current Visit: Yes Status: Chronic (2) Alcohol-induced anxiety disorder Current Visit: Yes Status: Chronic (3) Depressive disorder Current Visit: Yes Status: Chronic (4) Hypertension Current Visit: Yes Status: Chronic Qualifiers: Hypertension type: essential hypertension Qualified Code(s): I10 - Essential (primary) hypertension (5) Pituitary cyst Current Visit: Yes Status: Chronic (6) Alcohol-induced sleep disorder Current Visit: No Status: Acute (7) Azotemia Current Visit: No Status: Acute (8) Obesity Current Visit: No Status: Acute (9) Syncope Current Visit: No Status: Acute (10) Alcohol dependence with uncomplicated intoxication Current Visit: No Status: Chronic (11) Alcohol dependence with uncomplicated withdrawal Current Visit: No Status: Chronic (12) BPH (benign prostatic hyperplasia) Current Visit: No Status: Chronic Qualifiers: Lower urinary tract symptom presence: symptoms present Lower urinary tract symptom detail: urinary hesitancy Qualified Code(s): N40.1 - Benign prostatic hyperplasia with lower urinary tract symptoms; R39.11 - Hesitancy of micturition (13) GERD (gastroesophageal reflux disease) Current Visit: No Status: Chronic Qualifiers: Esophagitis presence: esophagitis presence not specified Qualified Code(s): K21.9 - Gastro-esophageal reflux disease without esophagitis (14) Hyperlipidemia Current Visit: No Status: Chronic Qualifiers: Hyperlipidemia type: pure hypercholesterolemia Qualified Code(s): E78.00 - Pure hypercholesterolemia, unspecified (15) Hypocalcemia Current Visit: No Status: Chronic (16) Insomnia Current Visit: No Status: Chronic (17) MDD (major depressive disorder), recurrent episode, moderate Current Visit: No Status: Chronic (18) Non-compliance Current Visit: No Status: Chronic (19) Renal insufficiency, mild Current Visit: No Status: Chronic (20) Alcohol-induced mood disorder Current Visit: No Status: Suspected (21) Depression (emotion) Current Visit: No Status: Suspected Qualifiers: Depression Type: dysthymia Qualified Code(s): F34.1 - Dysthymic disorder (22) Substance induced mood disorder Current Visit: No Status: Suspected (23) Alcohol related seizure Current Visit: No Status: Resolved (24) History of depression Current Visit: No Status: Resolved - AMA Did Patient Leave Against Medical Advice: No
[2020-05-20] MEDS ORDERED: chlordiazePOXIDE HCL 10 MG CAPSULE PO ONE (05:00)
== END 2020-05-19 12:42 | disposition other institution (70) | DRG 897 ==
LOC: YASAS 11:14 → Y6N 12:11
PROVIDERS: ADMIT Allergy & Immunology; ATTEND Allergy & Immunology
PROC: HZ2ZZZZ Detoxification Services for Substance Abuse Treatment (ICD-10-PCS; principal; 2020-05-15)
DX: F10.230 Alcohol dependence with withdrawal, uncomplicated (principal); F10.24 Alcohol dependence with alcohol-induced mood disorder; F10.280 Alcohol dependence with alcohol-induced anxiety disorder; F10.282 Alcohol dependence with alcohol-induced sleep disorder; F32.9 Major depressive disorder, single episode, unspecified; E78.00 Pure hypercholesterolemia, unspecified; E83.51 Hypocalcemia; I10 Essential (primary) hypertension; K21.9 Gastro-esophageal reflux disease without esophagitis; N28.9 Disorder of kidney and ureter, unspecified; N40.1 Benign prostatic hyperplasia with lower urinary tract symptoms; R39.11 Hesitancy of micturition; R79.89 Other specified abnormal findings of blood chemistry; Z86.018 Personal history of other benign neoplasm; Z86.69 Personal history of other diseases of the nervous system and sense organs
CPT/HCPCS: 36415; 80048; 80053; 82962; 85027; 86780; 87389; U0003

== ENCOUNTER 2020-12-27 10:00 | Inpatient (IN) | payer OTHER ==
[2020-12-27 10:23] VITALS: BMI 28.6
[2020-12-27] MEDS ORDERED: ACETAMINOPHEN 325 MG TABLET (FP) PO PRN ×2 (11:07)
[2020-12-27] MEDS ORDERED: MAG HYDROX/AL HYDROX/SIMETH 30 ML UNIT-DOSE CUP PO PRN (11:07)
[2020-12-27] MEDS ORDERED: BISMUTH SUBSALICYLATE 262 MG/15 ML BTL PO PRN (11:07)
[2020-12-27] MEDS ORDERED: MENTHOL/PHENOL 1 EACH UD MM PRN (11:07)
[2020-12-27] MEDS ORDERED: IBUPROFEN 400 MG TABLET (FP) PO PRN (11:07)
[2020-12-27] MEDS ORDERED: ONDANSETRON *ODT* 4 MG TABLET SL PRN (11:07)
[2020-12-27] MEDS ORDERED: MAGNESIUM HYDROX 2400MG/30ML ORAL SUSPENSION 30 ML CUP PO PRN (11:07)
[2020-12-27] MEDS ORDERED: MAGNESIUM CITRATE 300 ML BOTTLE PO PRN (11:07)
[2020-12-27] MEDS ORDERED: LORazepam 1 MG TABLET PO PRN (11:07)
[2020-12-27] MEDS ORDERED: METHOCARBAMOL 500 MG TABLET PO PRN (11:07)
[2020-12-27] MEDS: PRENATAL VITAMINS W/ FOLIC ACID TABLET (FP) PO SCH (11:54)
[2020-12-27 12:52] LABS: HEMATOCRIT 44.7 % (35.4-49); HEMOGLOBIN 14.9 GM/dL (11.7-16.9); MCHC 33.3 g/dl (32.0-35.9); MEAN PLT VOLUME 8.9 fl (7.5-11.1); PLATELET COUNT 344 K/MM3 (134-434); RBC 5.74 M/mm3 (4.00-5.60); RDW 15.3 % (11.9-15.9); WHITE BLOOD COUNT 6.4 K/mm3 (4.0-10.0)
[2020-12-27 13:11] LABS: ALBUMIN 3.9 g/dl (3.4-5.0); BLOOD UREA NITROGEN 8.7 mg/dL (7-18); CALCIUM 9.2 mg/dL (8.5-10.1)
[2020-12-27 13:14] LABS: CREATININE 1.1 mg/dL (0.55-1.3)
[2020-12-27 13:17] LABS: BILIRUBIN,TOTAL 0.2 mg/dL (0.2-1); TOT PROT 7.8 g/dl (6.4-8.2)
[2020-12-27] MEDS: hydrOXYzine PAMOATE 25 MG CAPSULE (FP) PO SCH ×3 (14:05→22:20)
[2020-12-27] MEDS: GABAPENTIN 100 MG CAPSULE PO SCH ×2 (14:05→22:20)
[2020-12-27] MEDS: LORazepam 2 MG TABLET PO SCH ×2 (17:20→22:20)
[2020-12-27] MEDS: traZODone HCL 50 MG TABLET (FP) PO SCH (22:20)
[2020-12-27] MEDS: MELATONIN 5 MG TABLETS PO SCH (22:20)
[2020-12-27] MEDS: THIAMINE HCL 100 MG TABLET (FP) PO SCH (22:20)
[2020-12-28] MEDS: hydrOXYzine PAMOATE 25 MG CAPSULE (FP) PO SCH ×5 (05:58→22:11)
[2020-12-28] MEDS: GABAPENTIN 100 MG CAPSULE PO SCH ×3 (05:58→22:11)
[2020-12-28] MEDS: LORazepam 2 MG TABLET PO SCH ×4 (05:59→22:11)
[2020-12-28] MEDS: PRENATAL VITAMINS W/ FOLIC ACID TABLET (FP) PO SCH (10:18)
[2020-12-28] MEDS: VENLAFAXINE HCL 75 MG E.R. CAPSULES PO SCH (10:18)
[2020-12-28] MEDS ORDERED: LOSARTAN POTASSIUM 50 MG TABLET PO SCH (12:45)
[2020-12-28] MEDS ORDERED: amLODIPine BESYLATE 5 MG TABLET (FP) PO SCH (12:45)
[2020-12-28] MEDS: TAMSULOSIN HCL 0.4 MG CAP PO SCH (13:51)
[2020-12-28] MEDS ORDERED: cloNIDine HCL 0.1 MG TABLET PO PRN (14:51)
[2020-12-28] MEDS ORDERED: cloNIDine HCL 0.1 MG TABLET PO ONE (15:00)
[2020-12-28] MEDS: THIAMINE HCL 100 MG TABLET (FP) PO SCH (22:11)
[2020-12-28] MEDS: traZODone HCL 50 MG TABLET (FP) PO SCH (22:11)
[2020-12-28] MEDS: MELATONIN 5 MG TABLETS PO SCH (22:12)
[2020-12-29] MEDS: LORazepam 1 MG TABLET PO SCH ×4 (05:26→22:17)
[2020-12-29] MEDS: GABAPENTIN 100 MG CAPSULE PO SCH ×3 (05:26→22:16)
[2020-12-29] MEDS: hydrOXYzine PAMOATE 25 MG CAPSULE (FP) PO SCH ×5 (05:26→22:18)
[2020-12-29] MEDS: amLODIPine BESYLATE 10 MG TABLET (FP) PO SCH (10:19)
[2020-12-29] MEDS: LOSARTAN POTASSIUM 50 MG TABLET PO SCH (10:19)
[2020-12-29] MEDS: VENLAFAXINE HCL 75 MG E.R. CAPSULES PO SCH (10:19)
[2020-12-29] MEDS: PRENATAL VITAMINS W/ FOLIC ACID TABLET (FP) PO SCH (10:21)
[2020-12-29] MEDS: TAMSULOSIN HCL 0.4 MG CAP PO SCH (13:40)
[2020-12-29] MEDS: HYDROCHLOROTHIAZIDE 12.5 MG CAPSULE (FP) PO SCH (15:12)
[2020-12-29] MEDS: THIAMINE HCL 100 MG TABLET (FP) PO SCH (22:16)
[2020-12-29] MEDS: MELATONIN 5 MG TABLETS PO SCH (22:16)
[2020-12-29] MEDS: traZODone HCL 50 MG TABLET (FP) PO SCH (22:16)
[2020-12-30] MEDS ORDERED: LORazepam 0.5 MG TABLET PO PRN
[2020-12-30] MEDS: GABAPENTIN 100 MG CAPSULE PO SCH ×3 (05:58→22:31)
[2020-12-30] MEDS: hydrOXYzine PAMOATE 25 MG CAPSULE (FP) PO SCH ×5 (05:58→22:28)
[2020-12-30] MEDS: LORazepam 0.5 MG TABLET PO SCH ×4 (06:01→22:28)
[2020-12-30 06:07] LABS: SARS-CoV-2 NAA Not Detected (Not Detected)
[2020-12-30] MEDS: TAMSULOSIN HCL 0.4 MG CAP PO SCH (10:19)
[2020-12-30] MEDS: PRENATAL VITAMINS W/ FOLIC ACID TABLET (FP) PO SCH (10:19)
[2020-12-30] MEDS: amLODIPine BESYLATE 10 MG TABLET (FP) PO SCH (10:19)
[2020-12-30] MEDS: VENLAFAXINE HCL 75 MG E.R. CAPSULES PO SCH (10:21)
[2020-12-30] MEDS: HYDROCHLOROTHIAZIDE 12.5 MG CAPSULE (FP) PO SCH (10:21)
[2020-12-30] MEDS: LOSARTAN POTASSIUM 50 MG TABLET PO SCH (10:21)
[2020-12-30] MEDS: traZODone HCL 50 MG TABLET (FP) PO SCH (22:27)
[2020-12-30] MEDS: MELATONIN 5 MG TABLETS PO SCH (22:28)
[2020-12-30] MEDS: THIAMINE HCL 100 MG TABLET (FP) PO SCH (22:28)
[2020-12-31] MEDS ORDERED: LORazepam 0.5 MG TABLET PO ONE (05:00)
[2020-12-31] MEDS: GABAPENTIN 100 MG CAPSULE PO SCH (06:02)
[2020-12-31] MEDS: hydrOXYzine PAMOATE 25 MG CAPSULE (FP) PO SCH ×2 (06:02→09:12)
[2020-12-31] MEDS: HYDROCHLOROTHIAZIDE 12.5 MG CAPSULE (FP) PO SCH (09:12)
[2020-12-31] MEDS: PRENATAL VITAMINS W/ FOLIC ACID TABLET (FP) PO SCH (09:12)
[2020-12-31] MEDS: TAMSULOSIN HCL 0.4 MG CAP PO SCH (09:12)
[2020-12-31] MEDS: LOSARTAN POTASSIUM 50 MG TABLET PO SCH (09:12)
[2020-12-31] MEDS: amLODIPine BESYLATE 10 MG TABLET (FP) PO SCH (09:12)
[2020-12-31] MEDS: VENLAFAXINE HCL 75 MG E.R. CAPSULES PO SCH (09:12)
[2020-12-31 09:32] VITALS: TEMP 98.2
[2020-12-31 11:20] VITALS: BP 160/93; PULSE 102
== END 2020-12-31 11:06 | disposition home or self-care (01) | DRG 897 ==
LOC: YASAS 10:00 → Y6N 11:01
PROVIDERS: ADMIT Allergy & Immunology; ATTEND Allergy & Immunology
PROC: HZ2ZZZZ Detoxification Services for Substance Abuse Treatment (ICD-10-PCS; principal; 2020-12-27)
DX: F10.230 Alcohol dependence with withdrawal, uncomplicated (principal); F33.1 Major depressive disorder, recurrent, moderate; F10.24 Alcohol dependence with alcohol-induced mood disorder; F10.282 Alcohol dependence with alcohol-induced sleep disorder; F19.24 Other psychoactive substance dependence with psychoactive substance-induced mood disorder; F34.1 Dysthymic disorder; E78.00 Pure hypercholesterolemia, unspecified; E11.9 Type 2 diabetes mellitus without complications; Z79.84 Long term (current) use of oral hypoglycemic drugs; I10 Essential (primary) hypertension; N40.1 Benign prostatic hyperplasia with lower urinary tract symptoms; R39.11 Hesitancy of micturition; N28.9 Disorder of kidney and ureter, unspecified; Z86.69 Personal history of other diseases of the nervous system and sense organs
CPT/HCPCS: 36415; 80053; 82962; 85027; 86780; C9803; J0735; U0003; U0005

== ENCOUNTER 2021-01-30 09:06 | Inpatient (IN) | payer OTHER ==
[2021-01-30 09:37] VITALS: BMI 26.2
[2021-01-30] MEDS ORDERED: BISMUTH SUBSALICYLATE 262 MG/15 ML BTL PO PRN (10:31)
[2021-01-30] MEDS ORDERED: MAGNESIUM CITRATE 300 ML BOTTLE PO PRN (10:31)
[2021-01-30] MEDS ORDERED: MAG HYDROX/AL HYDROX/SIMETH 30 ML UNIT-DOSE CUP PO PRN (10:31)
[2021-01-30] MEDS ORDERED: METHOCARBAMOL 500 MG TABLET PO PRN (10:31)
[2021-01-30] MEDS ORDERED: ONDANSETRON *ODT* 4 MG TABLET SL PRN (10:31)
[2021-01-30] MEDS ORDERED: MAGNESIUM HYDROX 2400MG/30ML ORAL SUSPENSION 30 ML CUP PO PRN (10:31)
[2021-01-30] MEDS ORDERED: ACETAMINOPHEN 325 MG TABLET (FP) PO PRN ×2 (10:31)
[2021-01-30] MEDS ORDERED: MENTHOL/PHENOL 1 EACH UD MM PRN (10:31)
[2021-01-30] MEDS ORDERED: IBUPROFEN 400 MG TABLET (FP) PO PRN (10:31)
[2021-01-30] MEDS: PRENATAL VITAMINS W/ FOLIC ACID TABLET (FP) PO SCH (11:34)
[2021-01-30] MEDS: TAMSULOSIN HCL 0.4 MG CAP PO SCH (11:34)
[2021-01-30] MEDS: amLODIPine BESYLATE 10 MG TABLET (FP) PO SCH (11:34)
[2021-01-30 13:24] LABS: HEMATOCRIT 43.3 % (35.4-49); HEMOGLOBIN 14.1 GM/dL (11.7-16.9); MCH 25.6 pg (25.7-33.7); MCHC 32.7 g/dl (32.0-35.9); MEAN CELL VOLUME 78.4 fl (80-96); MEAN PLT VOLUME 8.3 fl (7.5-11.1); PLATELET COUNT 385 10^3/uL (134-434); RBC 5.52 M/mm3 (4.00-5.60); RDW 16.8 % (11.9-15.9)
[2021-01-30 13:45] LABS: CALCIUM 9.2 mg/dL (8.5-10.1)
[2021-01-30 13:47] LABS: CREATININE 1.2 mg/dL (0.55-1.3)
[2021-01-30 13:48] LABS: BILIRUBIN,TOTAL 0.7 mg/dL (0.2-1); TOT PROT 7.8 g/dl (6.4-8.2)
[2021-01-30 13:51] LABS: BLOOD UREA NITROGEN 5.3 mg/dL (7-18)
[2021-01-30] MEDS: hydrOXYzine PAMOATE 25 MG CAPSULE (FP) PO SCH ×3 (14:56→22:27)
[2021-01-30] MEDS ORDERED: traZODone HCL 50 MG TABLET (FP) PO SCH (22:00)
[2021-01-30] MEDS ORDERED: MELATONIN 5 MG TABLETS PO SCH (22:00)
[2021-01-30] MEDS ORDERED: THIAMINE HCL 100 MG TABLET (FP) PO SCH (22:00)
[2021-01-31] MEDS: hydrOXYzine PAMOATE 25 MG CAPSULE (FP) PO SCH ×3 (05:30→13:21)
[2021-01-31] MEDS ORDERED: sitaGLIPtin PHOSPHATE 50 MG TABLET PO SCH (07:00)
[2021-01-31] MEDS ORDERED: metFORMIN HCL 500 MG TABLET (FP) PO SCH (07:00)
[2021-01-31] MEDS: TAMSULOSIN HCL 0.4 MG CAP PO SCH (09:06)
[2021-01-31] MEDS ORDERED: LOSARTAN POTASSIUM 50 MG TABLET PO SCH (10:00)
[2021-01-31] MEDS ORDERED: HYDROCHLOROTHIAZIDE 12.5 MG CAPSULE (FP) PO SCH (10:00)
[2021-01-31] MEDS ORDERED: PATIENT'S OWN MEDICATION (NON-FORMULARY) (Sitagliptin Phos/Metformin Hcl [Janumet 50-1,000 PO SCH (10:00)
[2021-01-31] MEDS ORDERED: PANTOPRAZOLE 40 MG TABLET PO SCH (10:00)
[2021-01-31] MEDS ORDERED: FENOFIBRIC ACID 135 MG CAP PO SCH (10:00)
[2021-01-31] MEDS: amLODIPine BESYLATE 10 MG TABLET (FP) PO SCH (10:06)
[2021-01-31] MEDS: PRENATAL VITAMINS W/ FOLIC ACID TABLET (FP) PO SCH (10:06)
[2021-01-31 12:48] VITALS: BP 117/66; PULSE 87; TEMP 96.4
== END 2021-01-31 15:56 | disposition other institution (70) | DRG 897 ==
LOC: YASAS 09:06 → UNDOADMIN 10:29 → Y3N 10:29
PROVIDERS: ADMIT Allergy & Immunology; ATTEND Allergy & Immunology
PROC: HZ2ZZZZ Detoxification Services for Substance Abuse Treatment (ICD-10-PCS; principal; 2021-01-30)
DX: F10.230 Alcohol dependence with withdrawal, uncomplicated (principal); F11.20 Opioid dependence, uncomplicated; F10.24 Alcohol dependence with alcohol-induced mood disorder; F10.282 Alcohol dependence with alcohol-induced sleep disorder; F19.24 Other psychoactive substance dependence with psychoactive substance-induced mood disorder; F32.9 Major depressive disorder, single episode, unspecified; I10 Essential (primary) hypertension; E11.9 Type 2 diabetes mellitus without complications; E78.5 Hyperlipidemia, unspecified; G47.00 Insomnia, unspecified; K21.9 Gastro-esophageal reflux disease without esophagitis; N40.1 Benign prostatic hyperplasia with lower urinary tract symptoms; R39.11 Hesitancy of micturition; Z91.19 Patient's noncompliance with other medical treatment and regimen; Z79.84 Long term (current) use of oral hypoglycemic drugs
CPT/HCPCS: 36415; 80053; 82962; 85027; 86780; C9803; U0003; U0005

== ENCOUNTER 2023-06-17 16:33 | Inpatient (IN) | payer OTHER ==
[2023-06-17 17:19] VITALS: BMI 27.1
[2023-06-17] MEDS ORDERED: MAG HYDROX/AL HYDROX/SIMETH 30 ML UNIT-DOSE CUP PO PRN (18:16)
[2023-06-17] MEDS ORDERED: ACETAMINOPHEN 325 MG TABLET (FP) PO PRN (18:16)
[2023-06-17] MEDS ORDERED: ONDANSETRON *ODT* 4 MG TABLET SL PRN (18:16)
[2023-06-17] MEDS ORDERED: IBUPROFEN 600 MG TABLET (FP) PO PRN (18:16)
[2023-06-17] MEDS ORDERED: LOPERAMIDE HCL 2 MG CAPSULE PO PRN (18:16)
[2023-06-17] MEDS ORDERED: BISMUTH SUBSALICYLATE 524 MG/30 ML PO PRN (18:16)
[2023-06-17] MEDS ORDERED: LORazepam 2 MG TABLET PO ONE (18:16)
[2023-06-17] MEDS ORDERED: IBUPROFEN 400 MG TABLET (FP) PO PRN (18:16)
[2023-06-17] MEDS ORDERED: NALOXONE HCL (KLOXXADO) 8 MG SPRAY NS PRN (18:16)
[2023-06-17] MEDS ORDERED: LORazepam 1 MG TABLET PO PRN (18:16)
[2023-06-17] MEDS ORDERED: NALOXONE HCL 0.4 MG/ML VIAL IM PRN (18:16)
[2023-06-17] MEDS ORDERED: BENZOCAINE/MENTHOL (CHLORASEPTIC ) LOZENGE MM PRN (18:16)
[2023-06-17] MEDS ORDERED: DICYCLOMINE HCL 10 MG CAPSULE PO PRN (18:16)
[2023-06-17] MEDS ORDERED: BENZONATATE 200 MG CAPSULE PO PRN (18:16)
[2023-06-17] MEDS ORDERED: MAGNESIUM HYDROX 2400MG/30ML ORAL SUSPENSION 30 ML CUP PO PRN (18:16)
[2023-06-17] MEDS ORDERED: POLYETHYLENE GLYCOL (HEALTHYLAX) 3350 17 GM PACKET PO PRN (18:16)
[2023-06-17] MEDS ORDERED: guaiFENesin 600 MG TABLET.ER (FP) PO PRN (18:16)
[2023-06-17] MEDS ORDERED: ACETAMINOPHEN 325 MG TABLET (FP) ONE (19:00)
[2023-06-17] MEDS: THIAMINE HCL 100 MG TABLET (FP) PO SCH (22:22)
[2023-06-17] MEDS: MELATONIN 5 MG TABLETS PO SCH (22:22)
[2023-06-17] MEDS: BACLOFEN 10 MG TABLET (FP) PO PRN (22:22)
[2023-06-17] MEDS: LORazepam 1 MG TABLET PO SCH (23:02)
[2023-06-18] MEDS: hydrOXYzine PAMOATE 25 MG CAPSULE (FP) PO PRN (05:44)
[2023-06-18] MEDS: BACLOFEN 10 MG TABLET (FP) PO PRN ×2 (05:45→22:37)
[2023-06-18] MEDS: LORazepam 1 MG TABLET PO SCH ×4 (05:45→22:35)
[2023-06-18] MEDS: metFORMIN HCL 500 MG TABLET (FP) PO SCH ×2 (06:07→17:28)
[2023-06-18] MEDS: sitaGLIPtin PHOSPHATE 50 MG TABLET PO SCH (06:07)
[2023-06-18] MEDS: amLODIPine BESYLATE 10 MG TABLET (FP) PO SCH (09:08)
[2023-06-18] MEDS: TAMSULOSIN HCL 0.4 MG CAP PO SCH (09:08)
[2023-06-18] MEDS: PANTOPRAZOLE 40 MG TABLET PO SCH (09:09)
[2023-06-18] MEDS: HYDROCHLOROTHIAZIDE 12.5 MG CAPSULE (FP) PO SCH (09:09)
[2023-06-18] MEDS: PRENATAL VITAMINS W/ FOLIC ACID TABLET (FP) PO SCH (10:19)
[2023-06-18] MEDS: LOSARTAN POTASSIUM 50 MG TABLET PO SCH (10:19)
[2023-06-18] MEDS: FENOFIBRIC ACID 135 MG CAP PO SCH (10:42)
[2023-06-18 11:38] LABS: HEMATOCRIT 42.3 % (35.4-49); HEMOGLOBIN 14.5 GM/dL (11.7-16.9); MCH 26.1 pg (25.7-33.7); MCHC 34.2 g/dl (32.0-35.9); MEAN CELL VOLUME 76.3 fl (80-96); MEAN PLT VOLUME 8.3 fl (7.5-11.1); PLATELET COUNT 275 10^3/uL (134-434); RBC 5.54 M/mm3 (4.00-5.60); RDW 16.1 % (11.9-15.9); WHITE BLOOD COUNT 5.3 K/mm3 (4.0-10.0)
[2023-06-18] MEDS ORDERED: PNEUMOC 20-VAL CONJ-DIP CRM/PF 0.5 ML SYRINGE IM ONE (12:00)
[2023-06-18 12:41] LABS: CHLORIDE 104 mmol/L (98-107); SODIUM 137 mmol/L (136-145)
[2023-06-18 12:44] LABS: ANION GAP 9 mmol/L (4-13); BLOOD UREA NITROGEN 11.5 mg/dL (7-18); CALCIUM 8.4 mg/dL (8.5-10.1); CO2 24 mmol/L (21-32); GLUCOSE,RANDOM 113 mg/dL (74-106)
[2023-06-18 12:45] LABS: ALBUMIN 3.7 g/dl (3.4-5.0)
[2023-06-18 12:47] LABS: SGPT/ALT 28 U/L (13-61)
[2023-06-18 12:48] LABS: CREATININE 1.2 mg/dL (0.55-1.3); SGOT/AST 40 U/L (15-37)
[2023-06-18 12:49] LABS: BILIRUBIN,TOTAL 0.9 mg/dL (0.2-1); TOT PROT 7.4 g/dl (6.4-8.2)
[2023-06-18 12:50] LABS: ALK PHOS 43 U/L (45-117)
[2023-06-18] MEDS: LACTULOSE 20 GM/30 ML UDC (FOR ORAL USE ONLY) PO SCH ×2 (13:29→22:35)
[2023-06-18] MEDS: LISINOPRIL 10 MG TABLET PO SCH (13:29)
[2023-06-18] MEDS ORDERED: LOSARTAN POTASSIUM 50 MG TABLET PO ONE (18:19)
[2023-06-18] MEDS: traZODone HCL 50 MG TABLET (FP) PO SCH (22:35)
[2023-06-18] MEDS: MELATONIN 5 MG TABLETS PO SCH (22:35)
[2023-06-18] MEDS: THIAMINE HCL 100 MG TABLET (FP) PO SCH (22:35)
[2023-06-19] MEDS: LACTULOSE 20 GM/30 ML UDC (FOR ORAL USE ONLY) PO SCH ×3 (05:42→21:59)
[2023-06-19] MEDS: LORazepam 1 MG TABLET PO SCH ×4 (05:43→22:01)
[2023-06-19] MEDS: hydrOXYzine PAMOATE 25 MG CAPSULE (FP) PO PRN ×2 (05:45→22:00)
[2023-06-19] MEDS: metFORMIN HCL 500 MG TABLET (FP) PO SCH ×2 (06:09→17:19)
[2023-06-19] MEDS: sitaGLIPtin PHOSPHATE 50 MG TABLET PO SCH (06:09)
[2023-06-19] MEDS: TAMSULOSIN HCL 0.4 MG CAP PO SCH (09:30)
[2023-06-19] MEDS: PANTOPRAZOLE 40 MG TABLET PO SCH (09:31)
[2023-06-19] MEDS: amLODIPine BESYLATE 10 MG TABLET (FP) PO SCH (09:31)
[2023-06-19] MEDS: LOSARTAN POTASSIUM 50 MG TABLET PO SCH (09:31)
[2023-06-19] MEDS: LISINOPRIL 10 MG TABLET PO SCH (09:32)
[2023-06-19] MEDS: HYDROCHLOROTHIAZIDE 12.5 MG CAPSULE (FP) PO SCH (09:32)
[2023-06-19] MEDS: PRENATAL VITAMINS W/ FOLIC ACID TABLET (FP) PO SCH (09:32)
[2023-06-19] MEDS: FENOFIBRIC ACID 135 MG CAP PO SCH (09:33)
[2023-06-19] MEDS ORDERED: LISINOPRIL 10 MG TABLET PO ONE (14:00)
[2023-06-19] MEDS: THIAMINE HCL 100 MG TABLET (FP) PO SCH (22:00)
[2023-06-19] MEDS: traZODone HCL 50 MG TABLET (FP) PO SCH (22:00)
[2023-06-19] MEDS: MELATONIN 5 MG TABLETS PO SCH (22:03)
[2023-06-20] MEDS ORDERED: LORazepam 0.5 MG TABLET PO PRN
[2023-06-20] MEDS: LORazepam 0.5 MG TABLET PO SCH ×3 (05:33→17:10)
[2023-06-20] MEDS: LACTULOSE 20 GM/30 ML UDC (FOR ORAL USE ONLY) PO SCH ×3 (05:33→17:37)
[2023-06-20] MEDS: metFORMIN HCL 500 MG TABLET (FP) PO SCH ×2 (06:17→17:13)
[2023-06-20] MEDS: sitaGLIPtin PHOSPHATE 50 MG TABLET PO SCH (06:17)
[2023-06-20] MEDS: LISINOPRIL 10 MG TABLET PO SCH (09:22)
[2023-06-20] MEDS: amLODIPine BESYLATE 10 MG TABLET (FP) PO SCH (09:22)
[2023-06-20] MEDS: HYDROCHLOROTHIAZIDE 12.5 MG CAPSULE (FP) PO SCH (09:22)
[2023-06-20] MEDS: TAMSULOSIN HCL 0.4 MG CAP PO SCH (09:22)
[2023-06-20] MEDS: FENOFIBRIC ACID 135 MG CAP PO SCH (09:22)
[2023-06-20] MEDS: PANTOPRAZOLE 40 MG TABLET PO SCH (09:22)
[2023-06-20] MEDS: LOSARTAN POTASSIUM 50 MG TABLET PO SCH (09:22)
[2023-06-20] MEDS: PRENATAL VITAMINS W/ FOLIC ACID TABLET (FP) PO SCH (09:23)
[2023-06-20 17:05] VITALS: BP 144/79; PULSE 113; RESP 18; TEMP 97.5
[2023-06-20] MEDS ORDERED: METOPROLOL TARTRATE 25 MG TABLET (FP) PO ONE ×2 (18:03→19:30)
[2023-06-21] MEDS ORDERED: LORazepam 0.5 MG TABLET PO ONE (05:00)
== END 2023-06-20 19:33 | disposition home or self-care (01) | DRG 897 ==
LOC: YASAS 16:33 → Y3N 18:25
PROVIDERS: ADMIT Allergy & Immunology; ATTEND Surgery
PROC: HZ2ZZZZ Detoxification Services for Substance Abuse Treatment (ICD-10-PCS; principal; 2023-06-17)
DX: F10.230 Alcohol dependence with withdrawal, uncomplicated (principal); E72.20 Disorder of urea cycle metabolism, unspecified; F19.24 Other psychoactive substance dependence with psychoactive substance-induced mood disorder; E78.5 Hyperlipidemia, unspecified; E78.00 Pure hypercholesterolemia, unspecified; I10 Essential (primary) hypertension; K21.9 Gastro-esophageal reflux disease without esophagitis; E11.59 Type 2 diabetes mellitus with other circulatory complications; Z79.84 Long term (current) use of oral hypoglycemic drugs; N40.1 Benign prostatic hyperplasia with lower urinary tract symptoms; R39.11 Hesitancy of micturition
CPT/HCPCS: 36415; 80053; 80307; 82140; 82962; 85027; 86780; 87635; 90677; J0475

== ENCOUNTER 2023-09-09 09:34 | Inpatient (IN) | payer OTHER, BC ==
[2023-09-09 09:59] VITALS: BMI 31.3
[2023-09-09] MEDS ORDERED: guaiFENesin 600 MG TABLET.ER (FP) PO PRN (10:56)
[2023-09-09] MEDS ORDERED: BENZONATATE 200 MG CAPSULE PO PRN (10:56)
[2023-09-09] MEDS ORDERED: BENZOCAINE/MENTHOL (CHLORASEPTIC ) LOZENGE MM PRN (10:56)
[2023-09-09] MEDS ORDERED: IBUPROFEN 600 MG TABLET (FP) PO PRN (10:56)
[2023-09-09] MEDS ORDERED: POLYETHYLENE GLYCOL (HEALTHYLAX) 3350 17 GM PACKET PO PRN (10:56)
[2023-09-09] MEDS ORDERED: IBUPROFEN 400 MG TABLET (FP) PO PRN (10:56)
[2023-09-09] MEDS ORDERED: MAGNESIUM HYDROX 2400MG/30ML ORAL SUSPENSION 30 ML CUP PO PRN (10:56)
[2023-09-09] MEDS ORDERED: ONDANSETRON *ODT* 4 MG TABLET SL PRN (10:56)
[2023-09-09] MEDS ORDERED: NALOXONE HCL 0.4 MG/ML VIAL IM PRN (10:56)
[2023-09-09] MEDS ORDERED: LOPERAMIDE HCL 2 MG CAPSULE PO PRN (10:56)
[2023-09-09] MEDS ORDERED: MAG HYDROX/AL HYDROX/SIMETH 30 ML UNIT-DOSE CUP PO PRN (10:56)
[2023-09-09] MEDS ORDERED: NALOXONE HCL (KLOXXADO) 8 MG SPRAY NS PRN (10:56)
[2023-09-09] MEDS ORDERED: amLODIPine BESYLATE 5 MG TABLET (FP) ONE (13:21)
[2023-09-09] MEDS: amLODIPine BESYLATE 5 MG TABLET (FP) PO ONE (13:22)
[2023-09-09] MEDS ORDERED: HYDROCHLOROTHIAZIDE 12.5 MG CAPSULE (FP) ONE (13:22)
[2023-09-09] MEDS: HYDROCHLOROTHIAZIDE 12.5 MG CAPSULE (FP) PO ONE (13:23)
[2023-09-09] MEDS: LORazepam 1 MG TABLET PO PRN (13:54)
[2023-09-09] MEDS: LOSARTAN POTASSIUM 50 MG TABLET PO ONE (14:59)
[2023-09-09] MEDS ORDERED: LORazepam 2 MG TABLET PO SCH (17:00)
[2023-09-09] MEDS: LORazepam 1 MG TABLET PO SCH (17:10)
[2023-09-09] MEDS: METOPROLOL TARTRATE 50 MG TABLET (FP) PO ONE (17:37)
[2023-09-09] MEDS: MELATONIN 5 MG TABLETS PO SCH (22:13)
[2023-09-09] MEDS: THIAMINE HCL 100 MG TABLET (FP) PO SCH (22:13)
[2023-09-10] MEDS: metFORMIN HCL 500 MG TABLET (FP) PO SCH (06:14)
[2023-09-10] MEDS: cloNIDine HCL 0.1 MG TABLET PO ONE ×2 (08:26→17:19)
[2023-09-10] MEDS: TAMSULOSIN HCL 0.4 MG CAP PO SCH (09:03)
[2023-09-10] MEDS ORDERED: LOSARTAN POTASSIUM 50 MG TABLET PO SCH (10:00)
[2023-09-10 10:01] LABS: HEMATOCRIT 43.4 % (35.4-49); HEMOGLOBIN 14.7 GM/dL (11.7-16.9); MCH 26.6 pg (25.7-33.7); MCHC 33.8 g/dl (32.0-35.9); MEAN CELL VOLUME 78.9 fl (80-96); MEAN PLT VOLUME 7.9 fl (7.5-11.1); PLATELET COUNT 253 10^3/uL (134-434); RDW 16.8 % (11.9-15.9)
[2023-09-10] MEDS: PANTOPRAZOLE 40 MG TABLET PO SCH (10:03)
[2023-09-10] MEDS: FENOFIBRIC ACID 135 MG CAP PO SCH (10:03)
[2023-09-10] MEDS: amLODIPine BESYLATE 5 MG TABLET (FP) PO SCH (10:03)
[2023-09-10] MEDS: PRENATAL VITAMINS W/ FOLIC ACID TABLET (FP) PO SCH (10:03)
[2023-09-10] MEDS: LOSARTAN POTASSIUM 50 MG TABLET PO SCH ×2 (10:04→22:10)
[2023-09-10] MEDS: HYDROCHLOROTHIAZIDE 12.5 MG CAPSULE (FP) PO SCH (10:04)
[2023-09-10 10:37] LABS: POTASSIUM 4.2 mmol/L (3.5-5.1)
[2023-09-10 10:40] LABS: ALBUMIN 3.6 g/dl (3.4-5.0); BLOOD UREA NITROGEN 11.2 mg/dL (7-18)
[2023-09-10 10:41] LABS: CALCIUM 8.9 mg/dL (8.5-10.1)
[2023-09-10 10:43] LABS: CREATININE 1.1 mg/dL (0.55-1.3)
[2023-09-10 10:45] LABS: BILIRUBIN,TOTAL 0.8 mg/dL (0.2-1); TOT PROT 7.4 g/dl (6.4-8.2)
[2023-09-10] MEDS: amLODIPine BESYLATE 5 MG TABLET (FP) PO ONE (14:04)
[2023-09-10] MEDS: traZODone HCL 50 MG TABLET (FP) PO SCH (22:10)
[2023-09-10] MEDS: ACETAMINOPHEN 325 MG TABLET (FP) PO PRN (22:11)
[2023-09-11] MEDS: LORazepam 1 MG TABLET PO SCH (05:37)
[2023-09-11] MEDS: sitaGLIPtin PHOSPHATE 50 MG TABLET PO SCH (06:14)
[2023-09-11] MEDS ORDERED: DESVENLAFAXINE SUCCINATE 50 MG PO SCH (10:00)
[2023-09-11] MEDS: OXYBUTYNIN CHLORIDE 5 MG TABLET PO SCH (10:01)
[2023-09-11] MEDS: amLODIPine BESYLATE 10 MG TABLET (FP) PO SCH (10:02)
[2023-09-11] MEDS: cloNIDine HCL 0.1 MG TABLET PO ONE (13:12)
[2023-09-11] MEDS: LACTULOSE 20 GM/30 ML UDC (FOR ORAL USE ONLY) PO SCH (13:12)
[2023-09-11] MEDS: BISMUTH SUBSALICYLATE 262 MG/15 ML BTL PO PRN (15:59)
[2023-09-11] MEDS: BACLOFEN 10 MG TABLET (FP) PO PRN (16:03)
[2023-09-12] MEDS ORDERED: LORazepam 0.5 MG TABLET PO PRN
[2023-09-12] MEDS: LORazepam 0.5 MG TABLET PO SCH (05:28)
[2023-09-12 08:07] VITALS: TEMP 97.7
[2023-09-12 09:27] VITALS: BP 174/78; PULSE 90; RESP 16
[2023-09-13] MEDS ORDERED: LORazepam 0.5 MG TABLET PO ONE (05:00)
== END 2023-09-12 08:55 | disposition home or self-care (01) | DRG 897 ==
LOC: YASAS 09:34 → Y3N 11:41
PROVIDERS: ADMIT Allergy & Immunology; ATTEND Allergy & Immunology
PROC: HZ2ZZZZ Detoxification Services for Substance Abuse Treatment (ICD-10-PCS; principal; 2023-09-09)
DX: F10.230 Alcohol dependence with withdrawal, uncomplicated (principal); F34.1 Dysthymic disorder; I10 Essential (primary) hypertension; K21.9 Gastro-esophageal reflux disease without esophagitis; E78.00 Pure hypercholesterolemia, unspecified; E11.59 Type 2 diabetes mellitus with other circulatory complications; Z79.84 Long term (current) use of oral hypoglycemic drugs; N40.1 Benign prostatic hyperplasia with lower urinary tract symptoms; R39.11 Hesitancy of micturition
CPT/HCPCS: 36415; 80053; 80307; 82140; 82962; 85027; 86780; 87635; J0475